=== PATIENT | female | born 1955 | race American Indian/Alaskan Native ===

== ENCOUNTER 2016-06-29 09:29 | Inpatient (IN) | payer OTHER ==
[2016-06-29] MEDS ORDERED: LASIX IV ONE ×2 (09:46→11:15)
--- NOTE | 2016-06-29 10:01 | Admit Criteria Form ---
Admission Criteria Documentation: HEART FAILURE: COMMON COMPLICATIONS Clinical Indications for Inpatient Care (Place 'X' for any and all applicable criteria): Ongoing inpatient care may be indicated for heart failure with ANY ONE of the following (1)(2)(3)(4)(5): [ ]I. Ongoing need for care for primary condition requiring frequent therapy adjustments because of changes in cardiac function (eg, drug dosage changes for drugs that are renally metabolized) [ ]II. New-onset heart failure [ ]III. Heart failure with decreased urine output not responsive to attempts to optimize volume status [ ]IV. Acute cardiac ischemia causing or associated with failure [X]V. Complications of heart failure, including ANY ONE of the following: [ ]a) Pericardial effusion [ ]b) Symptomatic pleural effusion [ ]c) O2 saturation <90% or PO2 < 60 mm Hg (8.0 kPa) on room air or require baseline supplemental O2 [ ]d) Tachypnea [X ]e) Dyspnea [ ]f) Syncope [ ]g) Change in mental status [ ]h) Acute renal insufficiency that is severe (reduction of more than 50% in estimated glomerular filtration rate from baseline) or progressive reduction of more than 25% in estimated glomerular filtration rate from baseline, with creatinine continuing to rise) [ ]i) Hemodynamic instability [ ]j) Anasarca [X ]k) Clinically significant metabolic abnormalities due to heart failure (eg, new-onset metabolic acidosis) Extended stay beyond goal length of stay for primary condition may be needed until ALL of the following are present(1)(3): [ ]a) Stable and effective diuretic regimen established (or patient on stable dialysis regimen if in chronic renal failure) [ ]b) Breathing comfortably at rest [ ]c) Saturation of arterial oxygen greater than 90% or at acceptable baseline [ ]d) Pulmonary edema absent or improved [ ]e) Hemodynamic stability [ ]f) Volume status acceptable on oral medication [ ]g) Peripheral or sacral edema absent or improved [ ]h) Renal function stable and manageable at a lower level of care [ ]i) Complications (eg, pleural effusion) resolved or manageable at a lower level of care [ ]j) Patient or caregiver has received written discharge instructions or educational material addressing activity level, diet, discharge medications, follow-up appointment, weight monitoring, and what to do if symptoms worsen The original [employer] content created by [employer] has been revised. The portions of the content which have been revised are identified through the use of italic text or in bold, and [facility] has neither reviewed nor approved the modified material.All other unmodified content is copyright [facility]. Please see references footnoted in the original [facility] edition 2016 Admission Criteria Met: Yes
[2016-06-29 10:34] LABS: Basophils % (Auto) 0.2 % (0.0-1.8); Eosinophils % (Auto) 1.7 % (0.0-4.3); Hematocrit 31.3 % (30.3-42.9); Hemoglobin 10.1 gm/dl (10.1-14.3); Mean Corpuscular HGB Conc 32 % (30-34); Mean Corpuscular Hemoglobin 28 pg (28-32); Mean Corpuscular Volume 88 fl (79-97); Platelet Count 218 K/mm3 (140-440); Red Blood Count 3.55 M/mm3 (3.65-5.03); Red Cell Distribution Width 15.8 % (13.2-15.2); White Blood Count 13.6 K/mm3 (4.5-11.0)
--- NOTE | 2016-06-29 10:36 | XRay Report ---
AP CHEST :06/29/16 10:03 CLINICAL: Shortness of breath. COMPARISON:None. FINDINGS: Large body habitus and suboptimal positioning. The heart is large. Central vascular congestion. Right basal opacification is suspicious for pneumonia. The pulmonary vessels are indistinct. No tubes or lines. IMPRESSION: Very limited examination. Suspect CHF and right basal pneumonia or atypical pulmonary edema.
[2016-06-29 10:41] LABS: Anion Gap 19 mmol/L; Blood Urea Nitrogen 38 mg/dL (7-17); Calcium 8.3 mg/dL (8.4-10.2); Carbon Dioxide 17 mmol/L (22-30); Chloride 107.2 mmol/L (98-107); Glucose 123 mg/dL (65-100); Potassium 5.1 mmol/L (3.6-5.0); Sodium 138 mmol/L (137-145)
[2016-06-29 11:27] LABS: ISTAT Base Excess -9; ISTAT HCO3 17.3; ISTAT PCO2 33.9 (35-45); ISTAT PH 7.315 (7.35-7.45); ISTAT PO2 146 (80-105); ISTAT SO2 99; ISTAT TCO2 18
--- NOTE | 2016-06-29 11:33 | Emergency Department Report ---
HPI - General Chief Complaint: Dyspnea/Respdistress Time Seen by Provider: 06/29/16 09:50 - HPI HPI: Chief complaint: Shortness of breath HPI: Patient is a 61-year-old female with a history of congestive heart failure , hypertension, diabetes and renal insufficiency states she's been having increased swelling to her extremities over the last week. Patient states the swelling will go down when she lays down at night. Patient denies fever, chest pain. Patient states she has a cough with white sputum. Patient had an episode of emesis this morning. Patient does not have any pain to her lower extremities Mode of arrival: [EMS] EMS placed the patient on BiPAP no meds were given as they were unable to place an IV Source: [Patient] Began: 5:00 this morning patient states the shortness of breath worsened Duration: Continuous Context: Patient states several months ago she was diagnosed with pneumonia Quality: Pain-free Severity: 0 out of 10 Improved with: O2 and BiPAP Worsened with: Nothing Associated signs and symptoms: See above ED Past Medical Hx - Past Medical History Previous Medical History?: Yes Hx Congestive Heart Failure: Yes Hx Diabetes: Yes Hx Kidney Stones: Yes (Early Kidney Failure) - Surgical History Past Surgical History?: Yes Hx Cholecystectomy: Yes - Social History Smoking Status: Unknown if ever smoked - Medications Home Medications: Home Medications Medication Instructions Recorded Confirmed Last Taken Type AtorvaSTATin [Lipitor] 20 mg PO DAILY 06/29/16 06/29/16 1 Day Ago History Carvedilol [Coreg] 25 mg PO BID 06/29/16 06/29/16 1 Day Ago History Hydrochlorothiazide [HCTZ] 25 mg PO QDAY 06/29/16 06/29/16 1 Day Ago History Insulin NPH/Regular [Novolin 70/30] 12 unit SQ QPM 06/29/16 06/29/16 1 Day Ago History Insulin NPH/Regular [Novolin 70/30] 13 unit SUB-Q QAM 06/29/16 06/29/16 1 Day Ago History Latanoprost 0.005% [Xalatan 0.005%] 1 drop OP QPM 06/29/16 06/29/16 1 Day Ago History amLODIPine [Norvasc] 10 mg PO DAILY 06/29/16 06/29/16 1 Day Ago History cloNIDine [Catapres] 0.1 mg PO BID 06/29/16 06/29/16 1 Day Ago History ED Review of Systems ROS: Stated complaint: KARLIE Other details as noted in HPI ROS Constitutional: No fever ENT: No uri symptoms Cardiovascular: No chest pain Respiratory: The HPI GI: No nausea vomiting or diarrhea : No dysuria frequency or urgency, Skin: No rash Neuro: No focal weakness or numbness Psych: No depression Taco/lymph: edema Physical Exam - Physical Exam Vital Signs: Vital Signs 06/29/16 06/29/16 06/29/16 09:31 10:23 10:24 Temperature 98 F Pulse Rate 83 82 80 Respiratory 36 H 25 H 25 H Rate Blood Pressure 152/77 138/66 Blood Pressure 152/77 [Left] O2 Sat by Pulse 96 100 Oximetry 06/29/16 06/29/16 10:28 10:35 Temperature Pulse Rate 81 Respiratory 25 H 24 Rate Blood Pressure Blood Pressure 138/66 [Left] O2 Sat by Pulse 100 100 Oximetry Physical Exam: GENERAL: The patient is well-developed well-nourished . Patient is currently on BiPAP with mild respiratory distress. HEENT: Normocephalic. Atraumatic. Extraocular motions are intact. Patient has moist mucous membranes. NECK: Supple. No meningitic signs are noted. There is no adenopathy noted. CHEST/LUNGS: Bibasilar rails There is mild respiratory distress noted. HEART/CARDIOVASCULAR: Regular. There is no tachycardia. There is no gallop rub or murmur. ABDOMEN: Abdomen is soft, nontender. Patient has normal bowel sounds. There is no abdominal distention. SKIN: There is no rash. There is 1-2+ bilateral pedal edema. There is no diaphoresis. NEURO: The patient is awake, alert, and oriented. The patient is cooperative. The patient has no focal neurologic deficits. The patient has normal speech. MUSCULOSKELETAL: There is no tenderness or deformity. There is no limitation range of motion. There is no evidence of acute injury. ED Course Vital Signs 06/29/16 06/29/16 06/29/16 09:31 10:23 10:24 Temperature 98 F Pulse Rate 83 82 80 Respiratory 36 H 25 H 25 H Rate Blood Pressure 152/77 138/66 Blood Pressure 152/77 [Left] O2 Sat by Pulse 96 100 Oximetry 06/29/16 06/29/16 10:28 10:35 Temperature Pulse Rate 81 Respiratory 25 H 24 Rate Blood Pressure Blood Pressure 138/66 [Left] O2 Sat by Pulse 100 100 Oximetry - Reevaluation(s) Reevaluation #1: 06/29/16 11:53 Patient given 20 mg of Lasix with 200 mL out mild improvement. Second dose of 40 mg of Lasix was given and patient was admitted to the hospitalist. ED Medical Decision Making - Lab Data Result diagrams: 06/29/16 10:06 06/29/16 10:06 Laboratory Tests 06/29/16 06/29/16 06/29/16 09:54 10:06 11:16 POC ABG pH 7.315 L POC ABG pCO2 33.9 L POC ABG pO2 146 H POC ABG HCO3 17.3 POC ABG Total CO2 18 POC ABG O2 Sat 99 POC ABG Base Excess -9 FiO2 50 Calcium 8.3 L NT-Pro-B Natriuret Pep 2135 H - EKG Data -: EKG Interpreted by Md EKG shows normal: sinus rhythm Rate: normal (80) - EKG Data When compared to previous EKG there are: previous EKG unavailable Interpretation: other (prolonged QT otherwise normal) - Radiology Data Radiology results: report reviewed (congestive heart failure) Critical care attestation.: If time is entered above; I have spent that time in minutes in the direct care of this critically ill patient, excluding procedure time. ED Disposition Clinical Impression: Renal insufficiency Congestive heart failure Qualifiers: Congestive heart failure type: unspecified congestive heart failure type Congestive heart failure chronicity: acute on chronic Qualified Code(s): I50.9 - Heart failure, unspecified Disposition: OP ADMITTED IP TO THIS HOSP Is pt being admited?: Yes Does the pt Need Aspirin: Yes Condition: Fair Time of Disposition: 11:16 (admit to the hospitalist)
[2016-06-29] MEDS ORDERED: ASPIRIN PO ONE (11:54)
--- NOTE | 2016-06-29 12:20 | History and Physical Report ---
History of Present Illness Date of examination: 06/29/16 Date of admission: 06/29/2016 Chief complaint: Increasing SOB History of present illness: Patient is a 61-year-old female with a history of congestive heart failure, hypertension, diabetes and renal insufficiency states she's been having increased swelling to her extremities over the last week. Patient states the swelling will go down when she lays down at night. Patient denies fever, chest pain. Patient states she has a cough with white sputum. Patient had an episode of emesis this morning. Patient does not have any pain to her lower extremities Mode of arrival: [EMS] EMS placed the patient on BiPAP no meds were given as they were unable to place an IV Source: [Patient] Began: 5:00 this morning patient states the shortness of breath worsened Duration: Continuous Context: Patient states several months ago she was diagnosed with pneumonia Quality: Pain-free Severity: 0 out of 10 Improved with: O2 and BiPAP Worsened with: Nothing Associated signs and symptoms: See above Past History Past Medical History: diabetes, heart failure, hypertension, hyperlipidemia, renal failure Past Surgical History: cholecystectomy Social history: lives with family Family history: hypertension Medications and Allergies Allergies Allergy/AdvReac Type Severity Reaction Status Date / Time No Known Allergies Allergy Unverified 06/29/16 09:31 Home Medications Medication Instructions Recorded Confirmed Last Taken Type AtorvaSTATin [Lipitor] 20 mg PO DAILY 06/29/16 06/29/16 1 Day Ago History Carvedilol [Coreg] 25 mg PO BID 06/29/16 06/29/16 1 Day Ago History Hydrochlorothiazide [HCTZ] 25 mg PO QDAY 06/29/16 06/29/16 1 Day Ago History Insulin NPH/Regular [Novolin 70/30] 12 unit SQ QPM 06/29/16 06/29/16 1 Day Ago History Insulin NPH/Regular [Novolin 70/30] 13 unit SUB-Q QAM 06/29/16 06/29/16 1 Day Ago History Latanoprost 0.005% [Xalatan 0.005%] 1 drop OP QPM 06/29/16 06/29/16 1 Day Ago History amLODIPine [Norvasc] 10 mg PO DAILY 06/29/16 06/29/16 1 Day Ago History cloNIDine [Catapres] 0.1 mg PO BID 06/29/16 06/29/16 1 Day Ago History Review of Systems All systems: negative Cardiovascular: orthopnea, edema, shortness of breath, dyspnea on exertion, leg edema Respiratory: shortness of breath, dyspnea on exertion Exam - Constitutional Vitals: Temp Pulse Resp BP Pulse Ox 98.0 F 81 24 138/66 100 06/29/16 09:31 06/29/16 10:28 06/29/16 10:35 06/29/16 10:06/29/16 10:35 General appearance: Present: no acute distress, well-nourished - EENT Eyes: Present: PERRL ENT: hearing intact, clear oral mucosa - Neck Neck: Present: supple, normal ROM - Respiratory Respiratory effort: normal Respiratory: bilateral: rales - Cardiovascular Heart Sounds: Present: S1 & S2. Absent: rub, click - Extremities Extremities: pulses symmetrical Extremity abnormal: edema (Pedal edema present) Peripheral Pulses: within normal limits - Abdominal General gastrointestinal: Present: soft, non-tender, non-distended, normal bowel sounds Female genitourinary: Present: normal - Integumentary Integumentary: Present: clear, warm, dry - Musculoskeletal Musculoskeletal: gait normal, strength equal bilaterally - Psychiatric Psychiatric: appropriate mood/affect, intact judgment & insight - Neurologic Neurologic: CNII-XII intact, moves all extremities Results - Labs CBC & Chem 7: 06/30/16 05:38 06/30/16 05:38 Labs: Abnormal lab results 06/29/16 06/29/16 06/29/16 Range/Units 09:54 10:06 10:06 WBC 13.6 H (4.5-11.0) K/mm3 RBC 3.55 L (3.65-5.03) M/mm3 RDW 15.8 H (13.2-15.2) % Lymph % (Auto) 6.2 L (13.4-35.0) % Lymph # 0.8 L (1.2-5.4) K/mm3 Gibson # 0.9 H (0.0-0.8) K/mm3 Seg Neutrophils % 85.0 H (40.0-70.0) % Seg Neutrophils # 11.5 H (1.8-7.7) K/mm3 POC ABG pH (7.35-7.45) POC ABG pCO2 (35-45) POC ABG pO2 (80-105) Potassium 5.1 H (3.6-5.0) mmol/L Chloride 107.2 H (98-107) mmol/L Carbon Dioxide 17 L (22-30) mmol/L BUN 38 H (7-17) mg/dL Creatinine 2.9 H (0.7-1.2) mg/dL Glucose 123 H (65-100) mg/dL Calcium 8.3 L (8.4-10.2) mg/dL NT-Pro-B Natriuret Pep 2135 H (0-900) pg/mL 06/29/16 Range/Units 11:16 WBC (4.5-11.0) K/mm3 RBC (3.65-5.03) M/mm3 RDW (13.2-15.2) % Lymph % (Auto) (13.4-35.0) % Lymph # (1.2-5.4) K/mm3 Gibson # (0.0-0.8) K/mm3 Seg Neutrophils % (40.0-70.0) % Seg Neutrophils # (1.8-7.7) K/mm3 POC ABG pH 7.315 L (7.35-7.45) POC ABG pCO2 33.9 L (35-45) POC ABG pO2 146 H (80-105) Potassium (3.6-5.0) mmol/L Chloride (98-107) mmol/L Carbon Dioxide (22-30) mmol/L BUN (7-17) mg/dL Creatinine (0.7-1.2) mg/dL Glucose (65-100) mg/dL Calcium (8.4-10.2) mg/dL NT-Pro-B Natriuret Pep (0-900) pg/mL - Imaging and Cardiology EKG: report reviewed (Sinus tach) Chest x-ray: report reviewed (c/w CHF) Assessment and Plan - Patient Problems (1) Acute exacerbation of CHF (congestive heart failure) Current Visit: Yes Status: Acute Plan to address problem: Lasix 40 mg q12 and Echo ordered (2) Renal insufficiency Current Visit: Yes Status: Chronic Plan to address problem: Donna Perez consulted (3) IDDM (insulin dependent diabetes mellitus) Current Visit: Yes Status: Chronic Plan to address problem: Cont Insulin and coverage (4) HTN (hypertension) Current Visit: Yes Status: Chronic Qualifiers: Hypertension type: essential hypertension Qualified Code(s): I10 - Essential (primary) hypertension Plan to address problem: Cont Anti hypertensives (5) Glaucoma Current Visit: Yes Status: Chronic Qualifiers: Laterality: bilateral (6) HLD (hyperlipidemia) Current Visit: Yes Status: Chronic Qualifiers: Hyperlipidemia type: mixed hyperlipidemia Qualified Code(s): E78.2 - Mixed hyperlipidemia Plan to address problem: Cont statins (7) DVT prophylaxis Current Visit: Yes Status: Acute Plan to address problem: On lovenox
[2016-06-29] MEDS ORDERED: TYLENOL PO PRN (12:25)
[2016-06-29] MEDS ORDERED: ZOFRAN IV PRN (12:25)
[2016-06-29] MEDS ORDERED: MILK OF MAGNESIA PO PRN (12:25)
[2016-06-29] MEDS ORDERED: DILAUDID IV PRN (12:25)
[2016-06-29] MEDS ORDERED: NOVOLOG SUB-Q NR (12:34)
[2016-06-29] MEDS ORDERED: DULCOLAX PR PRN (13:00)
[2016-06-29] MEDS: HCTZ PO SCH (16:03)
[2016-06-29] MEDS: CATAPRES PO SCH ×2 (16:03→21:56)
[2016-06-29] MEDS: NORVASC PO SCH (16:04)
[2016-06-29] MEDS: PEPCID PO SCH ×2 (16:04→21:56)
[2016-06-29] MEDS ORDERED: ASPIRIN ONE (16:05)
[2016-06-29] MEDS: COREG PO SCH ×2 (16:06→21:57)
[2016-06-29] MEDS ORDERED: XALATAN 0.005% OU SCH (18:00)
[2016-06-29] MEDS: LASIX IV SCH (19:07)
[2016-06-29] MEDS ORDERED: PEPCID PO SCH (22:00)
[2016-06-30] MEDS: LASIX IV SCH ×2 (06:28→17:08)
[2016-06-30 06:36] LABS: Basophils % (Auto) 0.3 % (0.0-1.8); Eosinophils % (Auto) 2.4 % (0.0-4.3); Hematocrit 29.4 % (30.3-42.9); Hemoglobin 9.4 gm/dl (10.1-14.3); Mean Corpuscular HGB Conc 32 % (30-34); Mean Corpuscular Hemoglobin 28 pg (28-32); Mean Corpuscular Volume 87 fl (79-97); Platelet Count 208 K/mm3 (140-440); Red Blood Count 3.39 M/mm3 (3.65-5.03); Red Cell Distribution Width 16.4 % (13.2-15.2); White Blood Count 7.2 K/mm3 (4.5-11.0)
[2016-06-30 06:56] LABS: Albumin 3.4 g/dL (3.9-5); Albumin/Globulin Ratio 0.9 %; BUN/Creatinine Ratio 12.9; Bilirubin,Total 0.2 mg/dL (0.1-1.2); Calcium 8.4 mg/dL (8.4-10.2); Chloride 103.8 mmol/L (98-107); Potassium 4.4 mmol/L (3.6-5.0)
[2016-06-30] MEDS: COREG PO SCH ×2 (10:04→21:59)
[2016-06-30] MEDS: PEPCID PO SCH ×2 (10:04→22:01)
[2016-06-30] MEDS: CATAPRES PO SCH ×2 (10:04→21:59)
[2016-06-30] MEDS: LOVENOX SUB-Q SCH (10:04)
[2016-06-30] MEDS: NORVASC PO SCH (10:05)
[2016-06-30] MEDS: HCTZ PO SCH (10:23)
--- NOTE | 2016-06-30 17:11 | Progress Note ---
Assessment and Plan Assessment and plan: Acute on chronic congestive heart failure unidentified was a systolic or diastolic - history of congestive heart failure and was treated in [facility] in January - Echo is done here pending the reading - Patient started with her home medications - IV Lasix 40 mg BID - CHF could be exacerbated by pneumonia - Fluid restriction, monitor ins and outs - CXR suggestive of pulmonary congestion and atypical pneumonia Atypical pneumonia - Patient is started on by mouth azithromycin Acute on chronic kidney disease - Patient she has kidney problem and has been following with Dr. Roy - Nephrology consult was placed - Renal ultrasound done Diabetes mellitus - Patient is on insulin - Sliding-scale insulin added - We will monitor accu checks, ADA diet Hypertension - Controlled - Continue home medications DVT Prophylaxis - On renally Lovenox Disposition Plan: continue inpatient care History Interval history: I have seen and evaluated the patient. Patient is getting better, she has edema on her legs. Patient has dry cough. Hospitalist Physical - Physical exam Narrative exam: Not in cardiopulmonary distress. The patient Is Obese. Vital signs as documented. Head exam is unremarkable. No scleral icterus . Neck is without jugular venous distension, thyromegaly, or carotid bruits. Lungs are bibasilar posterior rales. Cardiac exam reveals regular rate and Rhythm. First and second heart sounds normal. No murmurs, rubs or gallops. Abdominal exam reveals normal bowel sounds, no masses, no organomegaly and no aortic enlargement. Extremities significant for bilateral pedal and pretibial +2 edema. [employer]: Alert and oriented 3. No focal weakness. - Constitutional Vitals: Temp Pulse Resp BP Pulse Ox 98.8 F 71 18 137/65 97 06/30/16 16:07 06/30/16 16:07 06/30/16 16:07 06/30/16 16:07 06/30/16 16:07 General appearance: Present: no acute distress, well-nourished Results - Labs CBC & Chem 7: 06/30/16 05:38 06/30/16 05:38 Labs: Laboratory Last Values WBC 7.2 K/mm3 (4.5-11.0) 06/30/16 05:38 RBC 3.39 M/mm3 (3.65-5.03) L 06/30/16 05:38 Hgb 9.4 gm/dl (10.1-14.3) L 06/30/16 05:38 Hct 29.4 % (30.3-42.9) L 06/30/16 05:38 MCV 87 fl (79-97) 06/30/16 05:38 MCH 28 pg (28-32) 06/30/16 05:38 MCHC 32 % (30-34) 06/30/16 05:38 RDW 16.4 % (13.2-15.2) H 06/30/16 05:38 Plt Count 208 K/mm3 (140-440) 06/30/16 05:38 Lymph % (Auto) 14.8 % (13.4-35.0) 06/30/16 05:38 [place] % (Auto) 8.3 % (0.0-7.3) H 06/30/16 05:38 Eos % (Auto) 2.4 % (0.0-4.3) 06/30/16 05:38 Baso % (Auto) 0.3 % (0.0-1.8) 06/30/16 05:38 Lymph # 1.1 K/mm3 (1.2-5.4) L 06/30/16 05:38 [place] # 0.6 K/mm3 (0.0-0.8) 06/30/16 05:38 Eos # 0.2 K/mm3 (0.0-0.4) 06/30/16 05:38 Baso # 0.0 K/mm3 (0.0-0.1) 06/30/16 05:38 Seg Neutrophils % 74.2 % (40.0-70.0) H 06/30/16 05:38 Seg Neutrophils # 5.4 K/mm3 (1.8-7.7) 06/30/16 05:38 POC ABG pH 7.315 (7.35-7.45) L 06/29/16 11:16 POC ABG pCO2 33.9 (35-45) L 06/29/16 11:16 POC ABG pO2 146 (80-105) H 06/29/16 11:16 POC ABG HCO3 17.3 06/29/16 11:16 POC ABG Total CO2 18 06/29/16 11:16 POC ABG O2 Sat 99 06/29/16 11:16 POC ABG Base Excess -9 06/29/16 11:16 FiO2 50 % 06/29/16 11:16 Sodium 140 mmol/L (137-145) 06/30/16 05:38 Potassium 4.4 mmol/L (3.6-5.0) 06/30/16 05:38 Chloride 103.8 mmol/L (98-107) 06/30/16 05:38 Carbon Dioxide 20 mmol/L (22-30) L 06/30/16 05:38 Anion Gap 21 mmol/L 06/30/16 05:38 BUN 40 mg/dL (7-17) H 06/30/16 05:38 Creatinine 3.1 mg/dL (0.7-1.2) H 06/30/16 05:38 Estimated GFR 19 ml/min 06/30/16 05:38 BUN/Creatinine Ratio 12.90 % 06/30/16 05:38 Glucose 74 mg/dL (65-100) 06/30/16 05:38 POC Glucose 77 (70-105) 06/30/16 07:41 Hemoglobin A1c 8.8 % (4-6) H 06/29/16 10:06 Calcium 8.4 mg/dL (8.4-10.2) 06/30/16 05:38 Total Bilirubin 0.2 mg/dL (0.1-1.2) 06/30/16 05:38 AST 11 units/L (5-40) 06/30/16 05:38 ALT 10 units/L (7-56) 06/30/16 05:38 Alkaline Phosphatase 72 units/L (35-129) 06/30/16 05:38 Troponin T < 0.010 ng/mL (0.00-0.029) 06/29/16 10:06 NT-Pro-B Natriuret Pep 2135 pg/mL (0-900) H 06/29/16 09:54 Total Protein 7.0 g/dL (6.3-8.2) 06/30/16 05:38 Albumin 3.4 g/dL (3.9-5) L 06/30/16 05:38 Albumin/Globulin Ratio 0.9 % 06/30/16 05:38 Significant for worsening renal function
[2016-06-30] MEDS: ZITHROMAX PO SCH (17:25)
[2016-06-30] MEDS: XALATAN 0.005% OU SCH (22:01)
[2016-07-01] MEDS: LASIX IV SCH ×2 (05:24→21:22)
[2016-07-01 05:52] LABS: Basophils % (Auto) 0.3 % (0.0-1.8); Eosinophils % (Auto) 4.4 % (0.0-4.3); Hematocrit 28.9 % (30.3-42.9); Hemoglobin 9.1 gm/dl (10.1-14.3); Mean Corpuscular HGB Conc 32 % (30-34); Mean Corpuscular Hemoglobin 27 pg (28-32); Mean Corpuscular Volume 87 fl (79-97); Platelet Count 189 K/mm3 (140-440); Red Blood Count 3.34 M/mm3 (3.65-5.03); Red Cell Distribution Width 16.1 % (13.2-15.2); White Blood Count 5.6 K/mm3 (4.5-11.0)
[2016-07-01 06:02] LABS: BUN/Creatinine Ratio 12.57; Potassium 4.2 mmol/L (3.6-5.0)
--- NOTE | 2016-07-01 10:09 | Consultation ---
History of Present Illness - Reason for Consult Consult date: 07/01/16 chronic renal failure Past History Past Medical History: diabetes, heart failure, hypertension, hyperlipidemia, renal failure Past Surgical History: cholecystectomy Social history: lives with family Family history: hypertension Medications and Allergies Allergies Allergy/AdvReac Type Severity Reaction Status Date / Time No Known Allergies Allergy Unverified 06/29/16 09:31 Home Medications Medication Instructions Recorded Confirmed Last Taken Type AtorvaSTATin [Lipitor] 20 mg PO DAILY 06/29/16 06/29/16 1 Day Ago History Carvedilol [Coreg] 25 mg PO BID 06/29/16 06/29/16 1 Day Ago History Hydrochlorothiazide [HCTZ] 25 mg PO QDAY 06/29/16 06/29/16 1 Day Ago History Insulin NPH/Regular [Novolin 70/30] 12 unit SQ QPM 06/29/16 06/29/16 1 Day Ago History Insulin NPH/Regular [Novolin 70/30] 13 unit SUB-Q QAM 06/29/16 06/29/16 1 Day Ago History Latanoprost 0.005% [Xalatan 0.005%] 1 drop OP QPM 06/29/16 06/29/16 1 Day Ago History amLODIPine [Norvasc] 10 mg PO DAILY 06/29/16 06/29/16 1 Day Ago History cloNIDine [Catapres] 0.1 mg PO BID 06/29/16 06/29/16 1 Day Ago History Active Meds: Active Medications Acetaminophen (Tylenol) 650 mg PO Q4H PRN PRN Reason: Pain MILD(1-3)/Fever >100.5/HENRY Amlodipine Besylate (Norvasc) 10 mg PO DAILY [facility] Last Admin: 06/30/16 10:05 Dose: 10 mg Atorvastatin Calcium (Lipitor) 20 mg PO DAILY [facility] Last Admin: 06/30/16 10:04 Dose: 20 mg Azithromycin (Zithromax) 500 mg PO QDAY [facility] Last Admin: 06/30/16 17:25 Dose: 500 mg Bisacodyl (Dulcolax) 10 mg HI QDAY PRN PRN Reason: Constipation unrelieved by MOM Carvedilol (Coreg) 25 mg PO BID [facility] Last Admin: 06/30/16 21:59 Dose: 25 mg Clonidine HCl (Catapres) 0.1 mg PO BID [facility] Last Admin: 06/30/16 21:59 Dose: 0.1 mg Enoxaparin Sodium (Lovenox) 30 mg SUB-Q QDAY [facility] Last Admin: 06/30/16 10:04 Dose: 30 mg Famotidine (Pepcid) 10 mg PO BID [facility] Last Admin: 06/30/16 22:01 Dose: 10 mg Furosemide (Lasix) 40 mg IV 0600,1800 [facility] Last Admin: 07/01/16 05:24 Dose: 40 mg Hydrochlorothiazide (Hctz) 25 mg PO QDAY [facility] Last Admin: 06/30/16 10:23 Dose: 25 mg Hydromorphone HCl (Dilaudid) 0.5 mg IV Q3H PRN PRN Reason: Pain , Severe (7-10) Insulin Human Isoph/Insulin Regular (Novolin 70/30) 15 unit SUB-Q QAMDIAB [facility] Insulin Human Isoph/Insulin Regular (Novolin 70/30) 15 unit SUB-Q QPM [facility] Latanoprost (Xalatan 0.005%) 1 drops OU QPM [facility] Last Admin: 06/30/16 22:01 Dose: 1 drops Magnesium Hydroxide (Milk Of Magnesia) 30 ml PO Q4H PRN PRN Reason: Constipation Ondansetron HCl (Zofran) 4 mg IV Q8H PRN PRN Reason: N/V unrelieved by Reglan Review of Systems Constitutional: fatigue, weakness, malaise Cardiovascular: orthopnea, shortness of breath, dyspnea on exertion, paroxysmal nocturnal dyspnea Respiratory: shortness of breath, dyspnea on exertion Exam - Vital Signs Vital signs: Vital Signs Temp Pulse Resp BP Pulse Ox 98.0 F 83 36 H 152/77 96 06/29/16 09:31 06/29/16 09:31 06/29/16 09:31 06/29/16 09:31 06/29/16 09:31 - Physical Exam Narrative exam: GENERAL: The patient is well-developed well-nourished . Patient is currently on BiPAP with mild respiratory distress. HEENT: Normocephalic. Atraumatic. Extraocular motions are intact. Patient has moist mucous membranes. NECK: Supple. No meningitic signs are noted. There is no adenopathy noted. CHEST/LUNGS: Bibasilar rails There is mild respiratory distress noted. HEART/CARDIOVASCULAR: Regular. There is no tachycardia. There is no gallop rub or murmur. ABDOMEN: Abdomen is soft, nontender. Patient has normal bowel sounds. There is no abdominal distention. SKIN: There is no rash. There is 1-2+ bilateral pedal edema. There is no diaphoresis. NEURO: The patient is awake, alert, and oriented. The patient is cooperative. The patient has no focal neurologic deficits. The patient has normal speech. MUSCULOSKELETAL: There is no tenderness or deformity. There is no limitation range of motion. There is no evidence of acute injury. Results - Lab Results 07/01/16 04:38 07/01/16 04:38 Most recent lab results Calcium 8.0 mg/dL (8.4-10.2) L 07/01/16 04:38 Assessment and Plan Impression: * ADEBAYO on ckd 4-cr 3.5 in office 06/2016 * acute on chr CHF * htn * dm Plan: * cr 3.5 at this time * 24hr crcl * strict i/os * renal diet * follow up daily lytes * continue diuresis
--- NOTE | 2016-07-01 11:02 | Ultrasound Report ---
ULTRASOUND RENAL BILATERAL HISTORY: Renal failure. TECHNIQUE: Transabdominal ultrasound. FINDINGS: The right kidney measures 10.8 cm. The left kidney measures 9.9 cm. The renal parenchyma is slightly hyperechoic bilaterally consistent with medical renal disease. A 2.4 cm simple cyst is noted in the superior right kidney. No evidence for mass, calculus, hydronephrosis or perinephric fluid. The bladder is decompressed with a Henderson catheter. IMPRESSION: Findings consistent with medical renal disease. 2 cm right renal cyst.
--- NOTE | 2016-07-01 11:29 | Echocardiography Report ---
Transthoracic Echocardiogram Indication: CHF BP: 119/63 Conclusions *1. LV function normal, EF 55%. *2. Mild LA dilatation. *3. Mild MVP with mild MR. *4. Small pericardial effusion, no tamponade. Findings Procedure Info: The study quality is fair. Left Ventricle: The left ventricular chamber size is normal. Mild concentric left ventricular hypertrophy is observed. Global left ventricular wall motion and contractility are within normal limits. Global left ventricular systolic function is normal. The estimated ejection fraction is 50-55%. Abnormal left ventricular diastolic function is observed. Left Atrium: The left atrium is mildly dilated. Right Ventricle: The right ventricular cavity size is normal. The right ventricular global systolic function is normal. Right Atrium: The right atrial cavity size is normal. The interatrial septum appears normal. Aortic Valve: The aortic valve is trileaflet. The aortic valve leaflets are mildly thickened. Systolic excursion of the aortic valve is normal. There is trace of aortic regurgitation. There is no evidence of aortic stenosis. Mitral Valve: The mitral valve leaflets appear myxomatous. The mitral valve leaflets are mildly thickened. There is mild mitral valve prolapse. There is mild mitral regurgitation. There is no evidence of mitral stenosis. Tricuspid Valve: The tricuspid valve leaflets are normal. There is mild tricuspid regurgitation. The right ventricular systolic pressure is calculated at 30 mmHg. There is evidence of borderline pulmonary hypertension. There is no tricuspid stenosis. Pulmonic Valve: The pulmonic valve appears normal. There is no evidence of pulmonic regurgitation. There is no pulmonic stenosis. Pericardium: There is a small pericardial effusion. There is a circumferential pericardial effusion. The pericardial effusion is seen adjacent to the right atrium. Aorta: There is no dilatation of the ascending aorta. There is no dilatation of the aortic root. Venous: The inferior vena cava appears normal in size. Measurements Chambers MM Name Value Normal Range Ao root diameter (MM) 2.8 cm (2 - 3.7) LA dimension (AP) MM 4.5 cm (1.9 - 4) LA:Ao ratio (MM) 1.61 ratio - AV cusp separation (MM) 2.1 cm (1.5 - 2.6) Chambers 2D Name Value Normal Range RVIDd (AP) 2D 3.49 cm (0.9 - 2.6) IVSd (2D) 1.44 cm (0.6 - 1.1) LVPWd (2D) 1.24 cm (0.6 - 1.1) IVS:LVPW ratio (2D) 1.16 ratio - LVIDd (2D) 4.96 cm (3.7 - 5.6) LVIDs (2D) 2.81 cm (2 - 3.8) LV FS (Teichholz) (2D) 43.3 % - LV FS (cube) (2D) 43.3 % - EF Teichholz (2D) 74.3 % - Ao root diameter (2D) 2.8 cm (2 - 3.7) LA dimension (AP) 2D 4.3 cm (1.9 - 4) LA:Ao ratio (2D) 1.54 ratio - Volumes/Mass Name Value Normal Range LA ESV SP 4CH (MOD) 70 ml - LA ESV SP 2CH (MOD) 48 ml - LA ESV BP (MOD) 60 ml - LA ESV BP (MOD) index 31.1 ml/m2 - Diastolic/Systolic Function Name Value Normal Range MV E-wave Vmax 1.51 m/sec - MV A-wave Vmax 0.78 m/sec - MV E:A ratio 1.9 ratio - LV septal e' Vmax 0.06 m/sec - LV lateral e' Vmax 0.08 m/sec - LV E:e' septal ratio 23.5 ratio - LV E:e' lateral ratio 20.1 ratio - Aortic Valve Name Value Normal Range AV VTI 37.5 cm - AV mean gradient 7 mmHg - LVOT diameter 2 cm - LVOT VTI 23.5 cm - LVOT mean gradient 3 mmHg - SV LVOT 74 ml - YVETTE (continuity VTI) 1.97 cm2 - Mitral Valve Name Value Normal Range MV Vmax 1.86 m/sec - MV VTI 35.2 cm - MV peak gradient 14 mmHg - MV mean gradient 3 mmHg - MV PHT 88 msec - MVA (PHT) 2.5 cm2 - MVA (continuity VTI) 2.1 cm2 - Tricuspid Valve Name Value Normal Range TR Vmax 2.58 m/sec - TR peak gradient 27 mmHg - RAP 3 mmHg - RVSP 30 mmHg - Pulmonic Valve/Qp:Qs Name Value Normal Range PV Vmax 0.7 m/sec - PV peak gradient 2 mmHg -
[2016-07-01] MEDS: NORVASC PO SCH (12:11)
[2016-07-01] MEDS: CATAPRES PO SCH ×2 (12:12→21:23)
[2016-07-01] MEDS: LOVENOX SUB-Q SCH (12:12)
[2016-07-01] MEDS: HCTZ PO SCH (12:13)
[2016-07-01] MEDS: ZITHROMAX PO SCH (12:13)
[2016-07-01] MEDS: COREG PO SCH ×2 (12:13→21:23)
[2016-07-01] MEDS: PEPCID PO SCH ×2 (12:16→21:23)
--- NOTE | 2016-07-01 16:01 | Progress Note ---
Assessment and Plan Assessment and plan: Acute on chronic congestive heart failure unidentified was a systolic or diastolic - history of congestive heart failure and was treated in [facility] in January - Echo is done here pending the reading - Patient started with her home medications - IV Lasix 40 mg BID - CHF could be exacerbated by pneumonia - Fluid restriction, monitor ins and outs - CXR suggestive of pulmonary congestion and atypical pneumonia Atypical pneumonia - Patient is started on by mouth azithromycin Acute on chronic kidney disease - Patient she has kidney problem and has been following with Dr. Roy - Nephrology consult appreciated - Renal ultrasound done - Nephrology wants Diabetes mellitus - Patient is on insulin - Sliding-scale insulin added - We will monitor accu checks, ADA diet Hypertension - Controlled - Continue home medications DVT Prophylaxis - On renally Lovenox Disposition Plan: Per nephrology History Interval history: I have seen and evaluated the patient. Patient said improved significantly, she has minimal edema on her legs. Patient has dry cough. Hospitalist Physical - Physical exam Narrative exam: Not in cardiopulmonary distress. The patient Is Obese. Vital signs as documented. Head exam is unremarkable. No scleral icterus . Neck is without jugular venous distension, thyromegaly, or carotid bruits. Lungs are bibasilar posterior rales. Cardiac exam reveals regular rate and Rhythm. First and second heart sounds normal. No murmurs, rubs or gallops. Abdominal exam reveals normal bowel sounds, no masses, no organomegaly and no aortic enlargement. Extremities significant for bilateral pedal and pretibial +1 edema. ENGINEERING PSYCHOLOGIST: Alert and oriented 3. No focal weakness. - Constitutional Vitals: Temp Pulse Resp BP Pulse Ox 97.6 F 75 20 116/56 98 07/01/16 11:20 07/01/16 12:13 07/01/16 11:20 07/01/16 11:20 07/01/16 11:20 General appearance: Present: no acute distress, well-nourished Results - Labs CBC & Chem 7: 07/01/16 04:38 07/01/16 04:38 Labs: Laboratory Last Values WBC 5.6 K/mm3 (4.5-11.0) 07/01/16 04:38 RBC 3.34 M/mm3 (3.65-5.03) L 07/01/16 04:38 Hgb 9.1 gm/dl (10.1-14.3) L 07/01/16 04:38 Hct 28.9 % (30.3-42.9) L 07/01/16 04:38 MCV 87 fl (79-97) 07/01/16 04:38 MCH 27 pg (28-32) L 07/01/16 04:38 MCHC 32 % (30-34) 07/01/16 04:38 RDW 16.1 % (13.2-15.2) H 07/01/16 04:38 Plt Count 189 K/mm3 (140-440) 07/01/16 04:38 Lymph % (Auto) 26.2 % (13.4-35.0) 07/01/16 04:38 Weston % (Auto) 11.4 % (0.0-7.3) H 07/01/16 04:38 Eos % (Auto) 4.4 % (0.0-4.3) H 07/01/16 04:38 Baso % (Auto) 0.3 % (0.0-1.8) 07/01/16 04:38 Lymph # 1.5 K/mm3 (1.2-5.4) 07/01/16 04:38 Weston # 0.6 K/mm3 (0.0-0.8) 07/01/16 04:38 Eos # 0.2 K/mm3 (0.0-0.4) 07/01/16 04:38 Baso # 0.0 K/mm3 (0.0-0.1) 07/01/16 04:38 Seg Neutrophils % 57.7 % (40.0-70.0) 07/01/16 04:38 Seg Neutrophils # 3.2 K/mm3 (1.8-7.7) 07/01/16 04:38 POC ABG pH 7.315 (7.35-7.45) L 06/29/16 11:16 POC ABG pCO2 33.9 (35-45) L 06/29/16 11:16 POC ABG pO2 146 (80-105) H 06/29/16 11:16 POC ABG HCO3 17.3 06/29/16 11:16 POC ABG Total CO2 18 06/29/16 11:16 POC ABG O2 Sat 99 06/29/16 11:16 POC ABG Base Excess -9 06/29/16 11:16 FiO2 50 % 06/29/16 11:16 Sodium 140 mmol/L (137-145) 07/01/16 04:38 Potassium 4.2 mmol/L (3.6-5.0) 07/01/16 04:38 Chloride 106.0 mmol/L (98-107) 07/01/16 04:38 Carbon Dioxide 21 mmol/L (22-30) L 07/01/16 04:38 Anion Gap 17 mmol/L 07/01/16 04:38 BUN 44 mg/dL (7-17) H 07/01/16 04:38 Creatinine 3.5 mg/dL (0.7-1.2) H 07/01/16 04:38 Estimated GFR 16 ml/min 07/01/16 04:38 BUN/Creatinine Ratio 12.57 % 07/01/16 04:38 Glucose 91 mg/dL (65-100) 07/01/16 04:38 POC Glucose 160 (70-105) H 07/01/16 12:15 Hemoglobin A1c 8.8 % (4-6) H 06/29/16 10:06 Calcium 8.0 mg/dL (8.4-10.2) L 07/01/16 04:38 Total Bilirubin 0.2 mg/dL (0.1-1.2) 06/30/16 05:38 AST 11 units/L (5-40) 06/30/16 05:38 ALT 10 units/L (7-56) 06/30/16 05:38 Alkaline Phosphatase 72 units/L (35-129) 06/30/16 05:38 Troponin T < 0.010 ng/mL (0.00-0.029) 06/29/16 10:06 NT-Pro-B Natriuret Pep 2135 pg/mL (0-900) H 06/29/16 09:54 Total Protein 7.0 g/dL (6.3-8.2) 06/30/16 05:38 Albumin 3.4 g/dL (3.9-5) L 06/30/16 05:38 Albumin/Globulin Ratio 0.9 % 06/30/16 05:38
[2016-07-01] MEDS: XALATAN 0.005% OU SCH (21:23)
[2016-07-02] MEDS: LASIX IV SCH (05:51)
[2016-07-02 06:16] LABS: BUN/Creatinine Ratio 14.41; Calcium 8.3 mg/dL (8.4-10.2); Chloride 104.6 mmol/L (98-107)
--- NOTE | 2016-07-02 08:31 | Progress Note ---
Assessment and Plan Impression: * ADEBAYO on ckd 4-cr 3.5 in office 06/2016 * acute on chr CHF * htn * dm Plan: * cr 3.4 at this time and stable * follow up cxr today, monitor for improvement * 24hr crcl * strict i/os * renal diet * follow up daily lytes * continue diuresis * if primary team desires to dc patient, follow up cxr to ensure resolution of edema Subjective Date of service: 07/02/16 Principal diagnosis: chf vs pna Interval history: resting well in bed today, no acute events Objective - Exam Narrative Exam: GENERAL: The patient is well-developed well-nourished . Patient is currently on BiPAP with mild respiratory distress. HEENT: Normocephalic. Atraumatic. Extraocular motions are intact. Patient has moist mucous membranes. NECK: Supple. No meningitic signs are noted. There is no adenopathy noted. CHEST/LUNGS: Bibasilar rails There is mild respiratory distress noted. HEART/CARDIOVASCULAR: Regular. There is no tachycardia. There is no gallop rub or murmur. ABDOMEN: Abdomen is soft, nontender. Patient has normal bowel sounds. There is no abdominal distention. SKIN: There is no rash. There is 1-2+ bilateral pedal edema. There is no diaphoresis. NEURO: The patient is awake, alert, and oriented. The patient is cooperative. The patient has no focal neurologic deficits. The patient has normal speech. MUSCULOSKELETAL: There is no tenderness or deformity. There is no limitation range of motion. There is no evidence of acute injury. - Vital Signs Vital signs: Vital Signs - 12hr 07/01/16 07/01/16 07/02/16 20:42 22:00 00:13 Temperature 98.1 F Pulse Rate Pulse Rate [ 66 67 Left Radial] Respiratory 18 18 Rate Blood Pressure 138/56 135/72 [Left Radial Artery] O2 Sat by Pulse 98 99 97 Oximetry 07/02/16 07/02/16 07/02/16 04:00 06:00 07:27 Temperature 97.7 F 97.9 F Pulse Rate 66 Pulse Rate [ 65 Left Radial] Respiratory 18 16 Rate Blood Pressure 115/66 123/61 [Left Radial Artery] O2 Sat by Pulse 98 99 Oximetry - Lab 07/01/16 04:38 07/02/16 04:32 Most recent lab results Calcium 8.3 mg/dL (8.4-10.2) L 07/02/16 04:32
--- NOTE | 2016-07-02 09:11 | XRay Report ---
CHEST XRAY, 2 VIEWS: History: Shortness of breath. Findings: Two views of the chest demonstrate the mediastinal contour to be of normal size and shape. The heart is enlarged. The lungs are clear and fully expanded, and the soft tissues and bony structures are normal. IMPRESSION: Cardiomegaly. Otherwise, unremarkable exam.
--- NOTE | 2016-07-02 09:15 | Query- Pneumonia ---
Mae Fox___Janette Date:____07/02/16 Grid Trimmer/CDS: Nic Erinnikko Phone#: [phone] Exercise your independent professional judgment when responding to query. Questions asked do not imply a particular answer is desired or expected. We greatly appreciate your clarification on this issue. 61 year old female was admitted on 06/29/16. The patient presented with shortness of breath. The progress note states " Atypical pneumonia, patient is started on by mouth azithromycin" Please further specify known or suspected Etiology: [ ] Aspiration Pneumonia [ ] Gram Negative Pneumonia [ ] Gram Positive Pneumonia [ ] Pseudomonas Pneumonia [ ] MRSA - related Pneumonia [ ] Viral Pneumonia [ ] Candidal Pneumonia [ ] Postoperative Pneumonia [x ] Lobar/Basilar Pneumonia [x ] Community Acquired Pneumonia [ ] Bacterial, other (Please specify organism if possible) [ ] Other: [ ] Unable to determine Present on Admission: [ x] Yes (Y) [ ] Clinically undeterminable (W) [ ] No (N) Please also document response in your Progress Notes and/or Discharge Summary and indicate if the condition was present on admission. MTDD
--- NOTE | 2016-07-02 09:35 | Discharge Summary ---
Providers - Providers Date of Admission: 06/29/16 12:25 Attending physician: ARLENE DEE 06/30/16 10:02 Consult to Physician [CONS] Routine Consulting Provider: KALIE BARRIGA Reason For Exam: ckd Place consult to:: dr barriga Notified:: dr barriga Primary care physician: [facility] Hospitalization Condition: Fair Disposition: STILL A PATIENT Exam - Constitutional Vitals: Temp Pulse Resp BP Pulse Ox 97.9 F 66 16 123/61 98 07/02/16 07:27 07/02/16 06:00 07/02/16 07:27 07/02/16 07:27 07/02/16 08:36 Plan Follow up with: PRIMARY CAREMD [Primary Care Provider] - 3-5 Days
[2016-07-02] MEDS: LOVENOX SUB-Q SCH (12:20)
[2016-07-02] MEDS: ZITHROMAX PO SCH (12:20)
[2016-07-02] MEDS: PEPCID PO SCH (12:21)
[2016-07-02] MEDS: COREG PO SCH (12:21)
[2016-07-02] MEDS: CATAPRES PO SCH (12:33)
[2016-07-02] MEDS: HCTZ PO SCH (12:33)
[2016-07-02] MEDS: NORVASC PO SCH (12:37)
[2016-07-02 12:42] VITALS: BP 126/70
== END 2016-07-02 14:51 | disposition home or self-care (01) | DRG 291 ==
LOC: ED 09:29 → 4A 12:25
PROVIDERS: ADMIT Internal Medicine; ATTEND Internal Medicine
PROC: 4A033R1 Measurement of Arterial Saturation, Peripheral, Percutaneous Approach (ICD-10-PCS; principal; 2016-06-28)
PROC: 5A09457 Assistance with Respiratory Ventilation, 24-96 Consecutive Hours, Continuous Positive Airway Pressure (ICD-10-PCS; 2016-06-29)
DX: I13.0 Hypertensive heart and chronic kidney disease with heart failure and stage 1 through stage 4 chronic kidney disease, or unspecified chronic kidney disease (principal); I50.43 Acute on chronic combined systolic (congestive) and diastolic (congestive) heart failure; J18.9 Pneumonia, unspecified organism; N17.9 Acute kidney failure, unspecified; N18.4 Chronic kidney disease, stage 4 (severe); E11.22 Type 2 diabetes mellitus with diabetic chronic kidney disease; H40.9 Unspecified glaucoma; E78.2 Mixed hyperlipidemia; Z90.49 Acquired absence of other specified parts of digestive tract; Z82.49 Family history of ischemic heart disease and other diseases of the circulatory system
CPT/HCPCS: 36415; 51702; 71010; 71020; 76770; 80048; 80053; 82803; 82962; 83036; 83880; 84484; 85025; 93005; 93010; 93306; 94760; 96374; 96375; A9270-GY; J1650; J1815; J1940

== ENCOUNTER 2016-08-14 04:26 | Inpatient (IN) | payer OTHER ==
[2016-08-14 05:24] LABS: Basophils % (Auto) 0.5 % (0.0-1.8); Eosinophils % (Auto) 2.6 % (0.0-4.3); Hematocrit 32.8 % (30.3-42.9); Hemoglobin 10.4 gm/dl (10.1-14.3); Mean Corpuscular HGB Conc 32 % (30-34); Mean Corpuscular Hemoglobin 27 pg (28-32); Mean Corpuscular Volume 87 fl (79-97); Platelet Count 227 K/mm3 (140-440); Red Blood Count 3.78 M/mm3 (3.65-5.03); Red Cell Distribution Width 16.9 % (13.2-15.2); White Blood Count 7.2 K/mm3 (4.5-11.0)
[2016-08-14 05:48] LABS: Anion Gap 20 mmol/L; Blood Urea Nitrogen 48 mg/dL (7-17); Calcium 8.9 mg/dL (8.4-10.2); Carbon Dioxide 19 mmol/L (22-30); Chloride 107.3 mmol/L (98-107); Glucose 127 mg/dL (65-100); Potassium 4.4 mmol/L (3.6-5.0); Sodium 142 mmol/L (137-145)
--- NOTE | 2016-08-14 07:23 | XRay Report ---
CHEST XRAY, 2 VIEWS: History: Shortness of breath. Findings: There is mild cardiomegaly. Pulmonary vessels are borderline. The lungs are clear and fully expanded. No infiltrate, pleural effusion or pneumothorax. Normal thoracic cage. IMPRESSION: Cardiomegaly.
--- NOTE | 2016-08-14 07:51 | Emergency Department Report ---
HPI - General Chief Complaint: Dyspnea/Respdistress Time Seen by Provider: 08/14/16 07:44 - HPI HPI: Chief complaint: Shortness of breath and chest heaviness on exertion HPI: Patient is a 61-year-old female with a history of insulin-dependent diabetes, chronic renal insufficiency, hypertension who states yesterday around 1:00 he had some exertional shortness of breath and chest heaviness that lasted until she stopped to rest. Patient states she's had edema to her lower extremities for the last 2 months that would resolve when she elevated her feet but now is persistent for the last week to her feet. Patient was admitted to the hospital in June [place] echocardiogram showing ejection fraction of 50-55% . Patient states she's never had a cardiac workup. Mode of arrival: private car Source: Patient old chart Began: See above Duration: See above Context: See above Quality: Heaviness Severity: 3 out of 10 Improved with: Rest Worsened with: Exertion Associated signs and symptoms: Pedal edema ED Past Medical Hx - Past Medical History Previous Medical History?: Yes Hx Hypertension: Yes Hx Congestive Heart Failure: Yes Hx Diabetes: Yes Hx Renal Disease: Yes (Renal Insufficiency) Hx Kidney Stones: Yes (Early Kidney Failure) Additional medical history: Glaucoma - Surgical History Past Surgical History?: Yes Hx Cholecystectomy: Yes - Social History Smoking Status: Never Smoker Substance Use Type: Alcohol - Medications Home Medications: Home Medications Medication Instructions Recorded Confirmed Last Taken Type AtorvaSTATin [Lipitor] 20 mg PO DAILY 06/29/16 08/14/16 1 Day Ago History Carvedilol [Coreg] 25 mg PO BID 06/29/16 08/14/16 1 Day Ago History Hydrochlorothiazide [HCTZ] 25 mg PO QDAY 06/29/16 08/14/16 1 Day Ago History Insulin NPH/Regular [Novolin 70/30] 15 unit SQ QPM 06/29/16 08/14/16 1 Day Ago History Insulin NPH/Regular [Novolin 70/30] 15 unit SUB-Q QAM 06/29/16 08/14/16 1 Day Ago History Latanoprost 0.005% [Xalatan 0.005%] 1 drop OP QPM 06/29/16 08/14/16 1 Day Ago History amLODIPine [Norvasc] 10 mg PO DAILY 06/29/16 08/14/16 1 Day Ago History cloNIDine [Catapres] 0.1 mg PO BID 06/29/16 08/14/16 1 Day Ago History Aspirin [Aspirin BABY CHEW TAB] 81 mg PO QDAY 08/14/16 08/14/16 Unknown History Furosemide [Lasix] 20 mg PO QDAY PRN 08/14/16 08/14/16 Unknown History Triamcinolone 0.1% [Kenalog 0.1% 1 applic TP TID 08/14/16 08/14/16 Unknown History CREAM] ED Review of Systems ROS: Stated complaint: SOB/RT ARM PAIN Other details as noted in HPI ROS Constitutional: No fever ENT: No uri symptoms Cardiovascular: chest pain Respiratory: No cough GI: No nausea vomiting or diarrhea : No dysuria frequency or urgency, Skin: No rash Neuro: No focal weakness or numbness Psych: No depression Taco/lymph: edema Physical Exam - Physical Exam Vital Signs: Vital Signs 08/14/16 08/14/16 04:36 05:13 Temperature 98.5 F 97.9 F Pulse Rate 73 73 Respiratory 16 14 Rate Blood Pressure 152/77 158/75 [Right] O2 Sat by Pulse 96 97 Oximetry Physical Exam: GENERAL: The patient is an obese -[place] female in no acute distress. Pulse ox 97% while resting. HEENT: Normocephalic. Atraumatic. Extraocular motions are intact. Patient has moist mucous membranes. NECK: Supple. No meningitic signs are noted. There is no adenopathy noted. CHEST/LUNGS: Clear to auscultation. There is no respiratory distress noted. HEART/CARDIOVASCULAR: Regular. There is no tachycardia. ABDOMEN: Abdomen is soft, nontender. Patient has normal bowel sounds. There is no abdominal distention. SKIN: There is no rash. There is 1-2+ bilateral pedal edema right greater than left. There is no diaphoresis. NEURO: The patient is awake, alert, and oriented. The patient is cooperative. The patient has no focal neurologic deficits. The patient has normal speech. MUSCULOSKELETAL: There is no tenderness or deformity. There is no limitation range of motion. There is no evidence of acute injury. ED Course Vital Signs 08/14/16 08/14/16 04:36 05:13 Temperature 98.5 F 97.9 F Pulse Rate 73 73 Respiratory 16 14 Rate Blood Pressure 152/77 158/75 [Right] O2 Sat by Pulse 96 97 Oximetry - Reevaluation(s) Reevaluation #1: 08/14/16 08:07 As the patient has numerous cardiac risk factors and states she's never had a cardiac workup will admit her to the hospitalist for further evaluation. 08/14/16 08:08 Also will have a Doppler performed to rule out DVT. ED Medical Decision Making - Lab Data Result diagrams: 08/14/16 04:55 08/14/16 04:55 Laboratory Tests 08/14/16 04:55 Calcium 8.9 Troponin T < 0.010 Laboratory Tests 08/14/16 08/14/16 04:55 04:55 Glucose 127 H NT-Pro-B Natriuret Pep 2204 H - EKG Data -: EKG Interpreted by Me EKG shows normal: sinus rhythm Rate: normal (78) - EKG Data When compared to previous EKG there are: no significant change Interpretation: other (prolonged QT) - Radiology Data Radiology results: report reviewed (cardiomegaly) Critical care attestation.: If time is entered above; I have spent that time in minutes in the direct care of this critically ill patient, excluding procedure time. ED Disposition Clinical Impression: Chest pain Qualifiers: Chest pain type: unspecified Qualified Code(s): R07.9 - Chest pain, unspecified Disposition: DISCHARGED TO HOME OR SELFCARE Is pt being admited?: No Does the pt Need Aspirin: No Condition: Stable Instructions: Chest Pain (ED) Referrals: PRIMARY CARE, [Primary Care Provider] - 3-5 Days Time of Disposition: 08:07 (admit to the hospitalist)
[2016-08-14] MEDS ORDERED: ZOFRAN IV PRN (08:12)
[2016-08-14] MEDS ORDERED: SODIUM CHLORIDE FLUSH SYRINGE 10 ML IV PRN (08:12)
--- NOTE | 2016-08-14 08:23 | Admit Criteria Form ---
Admission Criteria Documentation: CARDIOLOGY GRG Clinical Indications for Admission to Inpatient Care ( Place 'X' for any and all applicable criteria): Hospital admission is needed for appropriate care of the patient because of ANY ONE of the following (1): [ ] I. Hemodynamic instability as indicated by ALL of the following (1)(2)(3) (4)(5) [ ]a) Vital signs or other findings not as expected for chronic patient condition or baseline [ ]b) Instability indicated by ANY ONE of the following: [ ]i) Hypotension [ ]ii) Symptomatic Tachycardia unresponsive to treatment ( e.g., analgesia, fluids, sedation as indicated) [ ]iii) Inadequate perfusion indicated by ANY ONE of the following: [ ] 1) Lactic acidosis (> 2 mmol/L) [ ] 2) New abnormal capillary refill (> 3 seconds) [ ] 3) Reduced urine output [ ] 4) New altered mental status [ ]iv) Orthostatic vital sign changes unresponsive to treatment (e.g., fluids) [ ]v) IV inotropic or vasopressor medication required to maintain adequate blood pressure or perfusion [ ] II. Severe heart failure as indicated by ANY ONE of the following(17)(18) [ ]a) Respiratory distress [ ]b) Hypotension [ ]c) Anasarca (refractory to outpatient therapy) [ ]d) Cardiac arrhythmias of immediate concern [ ]e) Myocardial ischemia [ ] III. Cardiac arrhythmias or findings of immediate concern indicated by ANY ONE of the following (19)(20): [ ] a) Heart rhythms that are inherently dangerous or unstable indicated by ANY ONE of the following (21)(22)(23): [ ] i) Resuscitated ventricular fibrillation or cardiac arrest [ ] ii) Ventricular escape rhythm [ ] iii) Sustained ventricular tachycardia (30 seconds or more of ventricular rhythm at greater than 100 beats per minute) [ ] iv) Nonsustained ventricular tachycardia and ANY ONE of the following: [ ] 1) Suspected cardiac ischemia as cause or consequence of ventricular tachycardia [ ] 2) In setting of acute myocarditis [ ] b) Unstable cardiac conduction defects indicated by ANY ONE of the following(23)(24)(25) [ ] i) Type II second-degree atrioventricular block [ ]ii) Third-degree atrioventricular block [ ]iii) New-onset left bundle branch block with suspected myocardial ischemia [ ]c) Any heart rhythm and ANY ONE of the following (21)(22)(26)(27) (28) [ ] i) Continuous long-term ECG monitoring needed (e.g., initiation of drug requiring monitoring for more than 24 hours) [ ] ii) Patient has automatic implanted cardioverter defibrillator that is repeatedly firing, malfunctioning, or in need of immediate adjustment of settings beyond the scope of ambulatory or observation care [ ]d) Heart rhythms of concern due to ANY ONE of the following: [ ] i) Hypotension [ ] ii) Respiratory distress [ ] iii) Association with other significant symptoms (e.g., bradycardia with syncope or ongoing dizziness, supraventricular tachycardia with chest pain (14)(15)(17) [ ] IV. Monitoring for cardiac contusion beyond the scope of observation care needed [A](30)(31)(32) [ ] V. Surgical or device complication (e.g., valve replacement complication , pacemaker dysfunction) (35)(41)(44)(45)(46) [ ] . Inpatient palliative care needed. [B](49) Also use Inpatient Palliative Care Criteria [ ] VII. Nonbacterial thrombotic (marantic) endocarditis (36)(43)(47)(48) [X ] VIII. Cardiology condition, symptom, or finding for which emergency and observation care has failed or are not considered appropriate. [ ] IX. Acute valvular disease requiring inpatient as indicated by ANY ONE of the following (41) [ ]a) Acute valvular regurgitation (42) [ ]b) Noninfectious valvulitis (43) [ ]c) Obstructive valve thrombosis [ ]d) Paravalvular leak [ ]e) Other significant valvular disorder remaining after emergency or observation level of care (as appropriate) [ ]X. Pericardial disease requiring inpatient treatment as indicated by ANY ONE of the following (33)(34)(35)(36)(37) [ ]a) Suspected tamponade (38)(39)(40) [ ]b) Hemopericardium [ ]c) Other significant pericardial disorder remaining after emergency or observation level of care (as appropriate) [ ] XI. Cardiac ischemia beyond scope of emergency and observation care. [ ] XII. Hypertension requiring inpatient treatment as indicated by ANY ONE of the following (6)(7)(8) [ ]a) SBP greater than 220 mm Hg or DBP greater than 120 mmHg despite treatment [ ]b) SBP greater than 140 mm Hg or DBP greater than 100 mm Hg with evidence of acute end organ damage as indicated by ANY ONE of the following [ ] i) Altered mental status [ ] ii) Acute renal failure as indicated by new onset of ANY ONE of the following (9)(10)(11)(12)(13) [ ]1) 3-fold rise in serum creatinine from baseline [ ]2) Serum creatinine greater than 4 mg/dL ( 354 micromoles/L) with acute rise greater than 0.5 mg/dL (44.2 micromoles/L) [ ]3) Reduction of more than 75% in estimated glomerular filtration rate from baseline [ ]4) Estimated glomerular filtration rate less than 35 mL/min/1.73m2 (0.59 mL/sec/1.73m2) in child up to 18 years of age [ ]5) Cessation of urine output indicated by ALL of the following [ ]A. Adequate volume status [ ]B. Inadequate urine output as indicated by ANY ONE of the following [ ]a. Urine output less than 0.3 mL/kg/hr for 24 hours [ ]b. Anuria (urine output less than 0.1 mL/kg/hr) for 12 hours [ ] iii) Aortic dissection [ ] iv) Myocardial Ischemia [ ] v) Left ventricular heart failure [ ]vi) Retinal Hemorrhage [ ]vii) Other significant finding [ ]c) Hypertension in child requiring inpatient treatment as indicated by ALL of the following(14)(15)(16) [ ] i) Outpatient treatment not effective, not available, or not appropriate [ ]ii) SBP or DBP greater than 95th percentile for age [ ]iii) Evidence of acute end organ damage as indicated by ANY ONE of the following [ ]1) Altered mental status [ ]2) Acute renal failure as indicated by new onset of ANY ONE of the following(9)(10)(11)(12)(13) [ ]A. 3-fold rise in serum creatinine from baseline [ ]B. Serum creatinine greater than 4 mg/dL (354 micromoles/L) with acute rise greater than 0.5 mg/dL (44.2 micromoles/L) [ ]C. Reduction of more than 75% in estimated glomerular filtration rate from baseline [ ]D. Estimated glomerular filtration rate less than 35 mL/min/1.73m2 (0.59 mL/sec/1.73m2) in child up to 18 years of age [ ]E. Cessation of urine output indicated by ALL of the following [ ]a. Adequate volume status [ ]b. Inadequate urine output as indicated by ANY ONE of the following [ ]i) Urine output less than 0.3 mL/kg/hr for 24 hours [ ]ii) Anuria ( urine output less than 0.1 mL/kg/hr) for 12 hours [ ]3) Severe headache [ ]4) Visual disturbance [ ]5) Retinal hemorrhage [ ]6) Other significant finding [ ]XIII. Complications of transplanted heart indicated by ANY ONE of the following(61): [ ]a) Acute graft rejection requiring inpatient management (eg, intravenous immunosuppression)(62)(63) [ ]b) Acute graft heart failure indicated by ANY ONE of the following(64): [ ]i) Hemodynamic instability [ ]ii) Cardiac arrhythmias of immediate concern [ ]iii) Pulmonary edema that is very severe (eg, mechanical ventilation needed, imminent or likely, need for 100% oxygen to keep oxygen saturation above 90%) [ ]iv) Pulmonary edema that is persistent as indicated by ALL of the following: [ ]1) New need for oxygen therapy to keep oxygen saturation above 90% (or increased FiO2 need from baseline) [ ]2) Has not improved sufficiently with emergency department or observation care IV diuretics or other heart failure treatments[E] [ ]v) Altered mental status that is severe or persistent [ ]vi) Increased creatinine (new on laboratory test) with reduction of more than 50% in estimated glomerular filtration rate from baseline [ ]vii) Progressively (ongoing) rising creatinine (known from past laboratory test) with reduction of more than 25% in estimated glomerular filtration rate from baseline [ ]viii) Acute renal failure [ ]ix) Acute peripheral ischemia (eg, examination shows pulseless, cool, mottled, or cyanotic extremity) [ ]x) Pulmonary artery catheter monitoring needed [ ]xi) Other sign or symptom of heart failure requiring inpatient treatment (ie, too severe or not responsive to outpatient and observation care treatment) [ ]c) Infection requiring inpatient management (eg, Hemodynamic instability, need for intravenous antimicrobial treatment)(66)(67)(68)(69)(70) [ ]d) Cardiac allograft vasculopathy requiring inpatient management ( eg evidence of cardiac ischemia)(71) [ ]e) Other complication of transplanted heart (eg, stroke, severe pulmonary hypertension, severe valvular dysfunction) requiring inpatient management(72) The original [facility] [employer] content created by [facility] has been revised. The portions of the content which have been revised are identified through the use of italic text or in bold, and [facility] has neither reviewed nor approved the modified material. All other unmodified content is copyright [facility] [employer]. Please see references footnoted in the original [facility] [employer] edition 2016 Admission Criteria Met: Yes
[2016-08-14 08:46] LABS: Creatine Kinase 131 units/L (30-135)
[2016-08-14] MEDS ORDERED: D50W (25GM) IV PRN (10:00)
[2016-08-14] MEDS ORDERED: TYLENOL PO PRN (10:00)
[2016-08-14] MEDS ORDERED: LASIX PO PRN (10:00)
[2016-08-14] MEDS ORDERED: REGLAN IV PRN (10:00)
[2016-08-14] MEDS ORDERED: DULCOLAX PR PRN (10:00)
[2016-08-14] MEDS ORDERED: MORPHINE IV PRN (10:00)
[2016-08-14] MEDS: CATAPRES PO SCH ×2 (10:30→21:51)
[2016-08-14] MEDS: NORVASC PO SCH (10:30)
[2016-08-14] MEDS: HCTZ PO SCH (11:02)
[2016-08-14] MEDS: COREG PO SCH ×2 (11:02→21:55)
[2016-08-14] MEDS: NOVOLOG SUB-Q SCH ×3 (11:03→22:24)
[2016-08-14] MEDS ORDERED: LEXISCAN IV ONE ×2 (11:47→11:51)
[2016-08-14 13:57] LABS: Creatine Kinase MB 2.3 ng/mL (0.0-4.0)
[2016-08-14 13:59] LABS: Creatine Kinase 135 units/L (30-135)
--- NOTE | 2016-08-14 14:01 | Treadmill Report ---
INDICATION FOR PROCEDURE: Shortness of breath. ORDERING PHYSICIAN: Michael Salcedo MD FINDINGS: There is no scintigraphic evidence of myocardial ischemia. The left ventricle is normal in size. Normal wall motion and wall thickening is noted on gated imaging. Left ventricular ejection fraction is measured at 66%. CONCLUSION: 1. No scintigraphic evidence of myocardial ischemia. 2. Normal left ventricular size and systolic function. 3. This is a low risk myocardial perfusion scan associated with 1 year cardiovascular mortality of less than 1%. JOB# [id number] BERTA/BRYON
--- NOTE | 2016-08-14 15:51 | History and Physical Report ---
History of Present Illness Date of examination: 08/14/16 Date of admission: 08/14/16 08:09 Chief complaint: Shortness of breath with chest tightness History of present illness: Patient is a 61-year-old female with a history of insulin-dependent diabetes, chronic renal insufficiency, hypertension, congestive heart failure with some sort of eye condition limited her vision ability she is unsure if his glaucoma cataract who presents to the hospital with complaining off worsening shortness of breath and chest heaviness which she describes as tightness" 8/10 in intensity with no alleviating or aggravating factors. She reports that she is monitoring her diet carefully reducing salt intake. But has been having some exertional shortness of breath and chest tightness. She also reports worsening bilateral lower extremity edema but it's greater than left. She denies any fever, nausea, vomiting, diarrhea she denies any recent sick contacts he denies any melena or bright red blood per rectum. She denies any chills. ROS Constitutional: No fever, fatigue or weight loss. Skin: No rash. Eyes: No recent vision problems or eye pain. ENT: No congestion, ear pain, or sore throat. Endocrine: No thyroid problems. Cardiovascular: reports chest tightness Respiratory: Shortness of breath with nonspecific cough or wheezing Gastrointestinal: No abdominal pain, nausea, vomiting, or diarrhea. Genitourinary: No dysuria. Musculoskeletal: No joint swelling. Neurologic: No seizures. Hematologic: No unusual bruising or bleeding. Psychiatric: No psychiatric problems, hallucinations or depression. All other systems reviewed and otherwise negative. Past History Past Medical History: CAD, diabetes, heart failure, hypertension Past Surgical History: cholecystectomy Social history: lives with family, full code. denies: smoking, alcohol abuse, prescription drug abuse, IV drug use Family history: no significant family history Medications and Allergies Allergies Allergy/AdvReac Type Severity Reaction Status Date / Time No Known Allergies Allergy Unverified 06/29/16 09:31 Home Medications Medication Instructions Recorded Confirmed Last Taken Type AtorvaSTATin [Lipitor] 20 mg PO DAILY 06/29/16 08/14/16 1 Day Ago History Carvedilol [Coreg] 25 mg PO BID 06/29/16 08/14/16 1 Day Ago History Hydrochlorothiazide [HCTZ] 25 mg PO QDAY 06/29/16 08/14/16 1 Day Ago History Insulin NPH/Regular [Novolin 70/30] 15 unit SQ QPM 06/29/16 08/14/16 1 Day Ago History Insulin NPH/Regular [Novolin 70/30] 15 unit SUB-Q QAM 06/29/16 08/14/16 1 Day Ago History Latanoprost 0.005% [Xalatan 0.005%] 1 drop OP QPM 06/29/16 08/14/16 1 Day Ago History amLODIPine [Norvasc] 10 mg PO DAILY 06/29/16 08/14/16 1 Day Ago History cloNIDine [Catapres] 0.1 mg PO BID 06/29/16 08/14/16 1 Day Ago History Aspirin [Aspirin BABY CHEW TAB] 81 mg PO QDAY 08/14/16 08/14/16 Unknown History Furosemide [Lasix] 20 mg PO QDAY PRN 08/14/16 08/14/16 Unknown History Triamcinolone 0.1% [Kenalog 0.1% 1 applic TP TID 08/14/16 08/14/16 Unknown History CREAM] Active Meds: Active Medications Acetaminophen (Tylenol) 650 mg PO Q4H PRN PRN Reason: Pain MILD(1-3)/Fever >100.5/HENRY Amlodipine Besylate (Norvasc) 10 mg PO DAILY [facility] Last Admin: 08/14/16 10:30 Dose: Not Given Aspirin (Baby Aspirin) 81 mg PO QDAY [facility] Atorvastatin Calcium (Lipitor) 20 mg PO DAILY [facility] Last Admin: 08/14/16 11:02 Dose: Not Given Bisacodyl (Dulcolax) 10 mg [place] QDAY PRN PRN Reason: Constipation unrelieved by MOM Carvedilol (Coreg) 25 mg PO BID [facility] Last Admin: 08/14/16 11:02 Dose: Not Given Clonidine HCl (Catapres) 0.1 mg PO BID [facility] Last Admin: 08/14/16 10:30 Dose: 0.1 mg Dextrose (D50w (25gm)) 50 ml IV PRN PRN PRN Reason: Hypoglycemia Furosemide (Lasix) 20 mg PO QDAY PRN PRN Reason: Swelling Hydrochlorothiazide (Hctz) 25 mg PO QDAY [facility] Last Admin: 08/14/16 11:02 Dose: Not Given Insulin Aspart (Novolog) 0 units SUB-Q [facility] PRN Reason: Protocol Last Admin: 08/14/16 11:03 Dose: Not Given Insulin Human Isoph/Insulin Regular (Novolin 70/30) 15 unit SUB-Q QAMDIAB TARSHA Last Admin: 08/14/16 10:30 Dose: Not Given Insulin Human Isoph/Insulin Regular (Novolin 70/30) 15 unit SUB-Q QPMDIAB TARSHA Latanoprost (Xalatan 0.005%) 1 drops OD QPM TARSHA Metoclopramide HCl (Reglan) 10 mg IV Q6H PRN PRN Reason: Nausea And Vomiting Last Admin: 08/14/16 10:30 Dose: 10 mg Morphine Sulfate (Morphine) 2 mg IV Q5MIN PRN PRN Reason: Chest Pain Ondansetron HCl (Zofran) 4 mg IV Q8H PRN PRN Reason: N/V unrelieved by Reglan Sodium Chloride (Sodium Chloride Flush Syringe 10 Ml) 10 ml IV PRN PRN PRN Reason: LINE FLUSH Triamcinolone Acetonide (Kenalog) 1 applic TP TID [facility] Exam - Physical Exam Narrative exam: VITAL SIGNS: Reviewed. GENERAL: The patient appeared well nourished and normally developed. Vital signs as documented. HEAD: No signs of head trauma. EYES: Pupils are equal. Extraocular motions intact. EARS: Hearing grossly intact. MOUTH: Oropharynx is normal. NECK: No adenopathy, no JVD. CHEST: Chest with crackles at the bases bilaterally. No wheezes, rales, or rhonchi. CARDIAC: Regular rate and rhythm. S1 and S2, without murmurs, gallops, or rubs. VASCULAR: 1+ pitting Edema. Peripheral pulses normal and equal in all extremities. ABDOMEN: Soft, without detectable tenderness. No sign of distention. No rebound or guarding, and no masses palpated. Bowel Sounds normal. MUSCULOSKELETAL: Good range of motion of all major joints. Extremities without clubbing, cyanosis. 1+pitting edema. NEUROLOGIC EXAM: Alert and oriented x 3. No focal sensory or strength deficits. Speech normal. Follows commands. PSYCHIATRIC: Mood normal. SKIN: No rash or lesions. - Constitutional Vitals: Temp Pulse Resp BP Pulse Ox 97.9 F 102 H 16 150/62 93 08/14/16 05:13 08/14/16 12:18 08/14/16 09:32 08/14/16 12:18 08/14/16 09:32 Results - Labs CBC & Chem 7: 08/14/16 04:55 08/14/16 04:55 Labs: Laboratory Last Values WBC 7.2 K/mm3 (4.5-11.0) 08/14/16 04:55 RBC 3.78 M/mm3 (3.65-5.03) 08/14/16 04:55 Hgb 10.4 gm/dl (10.1-14.3) 08/14/16 04:55 Hct 32.8 % (30.3-42.9) 08/14/16 04:55 MCV 87 fl (79-97) 08/14/16 04:55 MCH 27 pg (28-32) L 08/14/16 04:55 MCHC 32 % (30-34) 08/14/16 04:55 RDW 16.9 % (13.2-15.2) H 08/14/16 04:55 Plt Count 227 K/mm3 (140-440) 08/14/16 04:55 Lymph % (Auto) 14.8 % (13.4-35.0) 08/14/16 04:55 Kay % (Auto) 7.3 % (0.0-7.3) 08/14/16 04:55 Eos % (Auto) 2.6 % (0.0-4.3) 08/14/16 04:55 Baso % (Auto) 0.5 % (0.0-1.8) 08/14/16 04:55 Lymph # 1.1 K/mm3 (1.2-5.4) L 08/14/16 04:55 Kay # 0.5 K/mm3 (0.0-0.8) 08/14/16 04:55 Eos # 0.2 K/mm3 (0.0-0.4) 08/14/16 04:55 Baso # 0.0 K/mm3 (0.0-0.1) 08/14/16 04:55 Seg Neutrophils % 74.8 % (40.0-70.0) H 08/14/16 04:55 Seg Neutrophils # 5.4 K/mm3 (1.8-7.7) 08/14/16 04:55 Sodium 142 mmol/L (137-145) 08/14/16 04:55 Potassium 4.4 mmol/L (3.6-5.0) 08/14/16 04:55 Chloride 107.3 mmol/L (98-107) H 08/14/16 04:55 Carbon Dioxide 19 mmol/L (22-30) L 08/14/16 04:55 Anion Gap 20 mmol/L 08/14/16 04:55 BUN 48 mg/dL (7-17) H 08/14/16 04:55 Creatinine 3.2 mg/dL (0.7-1.2) H 08/14/16 04:55 Estimated GFR 18 ml/min 08/14/16 04:55 BUN/Creatinine Ratio 15.00 % 08/14/16 04:55 Glucose 127 mg/dL (65-100) H 08/14/16 04:55 POC Glucose 139 (70-105) H 08/14/16 13:53 Calcium 8.9 mg/dL (8.4-10.2) 08/14/16 04:55 Total Creatine Kinase 135 units/L (30-135) 08/14/16 13:16 CK-MB (CK-2) 2.3 ng/mL (0.0-4.0) 08/14/16 13:16 CK-MB (CK-2) Rel Index 1.7 (0-4) 08/14/16 13:16 Troponin T < 0.010 ng/mL (0.00-0.029) 08/14/16 13:16 NT-Pro-B Natriuret Pep 2204 pg/mL (0-900) H 08/14/16 04:55 - Imaging and Cardiology EKG: image reviewed (normal sinus rhythm) Chest x-ray: image reviewed (mild congestion) Assessment and Plan Assessment and plan: Patient is a 61-year-old female with a history of insulin-dependent diabetes, chronic renal insufficiency, hypertension, congestive heart failure with some sort of eye condition limited her vision ability she is unsure if his glaucoma cataract who presents to the hospital with complaining off worsening shortness of breath and chest heaviness which she describes as tightness" 8/10 in intensity with no alleviating or aggravating factors. She reports that she is monitoring her diet carefully reducing salt intake. But has been having some exertional shortness of breath and chest tightness. She also reports worsening bilateral lower extremity edema but it's greater than left. She denies any fever, nausea, vomiting, diarrhea she denies any recent sick contacts he denies any melena or bright red blood per rectum. She denies any chills. ' * Acute on chronic diastolic congestive heart failure * Angina * Acute on chronic kidney disease-present on admission * Metabolic acidosis likely secondary to renal dysfunction * Diabetes mellitus * Hypertension Plan * Admitted to telemetry * Neurologic consult, stress test planned for today * Trend cardiac Enzymes * Strict ins and outs and daily weights, diabetic diet * Restart home medications including Lasix * DVT and GI prophylaxis * Plan of care discussed with the patient in detail * Obtain nephrology consultation Advance Directives: Yes Plan of care discussed with patient/family: Yes
[2016-08-14 16:05] LABS: Creatine Kinase 122 units/L (30-135)
--- NOTE | 2016-08-14 16:10 | Vascular Lab Report ---
LOWER EXTREMITY VENOUS DUPLEX: REASON FOR EXAM: Bilateral edema. COMMENTS ON THE RIGHT: All veins visualized are freely compressible without evidence of internal echogenicity. Flow is spontaneous and phasic throughout. COMMENTS ON THE LEFT: All veins visualized are freely compressible without evidence of internal echogenicity. Flow is spontaneous and phasic throughout. IMPRESSION: No evidence of acute or chronic deep venous thrombosis in either lower extremity.
[2016-08-14] MEDS: KENALOG TP SCH (19:01)
[2016-08-14] MEDS: XALATAN 0.005% OD SCH (19:02)
[2016-08-15] MEDS: KENALOG TP SCH ×4 (00:30→23:07)
[2016-08-15 07:00] LABS: Basophils % (Auto) 0.2 % (0.0-1.8); Eosinophils % (Auto) 2.1 % (0.0-4.3); Hematocrit 27.9 % (30.3-42.9); Hemoglobin 8.7 gm/dl (10.1-14.3); Mean Corpuscular HGB Conc 31 % (30-34); Mean Corpuscular Hemoglobin 28 pg (28-32); Mean Corpuscular Volume 88 fl (79-97); Platelet Count 192 K/mm3 (140-440); Red Blood Count 3.16 M/mm3 (3.65-5.03); Red Cell Distribution Width 16.5 % (13.2-15.2)
[2016-08-15 07:20] LABS: BUN/Creatinine Ratio 15.48; Calcium 8.3 mg/dL (8.4-10.2); Chloride 112.6 mmol/L (98-107); Potassium 4.3 mmol/L (3.6-5.0)
--- NOTE | 2016-08-15 09:22 | Consultation ---
History of Present Illness - Reason for Consult Consult date: 08/15/16 chronic renal failure - History of Present Illness Mrs. Fletcher is a 61yo with stage IV chronic kidney disease who presented to the ED with SOB. She reports that she was in usual state of health until 2 weeks ago when she developed lower extremity edema. She was started on Lasix by her PCP. However, she reports that one week later, swelling had not improved. Recently, she began experiencing SOB with exertion. She denies chest pain, palpitations. Of note, she was prescribed oxygen in the past but does not use it. She believes that she was followed by a drapery counselor when she was insured by [employer]. Past History Past Medical History: CAD, diabetes, heart failure, hypertension Past Surgical History: cholecystectomy Social history: lives with family, full code. denies: smoking, alcohol abuse, prescription drug abuse, IV drug use Family history: no significant family history Medications and Allergies Allergies Allergy/AdvReac Type Severity Reaction Status Date / Time No Known Allergies Allergy Unverified 06/29/16 09:31 Home Medications Medication Instructions Recorded Confirmed Last Taken Type AtorvaSTATin [Lipitor] 20 mg PO DAILY 06/29/16 08/14/16 1 Day Ago History Carvedilol [Coreg] 25 mg PO BID 06/29/16 08/14/16 1 Day Ago History Hydrochlorothiazide [HCTZ] 25 mg PO QDAY 06/29/16 08/14/16 1 Day Ago History Insulin NPH/Regular [Novolin 70/30] 15 unit SQ QPM 06/29/16 08/14/16 1 Day Ago History Insulin NPH/Regular [Novolin 70/30] 15 unit SUB-Q QAM 06/29/16 08/14/16 1 Day Ago History Latanoprost 0.005% [Xalatan 0.005%] 1 drop OP QPM 06/29/16 08/14/16 1 Day Ago History amLODIPine [Norvasc] 10 mg PO DAILY 06/29/16 08/14/16 1 Day Ago History cloNIDine [Catapres] 0.1 mg PO BID 06/29/16 08/14/16 1 Day Ago History Aspirin [Aspirin BABY CHEW TAB] 81 mg PO QDAY 08/14/16 08/14/16 Unknown History Furosemide [Lasix] 20 mg PO QDAY PRN 08/14/16 08/14/16 Unknown History Triamcinolone 0.1% [Kenalog 0.1% 1 applic TP TID 08/14/16 08/14/16 Unknown History CREAM] Active Meds: Active Medications Acetaminophen (Tylenol) 650 mg PO Q4H PRN PRN Reason: Pain MILD(1-3)/Fever >100.5/HENRY Amlodipine Besylate (Norvasc) 10 mg PO DAILY [facility] Last Admin: 08/14/16 10:30 Dose: Not Given Aspirin (Baby Aspirin) 81 mg PO QDAY [facility] Atorvastatin Calcium (Lipitor) 20 mg PO DAILY [facility] Last Admin: 08/14/16 11:02 Dose: Not Given Bisacodyl (Dulcolax) 10 mg [place] QDAY PRN PRN Reason: Constipation unrelieved by MOM Carvedilol (Coreg) 25 mg PO BID [facility] Last Admin: 08/14/16 21:55 Dose: 25 mg Clonidine HCl (Catapres) 0.1 mg PO BID [facility] Last Admin: 08/14/16 21:51 Dose: 0.1 mg Dextrose (D50w (25gm)) 50 ml IV PRN PRN PRN Reason: Hypoglycemia Furosemide (Lasix) 20 mg PO QDAY PRN PRN Reason: Swelling Hydrochlorothiazide (Hctz) 25 mg PO QDAY [facility] Last Admin: 08/14/16 11:02 Dose: Not Given Influenza Virus Vaccine Quadrival (Fluarix Quad [id number](36 Mos+)) 60 mcg IM .ONCE ONE Stop: 08/15/16 12:01 Insulin Aspart (Novolog) 0 units SUB-Q ACHS [facility] PRN Reason: Protocol Last Admin: 08/14/16 22:24 Dose: 1 units Insulin Human Isoph/Insulin Regular (Novolin 70/30) 15 unit SUB-Q QAMDIAB [facility] Last Admin: 08/14/16 10:30 Dose: Not Given Insulin Human Isoph/Insulin Regular (Novolin 70/30) 15 unit SUB-Q QPMDIAB [facility] Last Admin: 08/14/16 19:02 Dose: Not Given Latanoprost (Xalatan 0.005%) 1 drops OD QPM [facility] Last Admin: 08/14/16 19:02 Dose: Not Given Metoclopramide HCl (Reglan) 10 mg IV Q6H PRN PRN Reason: Nausea And Vomiting Last Admin: 08/14/16 10:30 Dose: 10 mg Morphine Sulfate (Morphine) 2 mg IV Q5MIN PRN PRN Reason: Chest Pain Ondansetron HCl (Zofran) 4 mg IV Q8H PRN PRN Reason: N/V unrelieved by Reglan Pneumococcal Polyvalent Vaccine (Pneumovax 23) 0.5 ml IM .ONCE ONE Stop: 08/15/16 12:01 Sodium Chloride (Sodium Chloride Flush Syringe 10 Ml) 10 ml IV PRN PRN PRN Reason: LINE FLUSH Triamcinolone Acetonide (Kenalog) 1 applic TP TID [facility] Last Admin: 08/15/16 00:30 Dose: Not Given Review of Systems Constitutional: no fever, no chills, no sweats Cardiovascular: edema, shortness of breath, dyspnea on exertion, no chest pain Respiratory: cough, dyspnea on exertion Gastrointestinal: no abdominal pain, no nausea, no vomiting, no diarrhea, no constipation, no BRBPR, no melena Genitourinary Female: no dysuria Integumentary: no rash, no pruritis Neurological: no weakness Exam - Vital Signs Vital signs: Vital Signs Temp Pulse Resp BP Pulse Ox 98.5 F 73 16 152/77 96 08/14/16 04:36 08/14/16 04:36 08/14/16 04:36 08/14/16 04:36 08/14/16 04:36 - General Appearance General appearance: well-developed, well-nourished EENT: ATNC Respiratory: Other (dry inspiratory crackles) Heart: regular Gastrointestinal: Present: normal. Absent: tenderness, distended Integumentary: no rash, warm and dry Neurologic: no focal deficit, alert and oriented x3 Musculoskeletal: Present: other (trace edema) Psychiatric: mood/affect appropriate, cooperative Results - Lab Results 08/15/16 06:18 08/15/16 06:18 Most recent lab results Calcium 8.3 mg/dL (8.4-10.2) L 08/15/16 06:18 Assessment and Plan Impression: * Stage IV chronic kidney disease --SCr 3.4mg/dL in Jun 2016 * Chest pain --Stress test: no ischemia; nml LVEF * Dypsnea --CXR: no pulmonary edema --LE doppler: no LE DVT * Hypertension * Type II DM Plan: * Renal function is at baseline * Diuresis prn * Cardiology recommendations reviewed * Note CXR at admission without edema - consider V/Q scan * Continue anitHTN medications * Will ask pulmonary to see * Strict I/O * Avoid potential nephrotoxins * Dose medications for renal function
[2016-08-15] MEDS ORDERED: PNEUMOVAX 23 IM ONE (12:00)
[2016-08-15] MEDS ORDERED: FLUARIX QUAD 2016-2017(36 MOS+) IM ONE (12:00)
--- NOTE | 2016-08-15 12:05 | Consultation ---
History of Present Illness Consult date: 08/15/16 Consult reason: chest pain History of present illness: This is a 61yr old woman with a history of hypertension, diabetes, chronic renal failure who presented to this hospital with complaints of shortness of breath and left shoulder pain. Patient also complained of intermittent lower extremity edema. Chest x-ray reports mild cardiomegaly. No acute cardiopulmonary process. Cardiac consultation requested for evaluation of chest pain. Patient denies any chest pain. Her presenting ECG shows normal sinus rhythm. An echocardiogram done 2 months ago reports a normal LV systolic function, ejection fraction 55%. She had a normal persantine thallium stress yesterday. Past History Past Medical History: CAD, diabetes, heart failure, hypertension Past Surgical History: cholecystectomy Social history: lives with family, full code. denies: smoking, alcohol abuse, prescription drug abuse, IV drug use Family history: no significant family history Medications and Allergies Allergies Allergy/AdvReac Type Severity Reaction Status Date / Time No Known Allergies Allergy Unverified 06/29/16 09:31 Home Medications Medication Instructions Recorded Confirmed Last Taken Type AtorvaSTATin [Lipitor] 20 mg PO DAILY 06/29/16 08/14/16 1 Day Ago History Carvedilol [Coreg] 25 mg PO BID 06/29/16 08/14/16 1 Day Ago History Hydrochlorothiazide [HCTZ] 25 mg PO QDAY 06/29/16 08/14/16 1 Day Ago History Insulin NPH/Regular [Novolin 70/30] 15 unit SQ QPM 06/29/16 08/14/16 1 Day Ago History Insulin NPH/Regular [Novolin 70/30] 15 unit SUB-Q QAM 06/29/16 08/14/16 1 Day Ago History Latanoprost 0.005% [Xalatan 0.005%] 1 drop OP QPM 06/29/16 08/14/16 1 Day Ago History amLODIPine [Norvasc] 10 mg PO DAILY 06/29/16 08/14/16 1 Day Ago History cloNIDine [Catapres] 0.1 mg PO BID 06/29/16 08/14/16 1 Day Ago History Aspirin [Aspirin BABY CHEW TAB] 81 mg PO QDAY 08/14/16 08/14/16 Unknown History Furosemide [Lasix] 20 mg PO QDAY PRN 08/14/16 08/14/16 Unknown History Triamcinolone 0.1% [Kenalog 0.1% 1 applic TP TID 08/14/16 08/14/16 Unknown History CREAM] Active Meds: Active Medications Acetaminophen (Tylenol) 650 mg PO Q4H PRN PRN Reason: Pain MILD(1-3)/Fever >100.5/[facility]ENRY Amlodipine Besylate (Norvasc) 10 mg PO DAILY [facility] Last Admin: 08/14/16 10:30 Dose: Not Given Aspirin (Baby Aspirin) 81 mg PO QDAY [facility] Atorvastatin Calcium (Lipitor) 20 mg PO DAILY [facility] Last Admin: 08/14/16 11:02 Dose: Not Given Bisacodyl (Dulcolax) 10 mg [place] QDAY PRN PRN Reason: Constipation unrelieved by MOM Carvedilol (Coreg) 25 mg PO BID [facility] Last Admin: 08/14/16 21:55 Dose: 25 mg Clonidine HCl (Catapres) 0.1 mg PO BID [facility] Last Admin: 08/14/16 21:51 Dose: 0.1 mg Dextrose (D50w (25gm)) 50 ml IV PRN PRN PRN Reason: Hypoglycemia Furosemide (Lasix) 20 mg PO QDAY PRN PRN Reason: Swelling Hydrochlorothiazide (Hctz) 25 mg PO QDAY [facility] Last Admin: 08/14/16 11:02 Dose: Not Given Insulin Aspart (Novolog) 0 units SUB-Q ACHS [facility] PRN Reason: Protocol Last Admin: 08/14/16 22:24 Dose: 1 units Insulin Human Isoph/Insulin Regular (Novolin 70/30) 15 unit SUB-Q QAMDIAB [facility] Last Admin: 08/14/16 10:30 Dose: Not Given Insulin Human Isoph/Insulin Regular (Novolin 70/30) 15 unit SUB-Q QPMDIAB [facility] Last Admin: 08/14/16 19:02 Dose: Not Given Latanoprost (Xalatan 0.005%) 1 drops OD QPM [facility] Last Admin: 08/14/16 19:02 Dose: Not Given Metoclopramide HCl (Reglan) 10 mg IV Q6H PRN PRN Reason: Nausea And Vomiting Last Admin: 08/14/16 10:30 Dose: 10 mg Morphine Sulfate (Morphine) 2 mg IV Q5MIN PRN PRN Reason: Chest Pain Ondansetron HCl (Zofran) 4 mg IV Q8H PRN PRN Reason: N/V unrelieved by Reglan Sodium Chloride (Sodium Chloride Flush Syringe 10 Ml) 10 ml IV PRN PRN PRN Reason: LINE FLUSH Triamcinolone Acetonide (Kenalog) 1 applic TP TID [facility] Last Admin: 08/15/16 00:30 Dose: Not Given Physical Examination Vital Signs Temp Pulse Resp BP Pulse Ox 98.5 F 73 16 152/77 96 08/14/16 04:36 08/14/16 04:36 08/14/16 04:36 08/14/16 04:36 08/14/16 04:36 General appearance: no acute distress HEENT: Positive: PERRL Neck: Positive: trachea midline Cardiac: Positive: Reg Rate and Rhythm Lungs: Positive: Decreased Breath Sounds Neuro: Positive: Grossly Intact Extremities: Absent: edema Results 08/15/16 06:18 08/15/16 06:18 Cardiac Enzymes 08/14/16 08/14/16 Range/Units 13:16 15:20 CK-MB (CK-2) 2.3 2.0 (0.0-4.0) ng/mL CBC 08/15/16 Range/Units 06:18 WBC 7.0 (4.5-11.0) K/mm3 RBC 3.16 L (3.65-5.03) M/mm3 Hgb 8.7 L (10.1-14.3) gm/dl Hct 27.9 L (30.3-42.9) % Plt Count 192 (140-440) K/mm3 Lymph # 1.3 (1.2-5.4) K/mm3 Desha # 0.7 (0.0-0.8) K/mm3 Eos # 0.1 (0.0-0.4) K/mm3 Baso # 0.0 (0.0-0.1) K/mm3 Comprehensive Metabolic Panel 08/15/16 Range/Units 06:18 Sodium 146 H (137-145) mmol/L Potassium 4.3 (3.6-5.0) mmol/L Chloride 112.6 H (98-107) mmol/L Carbon Dioxide 18 L (22-30) mmol/L BUN 48 H (7-17) mg/dL Creatinine 3.1 H (0.7-1.2) mg/dL Glucose 132 H (65-100) mg/dL Calcium 8.3 L (8.4-10.2) mg/dL Assessment and Plan Left shoulder pain Shortness of breath -resolved Chronic renal failure Hypertension Diabetes No ischemia on persantine stress thallium done this admission. EF 55% on echo 06/2016. No further cardiac workup indicated.
[2016-08-15] MEDS: CATAPRES PO SCH ×2 (12:15→23:08)
[2016-08-15] MEDS: HCTZ PO SCH (12:15)
[2016-08-15] MEDS: COREG PO SCH ×2 (12:15→23:08)
[2016-08-15] MEDS: BABY ASPIRIN PO SCH (12:15)
[2016-08-15] MEDS: NORVASC PO SCH (12:15)
[2016-08-15] MEDS: NOVOLOG SUB-Q SCH ×2 (12:16→17:51)
[2016-08-15] MEDS: XALATAN 0.005% OD SCH (17:56)
--- NOTE | 2016-08-15 22:26 | Progress Note ---
Assessment and Plan 1. Acute on chronic diastolic congestive heart failure: Continue with blood pressure control and gradual diuresis 2. Angina: Has negative Lexiscan studies today. 3. Acute on chronic kidney disease-present on admission: Avoid nephrotoxic medication. Address enough current meds. Nephrology following. Input appreciated. 4. Metabolic acidosis likely secondary to renal dysfunction 5. Diabetes mellitus: Sliding scale insulin. Consistent collided diet 6. Hypertension: Optimize with oral anti-hypertensives 7. DVT and GI prophylaxis Subjective Date of service: 08/15/16 Principal diagnosis: shortness of breath Interval history: Chest pain improved Objective - Constitutional Vitals: Vital Signs - 12hr 08/15/16 08/15/16 08/15/16 13:24 18:12 20:00 Temperature 97.8 F 97.4 F L 98.9 F Pulse Rate [ 81 From Monitor] Pulse Rate [ 84 84 Left Radial] Respiratory 18 18 21 Rate Blood Pressure 134/66 145/69 [Left Radial Artery] Blood Pressure 143/67 [Right Arm] O2 Sat by Pulse 95 91 94 Oximetry General appearance: Present: no acute distress, well-nourished - EENT Eyes: PERRL, EOM intact ENT: hearing intact, clear oral mucosa - Neck Neck: supple, normal ROM - Respiratory Respiratory effort: normal Respiratory: bilateral: CTA - Breasts Breasts: normal - Cardiovascular Rhythm: regular Heart Sounds: Present: S1 & S2. Absent: gallop, rub Extremities: pulses intact, No edema, normal color, Full ROM - Gastrointestinal General gastrointestinal: Present: soft, non-tender, non-distended, normal bowel sounds - Integumentary Integumentary: clear, warm, dry - Musculoskeletal Musculoskeletal: 1, strength equal bilaterally - Neurologic Neurologic: moves all extremities - Psychiatric Psychiatric: memory intact, appropriate mood/affect, intact judgment & insight - Labs CBC & Chem 7: 08/15/16 06:18 08/15/16 06:18 Labs: Abnormal lab results 08/14/16 08/15/16 08/15/16 Range/Units 22:22 06:18 06:18 RBC 3.16 L (3.65-5.03) M/mm3 Hgb 8.7 L (10.1-14.3) gm/dl Hct 27.9 L (30.3-42.9) % RDW 16.5 H (13.2-15.2) % [place] % (Auto) 10.5 H (0.0-7.3) % Sodium 146 H (137-145) mmol/L Chloride 112.6 H (98-107) mmol/L Carbon Dioxide 18 L (22-30) mmol/L BUN 48 H (7-17) mg/dL Creatinine 3.1 H (0.7-1.2) mg/dL Glucose 132 H (65-100) mg/dL POC Glucose 195 H (70-105) Calcium 8.3 L (8.4-10.2) mg/dL
[2016-08-16] MEDS: NOVOLOG SUB-Q SCH ×3 (00:04→11:58)
[2016-08-16 07:36] LABS: Basophils % (Auto) 0.3 % (0.0-1.8); Eosinophils % (Auto) 4.6 % (0.0-4.3); Hematocrit 26.8 % (30.3-42.9); Hemoglobin 8.5 gm/dl (10.1-14.3); Mean Corpuscular HGB Conc 32 % (30-34); Mean Corpuscular Hemoglobin 27 pg (28-32); Mean Corpuscular Volume 87 fl (79-97); Platelet Count 187 K/mm3 (140-440); Red Cell Distribution Width 16.4 % (13.2-15.2)
[2016-08-16 08:05] LABS: Albumin 3.2 g/dL (3.9-5); Albumin/Globulin Ratio 0.9 %; BUN/Creatinine Ratio 15.75; Bilirubin,Total 0.3 mg/dL (0.1-1.2); Calcium 8.3 mg/dL (8.4-10.2); Chloride 108.5 mmol/L (98-107); Potassium 4.1 mmol/L (3.6-5.0); Total Protein 6.9 g/dL (6.3-8.2)
[2016-08-16] MEDS: KENALOG TP SCH (09:09)
[2016-08-16] MEDS: CATAPRES PO SCH (10:05)
[2016-08-16] MEDS: BABY ASPIRIN PO SCH (10:06)
[2016-08-16] MEDS: COREG PO SCH (10:07)
[2016-08-16] MEDS: NORVASC PO SCH (10:07)
[2016-08-16] MEDS: HCTZ PO SCH (10:08)
--- NOTE | 2016-08-16 10:32 | Progress Note ---
Assessment and Plan Left shoulder pain Shortness of breath -resolved Chronic renal failure Hypertension Diabetes No ischemia on persantine stress thallium done this admission. EF 55% on echo 06/2016. Conservative cardiac management. Subjective Date of service: 08/16/16 Principal diagnosis: shortness of breath Interval history: Patient has no complaints. Wants to go home. Objective Vital Signs Temp Pulse Pulse Resp BP BP Pulse Ox 08/16/16 08:00 97.5 F L 71 18 134/63 99 08/16/16 05:49 98.7 F 75 20 134/64 96 08/16/16 00:00 97.4 F L 84 20 112/61 96 08/15/16 20:00 98.9 F 84 21 145/69 94 08/15/16 18:12 97.4 F L 81 18 134/66 91 08/15/16 13:24 97.8 F 84 18 143/67 95 - Physical Examination General: No Apparent Distress HEENT: Positive: PERRL Neck: Positive: trachea midline Cardiac: Positive: Reg Rate and Rhythm Lungs: Positive: Decreased Breath Sounds Neuro: Positive: Grossly Intact Extremities: Absent: edema - Labs and Meds Cardiac Enzymes 08/16/16 Range/Units 06:20 AST 10 (5-40) units/L CBC 08/16/16 Range/Units 06:20 WBC 6.0 (4.5-11.0) K/mm3 RBC 3.10 L (3.65-5.03) M/mm3 Hgb 8.5 L (10.1-14.3) gm/dl Hct 26.8 L (30.3-42.9) % Plt Count 187 (140-440) K/mm3 Lymph # 1.3 (1.2-5.4) K/mm3 Walker # 0.7 (0.0-0.8) K/mm3 Eos # 0.3 (0.0-0.4) K/mm3 Baso # 0.0 (0.0-0.1) K/mm3 Comprehensive Metabolic Panel 08/16/16 Range/Units 06:20 Sodium 142 (137-145) mmol/L Potassium 4.1 (3.6-5.0) mmol/L Chloride 108.5 H (98-107) mmol/L Carbon Dioxide 18 L (22-30) mmol/L BUN 52 H (7-17) mg/dL Creatinine 3.3 H (0.7-1.2) mg/dL Glucose 52 L (65-100) mg/dL Calcium 8.3 L (8.4-10.2) mg/dL AST 10 (5-40) units/L ALT 9 (7-56) units/L Alkaline Phosphatase 65 (35-129) units/L Total Protein 6.9 (6.3-8.2) g/dL Albumin 3.2 L (3.9-5) g/dL - Imaging and Cardiology EKG: image reviewed (normal sinus rhythm)
--- NOTE | 2016-08-16 11:50 | Discharge Summary ---
Providers - Providers Date of Admission: 08/14/16 08:09 Date of discharge: 08/16/16 Attending physician: GERALD JOE 08/14/16 Consult to Cardiac Rehabilitation [CONS] Routine Reason For Exam: Phase I 08/14/16 08:12 Consult to Physician [CONS] Routine Consulting Provider: RACHEL CLEMENT Reason For Exam: chest pain, chf Place consult to:: Dr. Clement Notified:: Adriane RN Phone number called:: Was contact made?: Yes If yes, spoke with:: [facility]ie[facility]answering service Time called:: 17:37 Consult to Physician [CONS] Routine Consulting Provider: EMILEE CUBA Reason For Exam: ckd Place consult to:: Dr. Cuba Notified:: Adriane RN Phone number called:: Was contact made?: Yes If yes, spoke with:: Nidhi-answering service Time called:: 17:54 08/15/16 17:24 Consult to Physician [CONS] Routine Consulting Provider: MARVA BRAN Reason For Exam: Dypsnea Place consult to:: notified of consult Notified:: DR PALMER BY Phone number called:: [phone] Was contact made?: Yes If yes, spoke with:: DR BRAN Time called:: 17:24 Comment:: MD to MD notification Primary care physician: SENIOR VICE PRESIDENT Hospitalization Condition: Stable Disposition: DISCHARGED TO HOME OR SELFCARE Core Measure Documentation - Palliative Care Palliative Care/ Comfort Measures: Not Applicable - Core Measures Any of the following diagnoses?: heart failure ( ) - Heart Failure Discharge Requirements Beta neal at discharge: Yes Exam - Constitutional Vitals: Temp Pulse Resp BP Pulse Ox 97.5 F L 71 18 134/63 99 08/16/16 08:00 08/16/16 10:07 08/16/16 08:00 08/16/16 10:07 08/16/16 08:00 General appearance: Present: no acute distress, well-nourished - EENT Eyes: Present: PERRL ENT: hearing intact, clear oral mucosa - Neck Neck: Present: supple, normal ROM - Respiratory Respiratory effort: normal Respiratory: bilateral: CTA - Cardiovascular Heart Sounds: Present: S1 & S2. Absent: rub, click - Extremities Extremities: pulses symmetrical, No edema Peripheral Pulses: within normal limits - Abdominal General gastrointestinal: Present: soft, non-tender, non-distended, normal bowel sounds Female genitourinary: Present: normal - Integumentary Integumentary: Present: clear, warm, dry - Musculoskeletal Musculoskeletal: gait normal, strength equal bilaterally - Psychiatric Psychiatric: appropriate mood/affect, intact judgment & insight - Neurologic Neurologic: CNII-XII intact, moves all extremities Plan Activity: advance as tolerated Diet: low fat, low cholesterol, low salt Special Instructions: record daily BP diary, record blood sugar diary Follow up with: PRIMARY CARE, [Primary Care Provider] - 3-5 Days Prescriptions: amLODIPine [Norvasc] 10 mg PO DAILY #30 tablet AtorvaSTATin [Lipitor] 20 mg PO DAILY #30 tablet Carvedilol [Coreg] 25 mg PO BID #60 tablet cloNIDine [Catapres] 0.1 mg PO BID #60 tablet Furosemide [Lasix TAB] 20 mg PO QDAY PRN #30 tablet PRN Reason: Swelling Hydrochlorothiazide [HCTZ] 25 mg PO QDAY #30 tablet Insulin NPH/Regular [NovoLIN 70/30] 15 unit SUB-Q QAM #100 units Insulin NPH/Regular [NovoLIN 70/30] 15 unit SQ QPM #100 units
[2016-08-16 13:00] VITALS: BP 135/65
--- NOTE | 2016-08-16 13:02 | Consultation ---
History of Present Illness Consult date: 08/16/16 Requesting physician: GERALD JOE Reason for consult: dyspnea History of present illness: 61 y/o obese female admitted with dyspnea and left arm pain. Had normal exercise stress test but no echo. Patient does snore and has daytime fatigue. She admits that she has been short of breath for the last 3 years but it has progressively gotten worse. Her CXR is clear but does show cardiomegaly. She is anxious to go home today and was told that I was the deciding factor. Past History Past Medical History: CAD, diabetes, heart failure, hypertension Past Surgical History: cholecystectomy Social history: lives with family, full code. denies: smoking, alcohol abuse, prescription drug abuse, IV drug use Family history: no significant family history Medications and Allergies Allergies Allergy/AdvReac Type Severity Reaction Status Date / Time No Known Allergies Allergy Unverified 06/29/16 09:31 Home Medications Medication Instructions Recorded Confirmed Last Taken Type Latanoprost 0.005% [Xalatan 0.005%] 1 drop OP QPM 06/29/16 08/14/16 1 Day Ago History Aspirin [Aspirin BABY CHEW TAB] 81 mg PO QDAY 08/14/16 08/14/16 Unknown History Triamcinolone 0.1% [Kenalog 0.1% 1 applic TP TID 08/14/16 08/14/16 Unknown History CREAM] AtorvaSTATin [Lipitor] 20 mg PO DAILY #30 tablet 08/16/16 Unknown Rx Carvedilol [Coreg] 25 mg PO BID #60 tablet 08/16/16 Unknown Rx Furosemide [Lasix TAB] 20 mg PO QDAY PRN #30 tablet 08/16/16 Unknown Rx Hydrochlorothiazide [HCTZ] 25 mg PO QDAY #30 tablet 08/16/16 Unknown Rx Insulin NPH/Regular [NovoLIN 70/30] 15 unit SQ QPM #100 units 08/16/16 Unknown Rx Insulin NPH/Regular [NovoLIN 70/30] 15 unit SUB-Q QAM #100 units 08/16/16 Unknown Rx amLODIPine [Norvasc] 10 mg PO DAILY #30 tablet 08/16/16 Unknown Rx cloNIDine [Catapres] 0.1 mg PO BID #60 tablet 08/16/16 Unknown Rx Active Meds: Active Medications Acetaminophen (Tylenol) 650 mg PO Q4H PRN PRN Reason: Pain MILD(1-3)/Fever >100.5/HENRY Amlodipine Besylate (Norvasc) 10 mg PO DAILY [facility] Last Admin: 08/16/16 10:07 Dose: 10 mg Aspirin (Baby Aspirin) 81 mg PO QDAY [facility] Last Admin: 08/16/16 10:06 Dose: 81 mg Atorvastatin Calcium (Lipitor) 20 mg PO DAILY [facility] Last Admin: 08/16/16 10:06 Dose: 20 mg Bisacodyl (Dulcolax) 10 mg DE QDAY PRN PRN Reason: Constipation unrelieved by MOM Carvedilol (Coreg) 25 mg PO BID [facility] Last Admin: 08/16/16 10:07 Dose: 25 mg Clonidine HCl (Catapres) 0.1 mg PO BID [facility] Last Admin: 08/16/16 10:05 Dose: 0.1 mg Dextrose (D50w (25gm)) 50 ml IV PRN PRN PRN Reason: Hypoglycemia Furosemide (Lasix) 20 mg PO QDAY PRN PRN Reason: Swelling Hydrochlorothiazide (Hctz) 25 mg PO QDAY [facility] Last Admin: 08/16/16 10:08 Dose: 25 mg Insulin Aspart (Novolog) 0 units SUB-Q ACHS [facility] PRN Reason: Protocol Last Admin: 08/16/16 07:08 Dose: Not Given Insulin Human Isoph/Insulin Regular (Novolin 70/30) 15 unit SUB-Q QAMDIAB [facility] Last Admin: 08/16/16 09:09 Dose: Not Given Insulin Human Isoph/Insulin Regular (Novolin 70/30) 15 unit SUB-Q QPMDIAB [facility] Last Admin: 08/14/16 19:02 Dose: Not Given Latanoprost (Xalatan 0.005%) 1 drops OD QPM [facility] Last Admin: 08/15/16 17:56 Dose: Not Given Metoclopramide HCl (Reglan) 10 mg IV Q6H PRN PRN Reason: Nausea And Vomiting Last Admin: 08/14/16 10:30 Dose: 10 mg Morphine Sulfate (Morphine) 2 mg IV Q5MIN PRN PRN Reason: Chest Pain Ondansetron HCl (Zofran) 4 mg IV Q8H PRN PRN Reason: N/V unrelieved by Reglan Sodium Chloride (Sodium Chloride Flush Syringe 10 Ml) 10 ml IV PRN PRN PRN Reason: LINE FLUSH Triamcinolone Acetonide (Kenalog) 1 applic TP TID [facility] Last Admin: 08/16/16 09:09 Dose: Not Given Physical Examination Vital signs: Vital Signs Temp Pulse Resp BP Pulse Ox 98.5 F 73 16 152/77 96 08/14/16 04:36 08/14/16 04:36 08/14/16 04:36 08/14/16 04:36 08/14/16 04:36 General appearance: no acute distress, alert, other (obese) Eyes: non-icteric ENT: oropharynx moist Effort: normal Ascultation: Bilateral: clear Percussion: Bilateral: not dull Tactile fremitus: Bilateral: normal Cardiovascular: regular rate and rhythm Gastrointestinal: normoactive bowel sounds, other (obese) Integumentary: normal Extremities: no cyanosis, no edema, pink and warm, pulses normal Musculoskeletal: no deformities Gait: normal gait normal mental status, non-focal exam mood appropriate, affect normal Results - Laboratory Findings CBC and BMP: 08/16/16 06:20 08/16/16 06:20 Abnormal lab findings: Abnormal Labs 08/14/16 08/14/16 08/15/16 13:53 22:22 06:18 RBC 3.16 L Hgb 8.7 L Hct 27.9 L MCH RDW 16.5 H [place] % (Auto) 10.5 H Eos % (Auto) Sodium Chloride Carbon Dioxide BUN Creatinine Glucose POC Glucose 139 H 195 H Calcium Albumin 08/15/16 08/16/16 08/16/16 06:18 06:20 06:20 RBC 3.10 L Hgb 8.5 L Hct 26.8 L MCH 27 L RDW 16.4 H [place] % (Auto) 12.0 H Eos % (Auto) 4.6 H Sodium 146 H Chloride 112.6 H 108.5 H Carbon Dioxide 18 L 18 L BUN 48 H 52 H Creatinine 3.1 H 3.3 H Glucose 132 H 52 L POC Glucose Calcium 8.3 L 8.3 L Albumin 3.2 L - Diagnostic Findings Chest x-ray: image reviewed (as stated in HPI) Assessment and Plan 61 y/o, obese female with CAD, DM, HTN, HLPD and stage IV chronic kidney disease admitted with dyspnea. 1. Needs echo to evaluate for pulmonary hypertension 2. Will also need full PFT and six minute walk in office along with room air ABG 3. Should also be screened for sleep apnea as she has several risk factors for this. 4. This work up can be completed as an outpatient and I have no objection to discharge.
--- NOTE | 2016-08-16 16:26 | Progress Note ---
Assessment and Plan Impression: * Stage IV chronic kidney disease --SCr 3.4mg/dL in Jun 2016 * Chest pain --Stress test: no ischemia; nml LVEF * Dypsnea --CXR: no pulmonary edema --LE doppler: no LE DVT * Hypertension * Type II DM Plan: * Renal function is at baseline * Diuresis prn * Note pulmonary recommendations * Strict I/O * Avoid potential nephrotoxins * Dose medications for renal function Subjective Date of service: 08/16/16 Principal diagnosis: shortness of breath Objective - Vital Signs Vital signs: Vital Signs - 12hr 08/16/16 08/16/16 08/16/16 05:49 08:00 10:05 Temperature 98.7 F 97.5 F L Pulse Rate 71 Pulse Rate [ 75 71 Left Radial] Respiratory 20 18 Rate Blood Pressure 134/63 Blood Pressure 134/64 134/63 [Left Radial Artery] O2 Sat by Pulse 96 99 Oximetry 08/16/16 08/16/16 10:07 12:00 Temperature 97.8 F Pulse Rate 71 Pulse Rate [ 72 Left Radial] Respiratory 18 Rate Blood Pressure 134/63 Blood Pressure 135/65 [Left Radial Artery] O2 Sat by Pulse Oximetry - Lab 08/16/16 06:20 08/16/16 06:20 Most recent lab results Calcium 8.3 mg/dL (8.4-10.2) L 08/16/16 06:20
== END 2016-08-16 13:00 | disposition home or self-care (01) | DRG 682 ==
LOC: ED 04:26 → 4A 08:09
PROVIDERS: ADMIT Internal Medicine; ATTEND Family Medicine
DX: N17.9 Acute kidney failure, unspecified (principal); I50.33 Acute on chronic diastolic (congestive) heart failure; E87.2 Acidosis; I13.0 Hypertensive heart and chronic kidney disease with heart failure and stage 1 through stage 4 chronic kidney disease, or unspecified chronic kidney disease; Z68.41 Body mass index [BMI] 40.0-44.9, adult; E11.22 Type 2 diabetes mellitus with diabetic chronic kidney disease; H40.9 Unspecified glaucoma; E66.9 Obesity, unspecified; N18.4 Chronic kidney disease, stage 4 (severe); I25.119 Atherosclerotic heart disease of native coronary artery with unspecified angina pectoris; E78.5 Hyperlipidemia, unspecified; Z79.4 Long term (current) use of insulin; Z87.442 Personal history of urinary calculi; Z90.49 Acquired absence of other specified parts of digestive tract; Z79.899 Other long term (current) drug therapy
CPT/HCPCS: 36415; 71020; 78452; 80048; 80053; 82550; 82553; 82962; 83880; 84484; 85025; 90686; 90732; 93005; 93010; 93017; 93970; A9270-GY; A9502; J1815; J2765; J2785

== ENCOUNTER 2017-08-30 04:45 | Inpatient (IN) | payer OTHER ==
[2017-08-30] MEDS ORDERED: D50W (25GM) Syringe IV ONE ×3 (04:50→09:11)
--- NOTE | 2017-08-30 05:10 | Emergency Department Report ---
Blank Doc - Documentation Documentation: She is a 62-year-old female that presents emergency with hypoglycemia and altered mental status and decreased level of consciousness. Initial complaint EMS was unresponsiveness. Per EMS patient was given a double dose of insulin by accident by her family members. Patient has a history of congestive heart failure hypertension and diabetes. EMS unable to obtain IV or give any type of D50. Last blood sugar by EMS is 42. Patient is responsive but lethargic. Patient is arousable. Right EJ was started by ER nurses and 2 A of D50 given. Sugar at this time is 209. Patient is now A&OX4. We'll initiate orders. Patient appears to be improving or nurses continue to monitor sugar and admit patient to diabetes specialist. We'll do a cardiac workup with an EKG.
--- NOTE | 2017-08-30 06:30 | Emergency Department Report ---
ED General Adult HPI - General Chief complaint: Altered Mental Status Stated complaint: UNRESPONSIVE/HYPOGLYCEMIA Time Seen by Provider: 08/30/17 05:06 Source: EMS Mode of arrival: Ambulatory Limitations: Physical Limitation - History of Present Illness Initial comments: This is a 62-year-old female with insulin-dependent diabetes and chronic renal insufficiency. She presented to the emergency department when she was found to be lethargic and hypoglycemic. EMS administered an amp of D50 and the patient' s mental status improved. She arrived at this facility and had a workup which revealed worsening renal failure and hyperkalemia. She also told me that she has been short of breath and has had some increasing leg swelling. The patient has been prior seen by Dr. Rico. -: Gradual, This morning Consistency: other (no complaints of pain) Associated Symptoms: shortness of breath Treatments Prior to Arrival: other (D50) - Related Data Home Medications Medication Instructions Recorded Confirmed Last Taken Aspirin [Aspirin BABY CHEW TAB] 81 mg PO PRN 08/14/16 08/30/17 Unknown Previous Rx's Medication Instructions Recorded Last Taken Type AtorvaSTATin [Lipitor] 20 mg PO DAILY #30 tablet 08/16/16 Unknown Rx Carvedilol [Coreg] 25 mg PO BID #60 tablet 08/16/16 Unknown Rx Furosemide [Lasix TAB] 20 mg PO QDAY PRN #30 tablet 08/16/16 Unknown Rx Insulin NPH/Regular [NovoLIN 70/30] 15 unit SQ QPM #100 units 08/16/16 Unknown Rx Insulin NPH/Regular [NovoLIN 70/30] 15 unit SUB-Q QAM #100 units 08/16/16 Unknown Rx amLODIPine [Norvasc] 10 mg PO DAILY #30 tablet 08/16/16 Unknown Rx cloNIDine [Catapres] 0.1 mg PO BID #60 tablet 08/16/16 Unknown Rx Allergies Allergy/AdvReac Type Severity Reaction Status Date / Time No Known Allergies Allergy Unverified 06/29/16 09:31 ED Review of Systems ROS: Stated complaint: UNRESPONSIVE/HYPOGLYCEMIA Other details as noted in HPI Constitutional: weakness. denies: chills, fever Eyes: denies: eye pain, vision change ENT: denies: ear pain, throat pain Respiratory: shortness of breath, SOB with exertion Cardiovascular: denies: chest pain, palpitations Endocrine: no symptoms reported Gastrointestinal: denies: abdominal pain, vomiting Genitourinary: denies: urgency, dysuria Musculoskeletal: denies: back pain, joint swelling Skin: denies: rash, lesions Neurological: denies: weakness, numbness Psychiatric: denies: anxiety, depression Hematological/Lymphatic: denies: easy bleeding, easy bruising ED Past Medical Hx - Past Medical History Hx Hypertension: Yes Hx Congestive Heart Failure: Yes Hx Diabetes: Yes Hx Renal Disease: Yes (Renal Insufficiency) Hx Kidney Stones: Yes (Early Kidney Failure) Hx Asthma: No Hx COPD: No Additional medical history: Glaucoma - Surgical History Hx Cholecystectomy: Yes - Social History Smoking Status: Unknown if ever smoked - Medications Home Medications: Home Medications Medication Instructions Recorded Confirmed Last Taken Type Aspirin [Aspirin BABY CHEW TAB] 81 mg PO PRN 08/14/16 08/30/17 Unknown History AtorvaSTATin [Lipitor] 20 mg PO DAILY #30 tablet 08/16/16 08/30/17 Unknown Rx Carvedilol [Coreg] 25 mg PO BID #60 tablet 08/16/16 08/30/17 Unknown Rx Furosemide [Lasix TAB] 20 mg PO QDAY PRN #30 tablet 08/16/16 08/30/17 Unknown Rx Insulin NPH/Regular [NovoLIN 70/30] 15 unit SQ QPM #100 units 08/16/16 08/30/17 Unknown Rx Insulin NPH/Regular [NovoLIN 70/30] 15 unit SUB-Q QAM #100 units 08/16/16 Unknown Rx amLODIPine [Norvasc] 10 mg PO DAILY #30 tablet 08/16/16 08/30/17 Unknown Rx cloNIDine [Catapres] 0.1 mg PO BID #60 tablet 08/16/16 08/30/17 Unknown Rx ED Physical Exam - General Limitations: Physical Limitation General appearance: alert, in no apparent distress - Head Head exam: Present: atraumatic, normocephalic - Eye Eye exam: Present: normal appearance. Absent: scleral icterus - ENT ENT exam: Present: mucous membranes moist - Neck Neck exam: Present: normal inspection. Absent: tenderness, meningismus - Respiratory Respiratory exam: Present: normal lung sounds bilaterally. Absent: respiratory distress - Cardiovascular Cardiovascular Exam: Present: regular rate, normal rhythm. Absent: systolic murmur, diastolic murmur, rubs, gallop - GI/Abdominal GI/Abdominal exam: Present: soft, normal bowel sounds. Absent: distended, tenderness, guarding, rebound, rigid - Extremities Exam Extremities exam: Present: normal inspection. Absent: normal capillary refill, pedal edema, joint swelling, calf tenderness - Back Exam Back exam: Present: normal inspection. Absent: CVA tenderness (R), CVA tenderness (L) - Neurological Exam Neurological exam: Present: CN II-XII intact. Absent: motor sensory deficit - Psychiatric Psychiatric exam: Present: normal affect, normal mood - Skin Skin exam: Present: warm, dry, intact, normal color. Absent: rash ED Course Vital Signs 08/30/17 08/30/17 08/30/17 04:55 05:00 05:14 Pulse Rate 52 L 54 L Respiratory 17 18 16 Rate Blood Pressure 131/71 O2 Sat by Pulse 97 97 98 Oximetry 08/30/17 08/30/17 08/30/17 05:16 05:30 05:46 Pulse Rate 57 L 60 58 L Respiratory 18 12 21 Rate Blood Pressure 134/66 154/76 157/83 O2 Sat by Pulse 92 71 L 93 Oximetry 08/30/17 08/30/17 08/30/17 06:00 07:00 07:30 Pulse Rate 58 L 62 62 Respiratory 17 20 14 Rate Blood Pressure 157/83 166/81 140/91 O2 Sat by Pulse 98 95 95 Oximetry 08/30/17 08/30/17 08/30/17 08:00 08:30 09:00 Pulse Rate 66 65 68 Respiratory 22 17 19 Rate Blood Pressure 172/82 158/84 162/96 O2 Sat by Pulse 96 95 98 Oximetry 08/30/17 08/30/17 08/30/17 09:30 10:00 10:30 Pulse Rate 73 78 80 Respiratory 22 24 24 Rate Blood Pressure 157/100 181/82 182/93 O2 Sat by Pulse 96 93 90 Oximetry - Reevaluation(s) Reevaluation #1: Discussed with Dr. Rico. Aware of consult. 08/30/17 09:32 08/30/17 14:41 Patient was found to be significantly hyperkalemic with metabolic acidosis and CHF. Her initial hyperkalemia cocktail consisted of bicarbonate Lasix Kayexalate calcium gluconate insulin and D50. She remained clinically stable. She was admitted to the hospitalist service by Dr. Dutton. I ordered a repeat BMP for him after the patient was admitted. The patient's potassium was still 5.5. I directed the nurse call Dr. Dutton for further management of hyperkalemia in concert with the jumpbasting machine operator as above. ED Medical Decision Making - Lab Data Result diagrams: 08/30/17 06:40 08/30/17 12:56 Laboratory Results - last 24 hr 08/30/17 08/30/17 05:09 06:26 POC Glucose 209 H 90 - EKG Data -: EKG Interpreted by Me EKG shows normal: sinus rhythm Rate: normal - EKG Data Interpretation: other (low-voltage EKG somewhat sharp P waves) Critical Care Time: Yes Critical care time in (mins) excluding proc time.: 60 Critical care attestation.: If time is entered above; I have spent that time in minutes in the direct care of this critically ill patient, excluding procedure time. ED Disposition Clinical Impression: Hypoglycemia due to type 1 diabetes mellitus, Hyperkalemia, Chronic renal failure, stage 4 (severe) Congestive heart failure Qualifiers: Heart failure type: combined systolic and diastolic Heart failure chronicity: acute on chronic Qualified Code(s): I50.43 - Acute on chronic combined systolic (congestive) and diastolic (congestive) heart failure Disposition: 09 OP ADMIT IP TO THIS HOSP Is pt being admited?: Yes Does the pt Need Aspirin: Yes Condition: Stable Time of Disposition: 14:45
[2017-08-30 07:21] LABS: Basophils % (Auto) 0.6 % (0.0-1.8); Eosinophils # (Auto) 0.2 K/mm3 (0.0-0.4); Eosinophils % (Auto) 2.6 % (0.0-4.3); Lymphocytes # (Auto) 0.6 K/mm3 (1.2-5.4); Lymphocytes % (Auto) 9.3 % (13.4-35.0); Mean Corpuscular HGB Conc 30 % (30-34); Mean Corpuscular Hemoglobin 27 pg (28-32); Mean Corpuscular Volume 90 fl (79-97); Monocytes # (Auto) 0.3 K/mm3 (0.0-0.8); Monocytes % (Auto) 4.5 % (0.0-7.3); Platelet Count 224 K/mm3 (140-440); Red Blood Count 3.68 M/mm3 (3.65-5.03)
[2017-08-30 07:30] LABS: Red Cell Distribution Width 20.4 % (13.2-15.2)
[2017-08-30 07:31] LABS: Calcium 8.5 mg/dL (8.4-10.2)
[2017-08-30] MEDS ORDERED: CALCIUM GLUCONATE 1,000 MG in NACL 0.9% 100 ML IV ONE (09:11)
[2017-08-30] MEDS ORDERED: KIONEX PO ONE (09:11)
[2017-08-30] MEDS ORDERED: HumuLIN R IV ONE (09:11)
[2017-08-30] MEDS ORDERED: SODIUM BICARBONATE IV ONE ×3 (09:11→10:00)
[2017-08-30] MEDS ORDERED: LASIX IV ONE ×2 (09:13→16:00)
--- NOTE | 2017-08-30 09:21 | XRay Report ---
AP CHEST: HISTORY: Difficulty in breathing Mild cardiomegaly and pulmonary edema have developed since 08/14/16. Trace pleural effusions are likely present. No convincing pneumonia. No pneumothorax. IMPRESSION: Mild CHF.
--- NOTE | 2017-08-30 11:23 | History and Physical Report ---
History of Present Illness Date of examination: 08/30/17 Date of admission: 08/30/17 Chief complaint: Unresponsiveness History of present illness: Pt is a 62-year-old female whose blood suagr was dfound to be in the 300s at home. She called her daughter to adminiter 15 units of insulin. Thereafter she became dizzy and passed out after blood sugar suddenly dropped to 25. EMS was called. Per EMS patient was given a double dose of insulin by accident by her family members. EMS unable to obtain IV or give any type of D50. Patient has a history of congestive heart failure hypertension and diabetes. Last blood sugar by EMS is 42. On arrival to the ED, D50 was given. Patient became responsive but lethargic. Patient was arousable. Right EJ was started by ER and pt given ampules of D50. Sugar at this time is 209. Pt subsequently became alert and orientd x 4. pt was also noted for have abnormal kidney function. Admission was requested. Medications and Allergies Allergies Allergy/AdvReac Type Severity Reaction Status Date / Time No Known Allergies Allergy Unverified 06/29/16 09:31 Home Medications Medication Instructions Recorded Confirmed Last Taken Type Aspirin [Aspirin BABY CHEW TAB] 81 mg PO PRN 08/14/16 08/30/17 Unknown History AtorvaSTATin [Lipitor] 20 mg PO DAILY #30 tablet 08/16/16 08/30/17 Unknown Rx Carvedilol [Coreg] 25 mg PO BID #60 tablet 08/16/16 08/30/17 Unknown Rx Furosemide [Lasix TAB] 20 mg PO QDAY PRN #30 tablet 08/16/16 08/30/17 Unknown Rx Insulin NPH/Regular [NovoLIN 70/30] 15 unit SQ QPM #100 units 08/16/16 08/30/17 Unknown Rx Insulin NPH/Regular [NovoLIN 70/30] 15 unit SUB-Q QAM #100 units 08/16/16 Unknown Rx amLODIPine [Norvasc] 10 mg PO DAILY #30 tablet 08/16/16 08/30/17 Unknown Rx cloNIDine [Catapres] 0.1 mg PO BID #60 tablet 08/16/16 08/30/17 Unknown Rx Exam - Constitutional Vitals: Temp Pulse Resp BP Pulse Ox 80 24 182/93 90 08/30/17 10:30 08/30/17 10:30 08/30/17 10:30 08/30/17 10:30 Results - Labs CBC & Chem 7: 08/30/17 06:40 08/30/17 12:56 Labs: Abnormal lab results 08/30/17 08/30/17 08/30/17 Range/Units 05:09 06:40 06:40 Hgb 10.0 L (10.1-14.3) gm/dl MCH 27 L (28-32) pg RDW 20.4 H (13.2-15.2) % Lymph % (Auto) 9.3 L (13.4-35.0) % Lymph # 0.6 L (1.2-5.4) K/mm3 Seg Neutrophils % 83.0 H (40.0-70.0) % Potassium 6.1 H* (3.6-5.0) mmol/L Chloride 109.7 H (98-107) mmol/L Carbon Dioxide 18 L (22-30) mmol/L BUN 44 H (7-17) mg/dL Creatinine 3.5 H (0.7-1.2) mg/dL POC Glucose 209 H (70-105) 08/30/17 Range/Units 09:24 Hgb (10.1-14.3) gm/dl MCH (28-32) pg RDW (13.2-15.2) % Lymph % (Auto) (13.4-35.0) % Lymph # (1.2-5.4) K/mm3 Seg Neutrophils % (40.0-70.0) % Potassium (3.6-5.0) mmol/L Chloride (98-107) mmol/L Carbon Dioxide (22-30) mmol/L BUN (7-17) mg/dL Creatinine (0.7-1.2) mg/dL POC Glucose 69 L (70-105) Assessment and Plan AMS Secondary to hypoglycemia DM with hypoglycemia ADEBAYO Anemia Hyperkalemia HTN H/O Heart failure Full code Admit to Tele Sliding scale insulin, A1c, Consistent CHO diet Cautious IV hydration with NS renal US Urine lytes. Nephrology consulted [facility] BP control Heart failure protocol ECHO DVT/GI PPx
[2017-08-30] MEDS ORDERED: D50W (25GM) Syringe IV PRN (11:32)
[2017-08-30] MEDS ORDERED: COREG PO ONE (11:32)
[2017-08-30] MEDS ORDERED: LASIX PO SCH (12:00)
[2017-08-30] MEDS: NORVASC PO SCH (13:27)
[2017-08-30] MEDS: BABY ASPIRIN PO SCH (13:27)
[2017-08-30] MEDS: CATAPRES PO SCH ×2 (13:27→22:42)
[2017-08-30] MEDS: LOVENOX SUB-Q SCH (13:27)
[2017-08-30 13:30] LABS: INR 1.23 (0.87-1.13)
[2017-08-30 13:32] LABS: Calcium 8.5 mg/dL (8.4-10.2)
[2017-08-30] MEDS: TYLENOL PO PRN ×2 (14:15→22:43)
--- NOTE | 2017-08-30 14:22 | Consultation ---
History of Present Illness - Reason for Consult Consult date: 08/30/17 chronic renal failure, hyperkalemia - History of Present Illness Mrs. Fletcher is a 62yo with CKD, type II DM and hypertension who presented to the ED with AMS. Patient reports her sugar increased to 295. Her daughter became concerned and administered insulin. Patient reports she became diaphoretic w/ lethargy. Sugar was 20-30s. EMS was called to patient's home and she was transported to the ED. Labs in the ED were notable for K 6.1, SCr 3.5mg/dL Mrs. Fletcher also reports worsening SOB and swelling. She reports that she ran out of Lasix for appx 3 days. When it was resumed, she reports swelling failed to improve. She also reports nonadherence to fluid restriction and K restricted diet. Mrs. Fletcher denies chest pain, nausea, vomiting. She reports decline in UOP. She is followed by Dr. Roy. Nephrology consultation requested by the ED. Past History Past Medical History: diabetes, hypertension, hyperlipidemia, other (CKD) Social history: no significant social history Family history: no significant family history Medications and Allergies Allergies Allergy/AdvReac Type Severity Reaction Status Date / Time No Known Allergies Allergy Unverified 06/29/16 09:31 Home Medications Medication Instructions Recorded Confirmed Last Taken Type Aspirin [Aspirin BABY CHEW TAB] 81 mg PO PRN 08/14/16 08/30/17 Unknown History AtorvaSTATin [Lipitor] 20 mg PO DAILY #30 tablet 08/16/16 08/30/17 Unknown Rx Carvedilol [Coreg] 25 mg PO BID #60 tablet 08/16/16 08/30/17 Unknown Rx Furosemide [Lasix TAB] 20 mg PO QDAY PRN #30 tablet 08/16/16 08/30/17 Unknown Rx Insulin NPH/Regular [NovoLIN 70/30] 15 unit SQ QPM #100 units 08/16/16 08/30/17 Unknown Rx Insulin NPH/Regular [NovoLIN 70/30] 15 unit SUB-Q QAM #100 units 08/16/16 Unknown Rx amLODIPine [Norvasc] 10 mg PO DAILY #30 tablet 08/16/16 08/30/17 Unknown Rx cloNIDine [Catapres] 0.1 mg PO BID #60 tablet 08/16/16 08/30/17 Unknown Rx Active Meds: Active Medications Acetaminophen (Tylenol) 650 mg PO Q6H PRN PRN Reason: Pain, Mild (1-3) Amlodipine Besylate (Norvasc) 10 mg PO DAILY [facility] Last Admin: 08/30/17 13:27 Dose: 10 mg Aspirin (Baby Aspirin) 81 mg PO QDAY [facility] Last Admin: 08/30/17 13:27 Dose: 81 mg Atorvastatin Calcium (Lipitor) 20 mg PO QHS [facility] Clonidine HCl (Catapres) 0.1 mg PO BID [facility] Last Admin: 08/30/17 13:27 Dose: 0.1 mg Dextrose (D50w (25gm) Syringe) 50 ml IV PRN PRN PRN Reason: Hypoglycemia Enoxaparin Sodium (Lovenox) 30 mg SUB-Q QDAY [facility] Last Admin: 08/30/17 13:27 Dose: 30 mg Furosemide (Lasix) 20 mg PO QDAY [facility] Last Admin: 08/30/17 13:27 Dose: 20 mg Insulin Human Lispro (Humalog) 0 unit SUB-Q ACHS [facility]; Protocol Triamcinolone Acetonide (Kenalog) 1 applic TP TID [facility] Review of Systems All systems: negative Cardiovascular: leg edema Respiratory: shortness of breath, dyspnea on exertion Exam - Vital Signs Vital signs: Vital Signs Pulse Resp Pulse Ox 52 L 17 97 08/30/17 04:55 08/30/17 04:55 08/30/17 04:55 - General Appearance General appearance: well-developed, well-nourished EENT: ATNC Respiratory: Other (inspiratory crackles) Heart: regular, S1S2 Gastrointestinal: Present: obese Integumentary: no rash, warm and dry Neurologic: no focal deficit, alert and oriented x3 Musculoskeletal: Present: other (+edema) Psychiatric: cooperative Results - Lab Results 08/30/17 06:40 08/30/17 12:56 Most recent lab results Calcium 8.5 mg/dL (8.4-10.2) 08/30/17 12:56 Assessment and Plan Impression: * Acute kidney injury on stage IV chronic kidney disease * Hyperkalemia * Pulmonary edema * Hypoglycemia * Type II DM * Hypertension * Metabolic acidosis Plan: * K improved s/p medical management * Continue diuresis with IV lasix * Restrict dietary K intake * Glycemic control per team * Avoid potential nephrotoxins * Dose medications for renal function
[2017-08-30] MEDS: HumaLOG SUB-Q SCH ×2 (16:29→23:22)
[2017-08-30] MEDS: KENALOG TP SCH ×2 (22:40)
[2017-08-31] MEDS: HumaLOG SUB-Q SCH ×4 (07:30→23:26)
[2017-08-31] MEDS: KENALOG TP SCH ×3 (08:01→20:39)
--- NOTE | 2017-08-31 11:50 | Progress Note ---
Assessment and Plan Impression: * Acute kidney injury on stage IV chronic kidney disease * Hyperkalemia - improved s/p medical management * Pulmonary edema * Hypoglycemia * Type II DM * Hypertension * Metabolic acidosis Plan: * AM labs are pending * Lasix 40mg IV x 1 dose today * TTE pending * Restrict dietary K intake * Glycemic control per team * Avoid potential nephrotoxins * Dose medications for renal function Subjective Date of service: 08/31/17 Interval history: Patient has no complaints today. Objective - Vital Signs Vital signs: Vital Signs - 12hr 08/31/17 08/31/17 02:47 09:04 Temperature 99.1 F Pulse Rate 91 H Respiratory 16 Rate Blood Pressure 185/90 [Right] O2 Sat by Pulse 97 92 Oximetry - General Appearance General appearance: well-developed, well-nourished EENT: ATNC Respiratory: Present: Clear to Ascultation Cardiology: regular, S1S2 Gastrointestinal: normal, no tenderness, no distended, obese Integumentary: no rash, warm and dry Neurologic: alert and oriented x3 Musculoskeletal: other (trace edema - improved c/w yesterday) Psychiatric: cooperative - Lab 08/30/17 06:40 08/30/17 12:56 Most recent lab results Calcium 8.5 mg/dL (8.4-10.2) 08/30/17 12:56
[2017-08-31] MEDS ORDERED: Fluarix Quad 2017-2018(36 MOS+ IM ONE (12:00)
--- NOTE | 2017-08-31 12:38 | Progress Note ---
Assessment and Plan DM with hypoglycemia ADEBAYO and CKD stage 5 Anemia Hyperkalemia HTN H/O Heart failure Full code Sliding scale insulin, A1c, Consistent CHO diet Cautious IV hydration with NS renal US Urine lytes. Nephrology consulted Optimize BP control Heart failure protocol ECHO DVT/GI PPx Subjective Date of service: 08/31/17 Principal diagnosis: no more syncope. Interval history: Admitted for hypogluycemic induce syncope. had Acute on chronic kidney disease Objective - Constitutional Vitals: Vital Signs - 12hr 08/31/17 08/31/17 02:47 09:04 Temperature 99.1 F Pulse Rate 91 H Respiratory 16 Rate Blood Pressure 185/90 [Right] O2 Sat by Pulse 97 92 Oximetry General appearance: Present: no acute distress, well-nourished - EENT Eyes: PERRL, EOM intact - Neck Neck: supple, normal ROM - Respiratory Respiratory effort: normal Respiratory: bilateral: CTA - Cardiovascular Rhythm: regular Heart Sounds: Present: S1 & S2. Absent: gallop, rub Extremities: pulses intact, No edema, normal color, Full ROM - Gastrointestinal General gastrointestinal: Present: soft, non-tender, non-distended, normal bowel sounds - Integumentary Integumentary: clear, warm, dry - Musculoskeletal Musculoskeletal: 1, strength equal bilaterally - Neurologic Neurologic: moves all extremities - Psychiatric Psychiatric: memory intact, appropriate mood/affect, intact judgment & insight - Labs CBC & Chem 7: 08/30/17 06:40 08/30/17 12:56 Labs: Abnormal lab results 08/30/17 08/30/17 08/30/17 Range/Units 12:56 12:56 15:08 PT 16.2 H (12.2-14.9) Sec. INR 1.23 H (0.87-1.13) Potassium 5.5 H (3.6-5.0) mmol/L Chloride 108.4 H (98-107) mmol/L Carbon Dioxide 18 L (22-30) mmol/L BUN 45 H (7-17) mg/dL Creatinine 3.6 H (0.7-1.2) mg/dL Glucose 55 L (65-100) mg/dL POC Glucose 111 H (70-105)
[2017-08-31] MEDS: LOVENOX SUB-Q SCH (12:45)
[2017-08-31] MEDS: CATAPRES PO SCH ×2 (12:45→23:11)
[2017-08-31] MEDS: BABY ASPIRIN PO SCH (12:45)
[2017-08-31] MEDS: NORVASC PO SCH (12:45)
[2017-08-31 13:45] LABS: Calcium 8.3 mg/dL (8.4-10.2)
[2017-08-31] MEDS ORDERED: LASIX IV ONE (14:00)
[2017-08-31] MEDS: COREG PO SCH ×2 (15:11→23:12)
[2017-08-31 15:46] LABS: Calcium 8.1 mg/dL (8.4-10.2)
[2017-08-31] MEDS: TYLENOL PO PRN (16:07)
[2017-08-31] MEDS ORDERED: KIONEX PO ONE (20:00)
[2017-09-01 06:19] LABS: Hematocrit 26.1 % (30.3-42.9); Hemoglobin 8.4 gm/dl (10.1-14.3); Mean Corpuscular HGB Conc 32 % (30-34); Mean Corpuscular Hemoglobin 28 pg (28-32); Mean Corpuscular Volume 86 fl (79-97); Platelet Count 162 K/mm3 (140-440); Red Blood Count 3.04 M/mm3 (3.65-5.03)
[2017-09-01 06:31] LABS: Red Cell Distribution Width 20.2 % (13.2-15.2)
[2017-09-01 06:57] LABS: Albumin 3.1 g/dL (3.9-5); Calcium 7.8 mg/dL (8.4-10.2)
[2017-09-01] MEDS: HumaLOG SUB-Q SCH ×4 (07:15→21:43)
[2017-09-01] MEDS: BABY ASPIRIN PO SCH (10:30)
[2017-09-01] MEDS: LOVENOX SUB-Q SCH (10:31)
[2017-09-01] MEDS: NORVASC PO SCH (10:31)
[2017-09-01] MEDS: CATAPRES PO SCH ×2 (10:31→21:44)
[2017-09-01] MEDS: COREG PO SCH ×2 (10:31→21:44)
[2017-09-01] MEDS: KENALOG TP SCH ×3 (10:34→21:43)
[2017-09-01 10:50] LABS: Anisocytosis 1+; Hypochromasia 1+; Platelet Estimate Consistent w Auto; Schistocytes Few; Total Cells Counted 100
--- NOTE | 2017-09-01 13:03 | Progress Note ---
Assessment and Plan Assessment and plan: Acute on chronic kidney disease stage IV. -On when necessary furosemide. -No significant change in the creatinine level. -Nephrology is following. Hyperkalemia, resolved -Status post Kayexalate. -Continue to monitor K level. Metabolic acidosis secondary to the renal failure. -We'll continue to monitor her bicarbonate level. Pulmonary edema. -Improved with furosemide. Hypernatremia. -Nephrology following -We'll continue to monitor sodium level. Hypertension. -Controlled on meds. Insulin-dependent diabetes mellitus type 2 with hypoglycemia. -Blood glucose stable. Disposition: Discharge patient when medically stable. History Interval history: Patient is a 62 year old female admitted for acute on chronic renal failure. She denies any new complaints. Hospitalist Physical - Constitutional Vitals: Temp Pulse Resp BP Pulse Ox 97.9 F 84 22 148/78 95 09/01/17 05:00 09/01/17 10:00 09/01/17 10:00 09/01/17 10:31 09/01/17 12:15 General appearance: Present: no acute distress, well-nourished - EENT Eyes: Present: PERRL ENT: hearing intact - Neck Neck: Present: supple - Respiratory Respiratory effort: normal Respiratory: bilateral: CTA - Cardiovascular Rhythm: regular Heart Sounds: Present: S1 & S2 - Extremities Extremity abnormal: edema (in BLE) - Abdominal General gastrointestinal: soft, non-tender, normal bowel sounds - Neurologic Neurologic: CNII-XII intact Results - Labs CBC & Chem 7: 09/01/17 05:19 09/01/17 05:19 Labs: Laboratory Last Values WBC 5.8 K/mm3 (4.5-11.0) 09/01/17 05:19 RBC 3.04 M/mm3 (3.65-5.03) L 09/01/17 05:19 Hgb 8.4 gm/dl (10.1-14.3) L 09/01/17 05:19 Hct 26.1 % (30.3-42.9) L D 09/01/17 05:19 MCV 86 fl (79-97) 09/01/17 05:19 MCH 28 pg (28-32) 09/01/17 05:19 MCHC 32 % (30-34) 09/01/17 05:19 RDW 20.2 % (13.2-15.2) H 09/01/17 05:19 Plt Count 162 K/mm3 (140-440) 09/01/17 05:19 Lymph % (Auto) 9.3 % (13.4-35.0) L 08/30/17 06:40 [place] % (Auto) 4.5 % (0.0-7.3) 08/30/17 06:40 Eos % (Auto) 2.6 % (0.0-4.3) 08/30/17 06:40 Baso % (Auto) 0.6 % (0.0-1.8) 08/30/17 06:40 Lymph # 0.6 K/mm3 (1.2-5.4) L 08/30/17 06:40 [place] # 0.3 K/mm3 (0.0-0.8) 08/30/17 06:40 Eos # 0.2 K/mm3 (0.0-0.4) 08/30/17 06:40 Baso # 0.0 K/mm3 (0.0-0.1) 08/30/17 06:40 Add Manual Diff Complete 09/01/17 05:19 Total Counted 100 09/01/17 05:19 Seg Neutrophils % 83.0 % (40.0-70.0) H 08/30/17 06:40 Seg Neuts % (Manual) 77.0 % (40.0-70.0) H 09/01/17 05:19 Band Neutrophils % 0 % 09/01/17 05:19 Lymphocytes % (Manual) 11.0 % (13.4-35.0) L 09/01/17 05:19 Reactive Lymphs % (Man) 0 % 09/01/17 05:19 Monocytes % (Manual) 4.0 % (0.0-7.3) 09/01/17 05:19 Eosinophils % (Manual) 7.0 % (0.0-4.3) H 09/01/17 05:19 Basophils % (Manual) 1.0 % (0.0-1.8) 09/01/17 05:19 Metamyelocytes % 0 % 09/01/17 05:19 Myelocytes % 0 % 09/01/17 05:19 Promyelocytes % 0 % 09/01/17 05:19 Blast Cells % 0 % 09/01/17 05:19 Nucleated RBC % Not Reportable 09/01/17 05:19 Seg Neutrophils # 5.0 K/mm3 (1.8-7.7) 08/30/17 06:40 Seg Neutrophils # Man 4.5 K/mm3 (1.8-7.7) 09/01/17 05:19 Band Neutrophils # 0.0 K/mm3 09/01/17 05:19 Lymphocytes # (Manual) 0.6 K/mm3 (1.2-5.4) L 09/01/17 05:19 Abs React Lymphs (Man) 0.0 K/mm3 09/01/17 05:19 Monocytes # (Manual) 0.2 K/mm3 (0.0-0.8) 09/01/17 05:19 Eosinophils # (Manual) 0.4 K/mm3 (0.0-0.4) 09/01/17 05:19 Basophils # (Manual) 0.1 K/mm3 (0.0-0.1) 09/01/17 05:19 Metamyelocytes # 0.0 K/mm3 09/01/17 05:19 Myelocytes # 0.0 K/mm3 09/01/17 05:19 Promyelocytes # 0.0 K/mm3 09/01/17 05:19 Blast Cells # 0.0 K/mm3 09/01/17 05:19 WBC Morphology Not Reportable 09/01/17 05:19 Hypersegmented Neuts Not Reportable 09/01/17 05:19 Hyposegmented Neuts Not Reportable 09/01/17 05:19 Hypogranular Neuts Not Reportable 09/01/17 05:19 Smudge Cells Not Reportable 09/01/17 05:19 Toxic Granulation Not Reportable 09/01/17 05:19 Toxic Vacuolation Not Reportable 09/01/17 05:19 Dohle Bodies Not Reportable 09/01/17 05:19 Pelger-Huet Anomaly Not Reportable 09/01/17 05:19 Gwen Rods Not Reportable 09/01/17 05:19 Platelet Estimate Consistent w auto 09/01/17 05:19 Clumped Platelets Not Reportable 09/01/17 05:19 Plt Clumps, EDTA Not Reportable 09/01/17 05:19 Large Platelets Not Reportable 09/01/17 05:19 Giant Platelets Not Reportable 09/01/17 05:19 Platelet Satelliting Not Reportable 09/01/17 05:19 Plt Morphology Comment Not Reportable 09/01/17 05:19 RBC Morphology Not Reportable 09/01/17 05:19 Dimorphic RBCs Not Reportable 09/01/17 05:19 Polychromasia Not Reportable 09/01/17 05:19 Hypochromasia 1+ 09/01/17 05:19 Poikilocytosis Not Reportable 09/01/17 05:19 Anisocytosis 1+ 09/01/17 05:19 Microcytosis 1+ 09/01/17 05:19 Macrocytosis Not Reportable 09/01/17 05:19 Spherocytes Not Reportable 09/01/17 05:19 Pappenheimer Bodies Not Reportable 09/01/17 05:19 Sickle Cells Not Reportable 09/01/17 05:19 Target Cells Not Reportable 09/01/17 05:19 Tear Drop Cells Not Reportable 09/01/17 05:19 Ovalocytes Not Reportable 09/01/17 05:19 Helmet Cells Not Reportable 09/01/17 05:19 [place] Bodies Not Reportable 09/01/17 05:19 [place] Rings Not Reportable 09/01/17 05:19 Izabela Cells Not Reportable 09/01/17 05:19 Bite Cells Not Reportable 09/01/17 05:19 Crenated Cell Not Reportable 09/01/17 05:19 Elliptocytes Not Reportable 09/01/17 05:19 Acanthocytes (Spur) Not Reportable 09/01/17 05:19 Rouleaux Not Reportable 09/01/17 05:19 Hemoglobin C Crystals Not Reportable 09/01/17 05:19 Schistocytes Few 09/01/17 05:19 Malaria parasites Not Reportable 09/01/17 05:19 Zach Bodies Not Reportable 09/01/17 05:19 Hem Pathologist Commnt No 09/01/17 05:19 PT 16.2 Sec. (12.2-14.9) H 08/30/17 12:56 INR 1.23 (0.87-1.13) H 08/30/17 12:56 Sodium 147 mmol/L (137-145) H 09/01/17 05:19 Potassium 4.5 mmol/L (3.6-5.0) 09/01/17 05:19 Chloride 112.8 mmol/L (98-107) H 09/01/17 05:19 Carbon Dioxide 19 mmol/L (22-30) L 09/01/17 05:19 Anion Gap 20 mmol/L 09/01/17 05:19 BUN 44 mg/dL (7-17) H 09/01/17 05:19 Creatinine 3.6 mg/dL (0.7-1.2) H 09/01/17 05:19 Estimated GFR 16 ml/min 09/01/17 05:19 BUN/Creatinine Ratio 12 % 09/01/17 05:19 Glucose 126 mg/dL (65-100) H 09/01/17 05:19 POC Glucose 143 (70-105) H 09/01/17 05:57 Calcium 7.8 mg/dL (8.4-10.2) L 09/01/17 05:19 Total Bilirubin 0.20 mg/dL (0.1-1.2) 09/01/17 05:19 AST 12 units/L (5-40) 09/01/17 05:19 ALT 12 units/L (7-56) 09/01/17 05:19 Alkaline Phosphatase 74 units/L (35-129) 09/01/17 05:19 Troponin T 0.016 ng/mL (0.00-0.029) 08/30/17 06:40 Total Protein 6.6 g/dL (6.3-8.2) 09/01/17 05:19 Albumin 3.1 g/dL (3.9-5) L 09/01/17 05:19 Albumin/Globulin Ratio 0.9 % 09/01/17 05:19
--- NOTE | 2017-09-01 13:56 | Progress Note ---
Assessment and Plan Impression: * Acute kidney injury on stage IV chronic kidney disease * Hyperkalemia - improved s/p medical management * Pulmonary edema --TTE LVEF 50-55% * Hypoglycemia * Type II DM * Hypertension * Metabolic acidosis * Mild pulmonary hypertension Plan: * Patient remains on 3L supplemental oxygen (she does not wear oxygen at home; states she required oxygen temporarily 2 years ago following PNA) w/ crackles on exam - will give an additional dose of Lasix 40mg IV * Repeat CXR in AM * Wean oxygen - discussed with RN * Restrict dietary K intake * Glycemic control per team * Avoid potential nephrotoxins * Dose medications for renal function Subjective Date of service: 09/01/17 Principal diagnosis: no more syncope. Interval history: Patient reports breathing has improved. Objective - Vital Signs Vital signs: Vital Signs - 12hr 09/01/17 09/01/17 09/01/17 05:00 10:00 10:31 Temperature 97.9 F Pulse Rate 84 84 Respiratory 18 22 Rate Blood Pressure 148/78 Blood Pressure 148/78 [Right] O2 Sat by Pulse 94 97 Oximetry 09/01/17 12:15 Temperature Pulse Rate Respiratory Rate Blood Pressure Blood Pressure [Right] O2 Sat by Pulse 95 Oximetry - General Appearance General appearance: well-developed, well-nourished EENT: ATNC Respiratory: Present: Rales Cardiology: regular, S1S2 Gastrointestinal: normal, no tenderness, no distended Integumentary: no rash, warm and dry Neurologic: alert and oriented x3 Musculoskeletal: other (trace edema) Psychiatric: cooperative - Lab 09/01/17 05:19 09/01/17 05:19 Most recent lab results Calcium 7.8 mg/dL (8.4-10.2) L 09/01/17 05:19
[2017-09-01] MEDS ORDERED: LASIX IV ONE (17:00)
[2017-09-02 06:10] LABS: Basophils % (Auto) 0.4 % (0.0-1.8); Eosinophils # (Auto) 0.3 K/mm3 (0.0-0.4); Eosinophils % (Auto) 4.8 % (0.0-4.3); Hematocrit 26.2 % (30.3-42.9); Hemoglobin 8.3 gm/dl (10.1-14.3); Lymphocytes # (Auto) 0.8 K/mm3 (1.2-5.4); Mean Corpuscular HGB Conc 32 % (30-34); Mean Corpuscular Hemoglobin 28 pg (28-32); Mean Corpuscular Volume 87 fl (79-97); Monocytes # (Auto) 0.5 K/mm3 (0.0-0.8); Monocytes % (Auto) 9.2 % (0.0-7.3); Platelet Count 163 K/mm3 (140-440); Red Blood Count 3.02 M/mm3 (3.65-5.03)
[2017-09-02 06:11] LABS: Red Cell Distribution Width 20.3 % (13.2-15.2)
[2017-09-02 06:22] LABS: Albumin 3.3 g/dL (3.9-5); Calcium 7.8 mg/dL (8.4-10.2)
[2017-09-02] MEDS: HumaLOG SUB-Q SCH ×4 (07:14→22:11)
[2017-09-02] MEDS ORDERED: K-DUR PO NR (08:48)
--- NOTE | 2017-09-02 08:50 | Progress Note ---
Assessment and Plan DM with hypoglycemia ADEBAYO and CKD stage 5 Anemia Hypokalemia HTN H/O Heart failure Full code Sliding scale insulin, A1c, Consistent CHO diet Cautious IV hydration with NS renal US Urine lytes. Nephrology consulted supplement K Optimize BP control Heart failure protocol ECHO nl LV EF of 50-55% DVT/GI PPx Subjective Date of service: 09/02/17 Principal diagnosis: Hypoglycemia induced coma Interval history: Admitted for hypoglycemic induce syncope. had Acute on chronic kidney disease. N new complaint Objective - Constitutional Vitals: Vital Signs - 12hr 09/01/17 09/01/17 09/01/17 20:47 21:21 21:44 Temperature 98.5 F Pulse Rate 85 85 Pulse Rate [ Apical] Respiratory 18 Rate Blood Pressure 169/76 Blood Pressure 169/76 [Right] O2 Sat by Pulse 91 97 Oximetry 09/01/17 09/02/17 09/02/17 22:00 00:50 06:43 Temperature 99.3 F 98.1 F Pulse Rate 79 77 Pulse Rate [ 85 Apical] Respiratory 20 18 18 Rate Blood Pressure Blood Pressure 167/80 165/74 [Right] O2 Sat by Pulse 93 95 Oximetry General appearance: Present: no acute distress, well-nourished - EENT Eyes: PERRL, EOM intact - Neck Neck: supple, normal ROM - Respiratory Respiratory effort: normal Respiratory: bilateral: CTA - Breasts Breasts: normal - Cardiovascular Rhythm: regular Heart Sounds: Present: S1 & S2. Absent: gallop, rub Extremities: pulses intact, No edema, normal color, Full ROM - Gastrointestinal General gastrointestinal: Present: soft, non-tender, non-distended, normal bowel sounds - Genitourinary Female genitourinary: normal - Integumentary Integumentary: clear, warm, dry - Musculoskeletal Musculoskeletal: 1, strength equal bilaterally - Neurologic Neurologic: moves all extremities - Psychiatric Psychiatric: memory intact, appropriate mood/affect, intact judgment & insight - Labs CBC & Chem 7: 09/02/17 05:16 09/02/17 05:16 Labs: Abnormal lab results 09/01/17 09/01/17 09/01/17 Range/Units 05:19 11:39 17:04 RBC (3.65-5.03) M/mm3 Hgb (10.1-14.3) gm/dl Hct (30.3-42.9) % RDW (13.2-15.2) % [place] % (Auto) (0.0-7.3) % Eos % (Auto) (0.0-4.3) % Lymph # (1.2-5.4) K/mm3 Seg Neutrophils % (40.0-70.0) % Seg Neuts % (Manual) 77.0 H (40.0-70.0) % Lymphocytes % (Manual) 11.0 L (13.4-35.0) % Eosinophils % (Manual) 7.0 H (0.0-4.3) % Lymphocytes # (Manual) 0.6 L (1.2-5.4) K/mm3 Sodium (137-145) mmol/L Chloride (98-107) mmol/L Carbon Dioxide (22-30) mmol/L BUN (7-17) mg/dL Creatinine (0.7-1.2) mg/dL Glucose (65-100) mg/dL POC Glucose 206 H 285 H (70-105) Calcium (8.4-10.2) mg/dL Albumin (3.9-5) g/dL 09/01/17 09/02/17 09/02/17 Range/Units 21:39 05:16 05:16 RBC 3.02 L (3.65-5.03) M/mm3 Hgb 8.3 L (10.1-14.3) gm/dl Hct 26.2 L (30.3-42.9) % RDW 20.3 H (13.2-15.2) % [place] % (Auto) 9.2 H (0.0-7.3) % Eos % (Auto) 4.8 H (0.0-4.3) % Lymph # 0.8 L (1.2-5.4) K/mm3 Seg Neutrophils % 71.6 H (40.0-70.0) % Seg Neuts % (Manual) (40.0-70.0) % Lymphocytes % (Manual) (13.4-35.0) % Eosinophils % (Manual) (0.0-4.3) % Lymphocytes # (Manual) (1.2-5.4) K/mm3 Sodium 148 H (137-145) mmol/L Chloride 113.7 H (98-107) mmol/L Carbon Dioxide 20 L (22-30) mmol/L BUN 40 H (7-17) mg/dL Creatinine 3.4 H (0.7-1.2) mg/dL Glucose 103 H (65-100) mg/dL POC Glucose 230 H (70-105) Calcium 7.8 L (8.4-10.2) mg/dL Albumin 3.3 L (3.9-5) g/dL 09/02/17 Range/Units 05:57 RBC (3.65-5.03) M/mm3 Hgb (10.1-14.3) gm/dl Hct (30.3-42.9) % RDW (13.2-15.2) % [place] % (Auto) (0.0-7.3) % Eos % (Auto) (0.0-4.3) % Lymph # (1.2-5.4) K/mm3 Seg Neutrophils % (40.0-70.0) % Seg Neuts % (Manual) (40.0-70.0) % Lymphocytes % (Manual) (13.4-35.0) % Eosinophils % (Manual) (0.0-4.3) % Lymphocytes # (Manual) (1.2-5.4) K/mm3 Sodium (137-145) mmol/L Chloride (98-107) mmol/L Carbon Dioxide (22-30) mmol/L BUN (7-17) mg/dL Creatinine (0.7-1.2) mg/dL Glucose (65-100) mg/dL POC Glucose 122 H (70-105) Calcium (8.4-10.2) mg/dL Albumin (3.9-5) g/dL
[2017-09-02] MEDS ORDERED: LASIX IV NR (08:58)
--- NOTE | 2017-09-02 09:53 | Progress Note ---
Assessment and Plan Impression: * Acute kidney injury on stage IV chronic kidney disease * Hyperkalemia - improved s/p medical management * Pulmonary edema --TTE LVEF 50-55% * Hypoglycemia * Type II DM * Hypertension * Metabolic acidosis * Mild pulmonary hypertension Plan: * Patient remains on 3L supplemental oxygen (she does not wear oxygen at home; states she required oxygen temporarily 2 years ago following PNA) w/ crackles on exam - will give an additional dose of Lasix 40mg IV today * Awaiting results of CXR * Restrict dietary K intake * Glycemic control per team * Avoid potential nephrotoxins * Dose medications for renal function Subjective Date of service: 09/02/17 Principal diagnosis: Hypoglycemia induced coma Interval history: Patient is comfortable. Her shortness of breath is better. Denies any nausea or vomiting. Leg edema also improving Objective - Vital Signs Vital signs: Vital Signs - 12hr 09/01/17 09/02/17 09/02/17 22:00 00:50 06:43 Temperature 99.3 F 98.1 F Pulse Rate 79 77 Pulse Rate [ 85 Apical] Respiratory 20 18 18 Rate Blood Pressure 167/80 165/74 [Right] O2 Sat by Pulse 93 95 Oximetry 09/02/17 08:49 Temperature 98.7 F Pulse Rate 75 Pulse Rate [ Apical] Respiratory 16 Rate Blood Pressure 169/76 [Right] O2 Sat by Pulse 97 Oximetry - General Appearance General appearance: well-developed, well-nourished, appears stated age EENT: PERRL, mucous membranes moist Neck: no JVD, no thyromegaly, no carotid bruit, supple Respiratory: Present: Rales (fine basal crackles) Cardiology: regular, normal heart rate, S1S2, no murmurs Gastrointestinal: normal, normoactive bowel sounds Integumentary: no rash, other (1+ edema ) - Lab 09/02/17 05:16 09/02/17 05:16 Most recent lab results Calcium 7.8 mg/dL (8.4-10.2) L 09/02/17 05:16
[2017-09-02] MEDS: NORVASC PO SCH (11:48)
[2017-09-02] MEDS: CATAPRES PO SCH ×2 (11:48→22:10)
[2017-09-02] MEDS: BABY ASPIRIN PO SCH (11:48)
[2017-09-02] MEDS: COREG PO SCH ×2 (11:49→22:10)
[2017-09-02] MEDS: LOVENOX SUB-Q SCH (11:50)
[2017-09-02] MEDS: KENALOG TP SCH (22:08)
[2017-09-03 06:22] LABS: Basophils % (Auto) 0.4 % (0.0-1.8); Eosinophils # (Auto) 0.3 K/mm3 (0.0-0.4); Eosinophils % (Auto) 4.2 % (0.0-4.3); Hematocrit 26.7 % (30.3-42.9); Hemoglobin 8.3 gm/dl (10.1-14.3); Lymphocytes # (Auto) 0.7 K/mm3 (1.2-5.4); Lymphocytes % (Auto) 10.1 % (13.4-35.0); Mean Corpuscular HGB Conc 31 % (30-34); Mean Corpuscular Hemoglobin 27 pg (28-32); Mean Corpuscular Volume 88 fl (79-97); Monocytes # (Auto) 0.5 K/mm3 (0.0-0.8); Monocytes % (Auto) 7.7 % (0.0-7.3); Platelet Count 174 K/mm3 (140-440); Red Blood Count 3.05 M/mm3 (3.65-5.03)
[2017-09-03 06:37] LABS: Red Cell Distribution Width 20.4 % (13.2-15.2)
[2017-09-03 06:51] LABS: Albumin 3.1 g/dL (3.9-5); Calcium 7.7 mg/dL (8.4-10.2)
--- NOTE | 2017-09-03 09:59 | Progress Note ---
Assessment and Plan Impression: * Acute kidney injury on stage IV chronic kidney disease * Hyperkalemia - improved s/p medical management * Pulmonary edema --TTE LVEF 50-55% * Hypoglycemia * Type II DM * Hypertension * Metabolic acidosis * Mild pulmonary hypertension Plan: * Patient remains on 3L supplemental oxygen (she does not wear oxygen at home; states she required oxygen temporarily 2 years ago following PNA) w/ crackles on exam - she received an additional dose of Lasix 40mg IV yesterday . Maintain her on oral diuretics at this time * Restrict dietary K intake * Glycemic control per team * Avoid potential nephrotoxins * Dose medications for renal function * Add oral sodium bicarbonate * Okay to Discharge from renal standpoint with close outpatient follow-up Subjective Date of service: 09/03/17 Principal diagnosis: Hypoglycemia induced coma Interval history: Patient is comfortable today. Shortness of breath is better. No nausea or vomiting Objective - Vital Signs Vital signs: Vital Signs - 12hr 09/02/17 09/02/17 09/02/17 22:10 22:25 23:19 Temperature Pulse Rate 87 81 Pulse Rate [ 87 Apical] Respiratory 20 Rate Blood Pressure 165/75 Blood Pressure [Right] O2 Sat by Pulse Oximetry 09/02/17 09/03/17 09/03/17 23:54 00:57 07:09 Temperature 98.9 F 98.9 F Pulse Rate 83 75 Pulse Rate [ Apical] Respiratory 18 18 Rate Blood Pressure 179/81 Blood Pressure 166/81 [Right] O2 Sat by Pulse 92 92 93 Oximetry 09/03/17 09/03/17 07:24 08:23 Temperature 99.0 F 98.9 F Pulse Rate 78 73 Pulse Rate [ Apical] Respiratory 20 18 Rate Blood Pressure Blood Pressure 169/75 179/81 [Right] O2 Sat by Pulse 92 92 Oximetry - General Appearance General appearance: well-developed, well-nourished, appears stated age EENT: PERRL, mucous membranes moist Neck: no JVD, no thyromegaly Respiratory: Present: Rales (fine basal crackles ) Cardiology: regular, normal heart rate Gastrointestinal: normal, normoactive bowel sounds Integumentary: other (1+ edema ) - Lab 09/03/17 05:46 09/03/17 05:46 Most recent lab results Calcium 7.7 mg/dL (8.4-10.2) L 09/03/17 05:46
[2017-09-03] MEDS ORDERED: LASIX PO SCH (10:00)
[2017-09-03] MEDS: BABY ASPIRIN PO SCH (11:24)
[2017-09-03] MEDS: COREG PO SCH ×2 (11:25→22:59)
[2017-09-03] MEDS: CATAPRES PO SCH ×2 (11:25→22:59)
[2017-09-03] MEDS: NORVASC PO SCH (11:26)
[2017-09-03] MEDS: LOVENOX SUB-Q SCH (11:27)
[2017-09-03] MEDS: KENALOG TP SCH ×5 (11:27→22:59)
[2017-09-03] MEDS: HumaLOG SUB-Q SCH ×4 (11:29→22:59)
[2017-09-03] MEDS: SODIUM BICARBONATE PO SCH ×2 (11:33→22:59)
--- NOTE | 2017-09-03 22:19 | Progress Note ---
Assessment and Plan DM with hypoglycemia - resolved ADEBAYO and CKD stage 5 Anemia Hypokalemia HTN H/O Heart failure Full code Sliding scale insulin, A1c, Consistent CHO diet Cautious IV hydration with NS renal US - Urine lytes. Nephrology consulted supplement K Optimize BP control Heart failure protocol ECHO nl LV EF of 50-55% DVT/GI PPx Subjective Date of service: 09/03/17 Principal diagnosis: Hypoglycemia induced coma Interval history: Admitted for hypoglycemic induce syncope. had Acute on chronic kidney disease. N new complaint Objective - Constitutional Vitals: Vital Signs - 12hr 09/03/17 09/03/17 09/03/17 11:25 11:26 12:39 Temperature 98.7 F Pulse Rate 73 73 83 Respiratory 18 Rate Blood Pressure 179/81 179/81 Blood Pressure 182/86 [Right] O2 Sat by Pulse 90 Oximetry 09/03/17 09/03/17 09/03/17 15:20 16:30 16:55 Temperature 98.1 F Pulse Rate 70 Respiratory 18 Rate Blood Pressure 154/80 Blood Pressure [Right] O2 Sat by Pulse 92 94 99 Oximetry 09/03/17 09/03/17 09/03/17 17:29 20:40 21:22 Temperature 98.1 F 98.8 F Pulse Rate 70 Respiratory 18 18 Rate Blood Pressure 147/65 Blood Pressure 154/80 [Right] O2 Sat by Pulse 94 92 Oximetry General appearance: Present: no acute distress, well-nourished - EENT Eyes: PERRL, EOM intact Ears: bilateral: normal - Neck Neck: supple, normal ROM - Respiratory Respiratory effort: normal Respiratory: bilateral: CTA - Cardiovascular Rhythm: regular Heart Sounds: Present: S1 & S2. Absent: gallop, rub Extremities: pulses intact, No edema, normal color, Full ROM - Gastrointestinal General gastrointestinal: Present: soft, non-tender, non-distended, normal bowel sounds - Genitourinary Female genitourinary: normal - Integumentary Integumentary: clear, warm, dry - Musculoskeletal Musculoskeletal: 1, strength equal bilaterally - Neurologic Neurologic: moves all extremities - Psychiatric Psychiatric: memory intact, appropriate mood/affect, intact judgment & insight - Labs CBC & Chem 7: 09/03/17 05:46 09/03/17 05:46 Labs: Abnormal lab results 09/03/17 09/03/17 09/03/17 Range/Units 05:46 05:46 06:25 RBC 3.05 L (3.65-5.03) M/mm3 Hgb 8.3 L (10.1-14.3) gm/dl Hct 26.7 L (30.3-42.9) % MCH 27 L (28-32) pg RDW 20.4 H (13.2-15.2) % Lymph % (Auto) 10.1 L (13.4-35.0) % [place] % (Auto) 7.7 H (0.0-7.3) % Lymph # 0.7 L (1.2-5.4) K/mm3 Seg Neutrophils % 77.6 H (40.0-70.0) % Chloride 111.2 H (98-107) mmol/L Carbon Dioxide 18 L (22-30) mmol/L BUN 38 H (7-17) mg/dL Creatinine 3.4 H (0.7-1.2) mg/dL Glucose 130 H (65-100) mg/dL POC Glucose 145 H (70-105) Calcium 7.7 L (8.4-10.2) mg/dL Albumin 3.1 L (3.9-5) g/dL 09/03/17 09/03/17 Range/Units 11:43 16:36 RBC (3.65-5.03) M/mm3 Hgb (10.1-14.3) gm/dl Hct (30.3-42.9) % MCH (28-32) pg RDW (13.2-15.2) % Lymph % (Auto) (13.4-35.0) % [place] % (Auto) (0.0-7.3) % Lymph # (1.2-5.4) K/mm3 Seg Neutrophils % (40.0-70.0) % Chloride (98-107) mmol/L Carbon Dioxide (22-30) mmol/L BUN (7-17) mg/dL Creatinine (0.7-1.2) mg/dL Glucose (65-100) mg/dL POC Glucose 195 H 157 H (70-105) Calcium (8.4-10.2) mg/dL Albumin (3.9-5) g/dL
[2017-09-04 08:09] LABS: Basophils % (Auto) 0.4 % (0.0-1.8); Eosinophils # (Auto) 0.3 K/mm3 (0.0-0.4); Eosinophils % (Auto) 5.2 % (0.0-4.3); Hematocrit 28.6 % (30.3-42.9); Hemoglobin 9.1 gm/dl (10.1-14.3); Lymphocytes # (Auto) 0.8 K/mm3 (1.2-5.4); Lymphocytes % (Auto) 16.2 % (13.4-35.0); Mean Corpuscular HGB Conc 32 % (30-34); Mean Corpuscular Hemoglobin 28 pg (28-32); Mean Corpuscular Volume 87 fl (79-97); Monocytes # (Auto) 0.5 K/mm3 (0.0-0.8); Platelet Count 177 K/mm3 (140-440); Red Blood Count 3.28 M/mm3 (3.65-5.03); Red Cell Distribution Width 20.1 % (13.2-15.2)
[2017-09-04 08:34] LABS: Albumin 3.3 g/dL (3.9-5); Calcium 8.1 mg/dL (8.4-10.2)
[2017-09-04 08:41] VITALS: BP 197/95
[2017-09-04] MEDS: HumaLOG SUB-Q SCH ×2 (09:02→11:16)
--- NOTE | 2017-09-04 09:50 | Progress Note ---
Assessment and Plan Impression: * Acute kidney injury on stage IV chronic kidney disease * Hyperkalemia - improved s/p medical management * Pulmonary edema --TTE LVEF 50-55% * Hypoglycemia * Type II DM * Hypertension * Metabolic acidosis * Mild pulmonary hypertension Plan: * Patient remains on 3L supplemental oxygen (she does not wear oxygen at home; states she required oxygen temporarily 2 years ago following PNA) w/ crackles on exam - shall increase the dose of her Lasix to 40 mg twice a day * Restrict dietary K intake * Glycemic control per team * Avoid potential nephrotoxins * Dose medications for renal function * Continue oral sodium bicarbonate * Okay to Discharge from renal standpoint with close outpatient follow-up Subjective Date of service: 09/04/17 Principal diagnosis: Hypoglycemia induced coma Interval history: Patient is comfortable today. Still has some shortness of breath which is stable. Ankle edema seems to be improving. No nausea or vomiting Objective - Vital Signs Vital signs: Vital Signs - 12hr 09/03/17 09/03/17 09/04/17 22:00 22:59 00:15 Temperature 98.4 F Pulse Rate 80 70 71 Pulse Rate [ Apical] Respiratory 18 Rate Blood Pressure 147/65 148/71 Blood Pressure [Right] O2 Sat by Pulse 92 96 Oximetry 09/04/17 09/04/17 09/04/17 06:04 08:39 09:07 Temperature 98.0 F 97.7 F Pulse Rate 64 68 68 Pulse Rate [ Apical] Respiratory 18 16 Rate Blood Pressure 163/78 Blood Pressure 197/95 [Right] O2 Sat by Pulse 99 93 Oximetry 09/04/17 09:08 Temperature Pulse Rate Pulse Rate [ 68 Apical] Respiratory 18 Rate Blood Pressure Blood Pressure [Right] O2 Sat by Pulse Oximetry - General Appearance General appearance: well-developed, well-nourished, appears stated age EENT: PERRL, mucous membranes moist Neck: no JVD, no thyromegaly Respiratory: Present: Rales (fine basal crackles) Cardiology: regular, normal heart rate, S1S2, no murmurs Gastrointestinal: normal, normoactive bowel sounds Integumentary: other (trace edema) - Lab 09/04/17 07:10 09/04/17 07:10 Most recent lab results Calcium 8.1 mg/dL (8.4-10.2) L 09/04/17 07:10
--- NOTE | 2017-09-04 09:50 | Discharge Summary ---
Providers - Providers Date of Admission: 08/30/17 13:34 Date of discharge: 09/04/17 Attending physician: GERALD JOE 08/30/17 09:29 Consult to Physician [CONS] Urgent Comment: Consulting Provider: KALIE DENISE Physician Instructions: Reason For Exam: CHF CRF HyperK Primary care physician: DAR HARDIN Hospitalization Reason for admission: hypoglycemic come, acute on CKD stage 5 form ranl tubular necrosis Condition: Stable Pertinent studies: CXR and Nl ECHO with EF of 50-55% Procedures: none Hospital course: Pt is a 62-year-old female whose blood suagr was dfound to be in the 300s at home. She called her daughter to adminiter 15 units of insulin. Thereafter she became dizzy and passed out after blood sugar suddenly dropped to 25. EMS was called. Per EMS patient was given a double dose of insulin by accident by her family members. EMS unable to obtain IV or give any type of D50. Patient has a history of congestive heart failure hypertension and diabetes. Last blood sugar by EMS is 42. On arrival to the ED, D50 was given. Patient became responsive but lethargic. Patient was arousable. Right EJ was started by ER and pt given ampules of D50. Sugar at this time is 209. Pt subsequently became alert and orientd x 4. pt was also noted for have abnormal kidney function. . Disposition: DC-01 TO HOME OR SELFCARE Time spent for discharge: 35 mins - Discharge Diagnoses (1) Anemia Status: Acute (2) Hyperkalemia Status: Acute (3) Acute exacerbation of CHF (congestive heart failure) Status: Acute Qualifiers: Qualified Code(s): I50.33 - Acute on chronic diastolic (congestive) heart failure (4) Acute on chronic renal failure Status: Acute Core Measure Documentation - Palliative Care Palliative Care/ Comfort Measures: Not Applicable - Core Measures Any of the following diagnoses?: none Exam - Constitutional Vitals: Temp Pulse Resp BP Pulse Ox 97.7 F 68 18 197/95 93 09/04/17 08:39 09/04/17 09:08 09/04/17 09:08 09/04/17 08:39 09/04/17 08:39 General appearance: Present: no acute distress, well-nourished - EENT Eyes: Present: PERRL - Neck Neck: Present: supple, normal ROM - Respiratory Respiratory effort: normal Respiratory: bilateral: CTA - Cardiovascular Heart Sounds: Present: S1 & S2. Absent: rub, click - Extremities Extremities: pulses symmetrical, No edema Peripheral Pulses: within normal limits - Abdominal General gastrointestinal: Present: soft, non-tender, non-distended, normal bowel sounds - Integumentary Integumentary: Present: clear, warm, dry - Musculoskeletal Musculoskeletal: gait normal, strength equal bilaterally - Psychiatric Psychiatric: appropriate mood/affect, intact judgment & insight - Neurologic Neurologic: CNII-XII intact, moves all extremities Plan Activity: advance as tolerated, fall precautions Weight Bearing Status: Non-Weight Bearing Diet: diabetic Follow up with: DAR HARDIN MD [Primary Care Provider] - 3-5 Days Prescriptions: amLODIPine [Norvasc] 10 mg PO DAILY #30 tablet Aspirin [Aspirin BABY CHEW TAB] 81 mg PO QDAY #30 tab.chew AtorvaSTATin [Lipitor] 20 mg PO QHS #30 tablet Carvedilol [Coreg] 25 mg PO BID #60 tablet cloNIDine [Catapres] 0.1 mg PO BID #60 tablet Furosemide [Lasix TAB] 20 mg PO QDAY PRN #30 tablet PRN Reason: Swelling Insulin NPH/Regular [NovoLIN 70/30] 15 unit SUB-Q QAM #100 units Insulin NPH/Regular [NovoLIN 70/30] 15 unit SQ QPM #100 units Sodium Bicarbonate 650 mg PO BID #60 tablet
[2017-09-04] MEDS ORDERED: LASIX PO SCH (10:00)
[2017-09-04] MEDS: SODIUM BICARBONATE PO SCH (11:06)
[2017-09-04] MEDS: BABY ASPIRIN PO SCH (11:10)
[2017-09-04] MEDS: NORVASC PO SCH (11:10)
[2017-09-04] MEDS: COREG PO SCH (11:10)
[2017-09-04] MEDS: KENALOG TP SCH ×2 (11:11→11:12)
[2017-09-04] MEDS: LOVENOX SUB-Q SCH (11:15)
[2017-09-04] MEDS: CATAPRES PO SCH (11:19)
== END 2017-09-04 15:01 | disposition home or self-care (01) | DRG 683 ==
LOC: ED 04:45 → 4A 13:34
PROVIDERS: ADMIT Family Medicine; ATTEND Family Medicine
PROC: 3E0234Z Introduction of Serum, Toxoid and Vaccine into Muscle, Percutaneous Approach (ICD-10-PCS; principal; 2017-08-31)
DX: N17.9 Acute kidney failure, unspecified (principal); I13.2 Hypertensive heart and chronic kidney disease with heart failure and with stage 5 chronic kidney disease, or end stage renal disease; E87.2 Acidosis; E11.649 Type 2 diabetes mellitus with hypoglycemia without coma; I50.9 Heart failure, unspecified; D64.9 Anemia, unspecified; E87.5 Hyperkalemia; N18.5 Chronic kidney disease, stage 5; I27.20 Pulmonary hypertension, unspecified; E11.22 Type 2 diabetes mellitus with diabetic chronic kidney disease; Z88.6 Allergy status to analgesic agent; Z87.442 Personal history of urinary calculi; Z90.49 Acquired absence of other specified parts of digestive tract; Z23 Encounter for immunization; Z79.899 Other long term (current) drug therapy
CPT/HCPCS: 36415; 71045; 80048; 80053; 82962; 84484; 85007; 85025; 85610; 90686; 93005; 93010; 93306; 94760; 96372; 96374; 96375; 99291; A9270-GY; J0610; J1650; J1815; J1940

== ENCOUNTER 2018-03-16 15:05 | Inpatient (IN) | payer OTHER ==
[2018-03-16 15:59] LABS: Hematocrit 33.1 % (30.3-42.9); Hemoglobin 10.3 gm/dl (10.1-14.3); Mean Corpuscular HGB Conc 31 % (30-34); Mean Corpuscular Hemoglobin 28 pg (28-32); Mean Corpuscular Volume 91 fl (79-97); Platelet Count 151 K/mm3 (140-440); Red Blood Count 3.65 M/mm3 (3.65-5.03); Red Cell Distribution Width 18.7 % (13.2-15.2)
[2018-03-16 16:03] LABS: INR 1.22 (0.87-1.13)
[2018-03-16 16:04] LABS: Partial Thromboplastin Time 26.9 Sec. (24.2-36.6)
[2018-03-16 16:13] LABS: Albumin 4.3 g/dL (3.9-5); Calcium 7.9 mg/dL (8.4-10.2)
[2018-03-16] MEDS ORDERED: PROVENTIL IH ONE ×2 (16:34→18:46)
[2018-03-16] MEDS ORDERED: HumuLIN R IV ONE (16:34)
[2018-03-16] MEDS ORDERED: D50W (25GM) Syringe IV ONE (16:34)
--- NOTE | 2018-03-16 17:22 | Emergency Department Report ---
ED General Adult HPI - General Chief complaint: Medical Clearance Stated complaint: KIDNEY FAILURE Time Seen by Provider: 03/16/18 16:33 Source: patient Mode of arrival: Wheelchair Limitations: No Limitations - History of Present Illness Initial comments: Patient is a 63-year-old female past medical history of chronic kidney disease who presents with hyperkalemia. Patient was getting blood work and it was noted that her potassium was elevated. She was told to calm to the emergency department for further evaluation. She is a chronic kidney disease patient who can still make urine. She is not on dialysis. She is a patient of Dr. Peguero who wanted her to come to the emergency department for evaluation if she needs hemodialysis. Patient denies being in any pain except for lower back pain which is chronic the pain as a 4 out of 10 this a sore type pain doesn't radiate anywhere. Nothing makes it better and nothing makes it worse. - Related Data Home Medications Medication Instructions Recorded Confirmed Last Taken cloNIDine [Catapres] 0.1 mg PO TID 03/16/18 03/16/18 Unknown Previous Rx's Medication Instructions Recorded Last Taken Type Aspirin [Aspirin BABY CHEW TAB] 81 mg PO QDAY #30 tab.chew 09/04/17 Unknown Rx AtorvaSTATin [Lipitor] 20 mg PO QHS #30 tablet 09/04/17 Unknown Rx Carvedilol [Coreg] 25 mg PO BID tablet 09/04/17 Unknown Rx Carvedilol [Coreg] 25 mg PO BID #60 tablet 09/04/17 Unknown Rx Furosemide [Lasix TAB] 20 mg PO QDAY PRN #30 tablet 09/04/17 Unknown Rx Insulin NPH/Regular [NovoLIN 70/30] 15 unit SQ QPM #100 units 09/04/17 Unknown Rx Insulin NPH/Regular [NovoLIN 70/30] 15 unit SUB-Q QAM #100 units 09/04/17 Unknown Rx Sodium Bicarbonate 650 mg PO BID #60 tablet 09/04/17 Unknown Rx Triamcinolone 0.1% [Kenalog 0.1% 1 applic TP TID tube 09/04/17 Unknown Rx CREAM] amLODIPine [Norvasc] 10 mg PO DAILY #30 tablet 09/04/17 Unknown Rx Allergies Allergy/AdvReac Type Severity Reaction Status Date / Time strawberry AdvReac Rash Verified 09/01/17 15:06 ED Review of Systems ROS: Stated complaint: KIDNEY FAILURE Other details as noted in HPI Constitutional: denies: chills, fever Eyes: denies: eye pain, eye discharge, vision change ENT: denies: ear pain, throat pain Respiratory: denies: cough, shortness of breath, wheezing Cardiovascular: denies: chest pain, palpitations Endocrine: no symptoms reported Gastrointestinal: denies: abdominal pain, nausea, diarrhea Genitourinary: denies: urgency, dysuria, discharge Musculoskeletal: denies: back pain, joint swelling, arthralgia Skin: denies: rash, lesions Neurological: denies: headache, weakness, paresthesias Psychiatric: denies: anxiety, depression Hematological/Lymphatic: denies: easy bleeding, easy bruising ED Past Medical Hx - Past Medical History Hx Hypertension: Yes Hx Heart Attack/AMI: No Hx Congestive Heart Failure: Yes (home O2L) Hx Diabetes: Yes Hx Deep Vein Thrombosis: No Hx Liver Disease: No Hx Renal Disease: Yes Hx Kidney Stones: Yes Hx Asthma: No Hx COPD: No Additional medical history: Glaucoma - Surgical History Hx Coronary Stent: No Hx Pacemaker: No Hx Internal Defibrillator: No Hx Cholecystectomy: Yes - Social History Smoking Status: Unknown if ever smoked Substance Use Type: None - Medications Home Medications: Home Medications Medication Instructions Recorded Confirmed Last Taken Type Aspirin [Aspirin BABY CHEW TAB] 81 mg PO QDAY #30 tab.chew 09/04/17 03/16/18 Unknown Rx AtorvaSTATin [Lipitor] 20 mg PO QHS #30 tablet 09/04/17 03/16/18 Unknown Rx Carvedilol [Coreg] 25 mg PO BID tablet 09/04/17 03/16/18 Unknown Rx Carvedilol [Coreg] 25 mg PO BID #60 tablet 09/04/17 03/16/18 Unknown Rx Furosemide [Lasix TAB] 20 mg PO QDAY PRN #30 tablet 09/04/17 03/16/18 Unknown Rx Insulin NPH/Regular [NovoLIN 70/30] 15 unit SQ QPM #100 units 09/04/17 03/16/18 Unknown Rx Insulin NPH/Regular [NovoLIN 70/30] 15 unit SUB-Q QAM #100 units 09/04/17 Unknown Rx Sodium Bicarbonate 650 mg PO BID #60 tablet 09/04/17 03/16/18 Unknown Rx Triamcinolone 0.1% [Kenalog 0.1% 1 applic TP TID tube 09/04/17 03/16/18 Unknown Rx CREAM] amLODIPine [Norvasc] 10 mg PO DAILY #30 tablet 09/04/17 03/16/18 Unknown Rx cloNIDine [Catapres] 0.1 mg PO TID 03/16/18 03/16/18 Unknown History ED Physical Exam - General Limitations: No Limitations General appearance: alert, in no apparent distress - Head Head exam: Present: atraumatic, normocephalic - Eye Eye exam: Present: normal appearance - ENT ENT exam: Present: mucous membranes moist - Neck Neck exam: Present: normal inspection - Respiratory Respiratory exam: Present: normal lung sounds bilaterally. Absent: respiratory distress - Cardiovascular Cardiovascular Exam: Present: regular rate, normal rhythm. Absent: systolic murmur, diastolic murmur, rubs, gallop - GI/Abdominal GI/Abdominal exam: Present: soft, normal bowel sounds - Extremities Exam Extremities exam: Present: normal inspection - Back Exam Back exam: Present: normal inspection - Neurological Exam Neurological exam: Present: alert, oriented X3 - Psychiatric Psychiatric exam: Present: normal affect, normal mood - Skin Skin exam: Present: warm, dry, intact, normal color. Absent: rash ED Course Vital Signs 03/16/18 03/16/18 15:12 17:50 Temperature 97.9 F Pulse Rate 68 74 Respiratory 18 16 Rate Blood Pressure 124/79 Blood Pressure 136/67 [Left] O2 Sat by Pulse 100 96 Oximetry - Consultations Consultation #1: 03/16/18 18:[address] Peguero he recommends 150 mEq of D5 water with bicarbonate 120 mils per hour. He states that he will see the patient and to make the patient nothing by mouth by midnight in case the patient gets hemodialysis tomorrow. - EJ/Peripheral Line Neck R Time Out Performed: Yes Indications: nurses unable to establis Skin Cleansed in Sterile Fashion: Yes Size: 18 Dressing Placed: Tegaderm Patient Tolerated Procedure: well ED Medical Decision Making - Lab Data Result diagrams: 03/16/18 15:26 03/16/18 15:26 Lab Results 03/16/18 03/16/18 03/16/18 Range/Units 15:26 15:26 15:43 WBC 6.6 (4.5-11.0) K/mm3 RBC 3.65 (3.65-5.03) M/mm3 Hgb 10.3 (10.1-14.3) gm/dl Hct 33.1 (30.3-42.9) % MCV 91 (79-97) fl MCH 28 (28-32) pg MCHC 31 (30-34) % RDW 18.7 H (13.2-15.2) % Plt Count 151 (140-440) K/mm3 PT 16.1 H (12.2-14.9) Sec. INR 1.22 H (0.87-1.13) APTT 26.9 (24.2-36.6) Sec. Sodium 129 L (137-145) mmol/L Potassium 6.5 H* (3.6-5.0) mmol/L Chloride 101.4 (98-107) mmol/L Carbon Dioxide 12 L (22-30) mmol/L Anion Gap 22 mmol/L BUN 102 H (7-17) mg/dL Creatinine 5.9 H (0.7-1.2) mg/dL Estimated GFR 9 ml/min BUN/Creatinine Ratio 17 % Glucose 333 H (65-100) mg/dL POC Glucose (70-105) Calcium 7.9 L (8.4-10.2) mg/dL Magnesium (1.7-2.3) mg/dL Total Bilirubin 0.20 (0.1-1.2) mg/dL AST 15 (5-40) units/L ALT 28 (7-56) units/L Alkaline Phosphatase 61 (35-129) units/L Total Protein 8.2 (6.3-8.2) g/dL Albumin 4.3 (3.9-5) g/dL Albumin/Globulin Ratio 1.1 % 03/16/18 03/16/18 Range/Units 15:43 18:10 WBC (4.5-11.0) K/mm3 RBC (3.65-5.03) M/mm3 Hgb (10.1-14.3) gm/dl Hct (30.3-42.9) % MCV (79-97) fl MCH (28-32) pg MCHC (30-34) % RDW (13.2-15.2) % Plt Count (140-440) K/mm3 PT (12.2-14.9) Sec. INR (0.87-1.13) APTT (24.2-36.6) Sec. Sodium (137-145) mmol/L Potassium (3.6-5.0) mmol/L Chloride (98-107) mmol/L Carbon Dioxide (22-30) mmol/L Anion Gap mmol/L BUN (7-17) mg/dL Creatinine (0.7-1.2) mg/dL Estimated GFR ml/min BUN/Creatinine Ratio % Glucose (65-100) mg/dL POC Glucose 304 H (70-105) Calcium (8.4-10.2) mg/dL Magnesium 2.70 H (1.7-2.3) mg/dL Total Bilirubin (0.1-1.2) mg/dL AST (5-40) units/L ALT (7-56) units/L Alkaline Phosphatase (35-129) units/L Total Protein (6.3-8.2) g/dL Albumin (3.9-5) g/dL Albumin/Globulin Ratio % - EKG Data -: EKG Interpreted by Pa - EKG Data 03/16/18 18:40 History shows sinus rhythm right axis deviation no ST segment elevation or T- wave inversion. - Radiology Data Radiology results: report reviewed Chest x-ray: Shows bilateral interstitial densities concerning for CHF. - Medical Decision Making Chief medical diagnosis: Hyperkalemia Differential medical diagnosis: Pulmonary edema, uremia I will get CBC, BMP, EKG, chest x-ray, IV insulin, albuterol Due to patient's elevated potassium A she will need to be admitted to the hospital discussed plan with Dr. Peguero I will admit the patient to the hospitalist service. Discussed plan with patient patient agrees with plan. Critical Care Time: Yes (60) Critical care time in (mins) excluding proc time.: 60 Critical care attestation.: If time is entered above; I have spent that time in minutes in the direct care of this critically ill patient, excluding procedure time. Critical care time spent at patient's bedside 30 minutes Critical care time spent with consultants 10 minutes Critical care time spent with patient's family 10 minutes Critical care time spent laboratory findings 10 minutes. ED Disposition Clinical Impression: Hyperkalemia Chronic kidney disease Qualifiers: Chronic kidney disease stage: stage 4 (severe) Qualified Code(s): N18.4 - Chronic kidney disease, stage 4 (severe) Disposition: DC-09 OP ADMIT IP TO THIS HOSP Is pt being admited?: Yes Does the pt Need Aspirin: No Condition: Stable Referrals: PRIMARY CARE, [Primary Care Provider] - 3-5 Days
--- NOTE | 2018-03-16 18:30 | XRay Report ---
FINAL REPORT EXAM: XR CHEST 1V AP HISTORY: cough TECHNIQUE: Frontal portable view of the chest Comparison: None FINDINGS: There is bilateral hypoinflation. There is prominence of the interstitial markings in both lungs which may represent changes of interstitial edema. There appear to be patchy areas of pulmonary consolidation in both lung bases. Atelectasis versus infiltrates. There is no evidence of pneumothorax or pleural fluid collection. The cardiac silhouette is enlarged. There is prominence of the pulmonary venous vasculature suggestive of pulmonary venous congestion. The bony structures are notable for the appearance of degenerative change of the shoulder joints bilaterally. Visualization detail of the thoracic spine is limited. IMPRESSION: 1. Hypoinflation. 2. Bilateral interstitial and airspace process. Infectious and noninfectious etiologies, to include CHF, need to be considered. 3. Enlarged cardiac silhouette. 4. Evidence of pulmonary venous congestion. 5. Degenerative change shoulder joints bilaterally.
[2018-03-16] MEDS ORDERED: SODIUM BICARBONATE 150 MEQ in D5W 1,000 ML IV ONE (19:00)
[2018-03-16] MEDS ORDERED: KIONEX PO ONE (21:58)
[2018-03-16] MEDS ORDERED: CALCIUM CHLORIDE IVP ONE (21:59)
[2018-03-16] MEDS ORDERED: CALCIUM CHLORIDE 1,000 MG in NACL 0.9% 100 ML IV ONE (22:00)
--- NOTE | 2018-03-16 22:08 | Event Note ---
Patient was sent to the emergency room Labs were reviewed I have ordered for calcium She needs to get albuterol nebulized Patient has received D50 and insulin Will also give Kayexalate Patient needs to be admitted to the hospital medicine I have written the communication order
[2018-03-16] MEDS ORDERED: D50W (25GM) Syringe IV PRN (22:09)
[2018-03-16] MEDS ORDERED: ZOFRAN IV PRN (22:15)
[2018-03-16] MEDS ORDERED: PROVENTIL IH PRN (22:17)
[2018-03-16] MEDS ORDERED: LASIX PO PRN (22:18)
[2018-03-16 23:18] LABS: Calcium 7.8 mg/dL (8.4-10.2)
[2018-03-17] MEDS: TYLENOL PO PRN ×2 (00:47→19:43)
--- NOTE | 2018-03-17 05:34 | History and Physical Report ---
CHIEF COMPLAINT: Elevated potassium level and worsening chronic kidney disease. HISTORY OF PRESENT ILLNESS: The patient is a 63-year-old female who has chronic kidney disease and has been doing blood work and being followed by the medical office receptionist assistant and the patient did some blood work that showed elevated potassium level and worsening chronic kidney disease. The patient was asked by the Production Cost Estimator, Dr. Peguero to go to the Emergency Room for further evaluation. There is no history of shortness of breath. No history of nausea or vomiting. No history of skin rashes or itching, and also no history of chest pain; however, the patient complained of low back pain, which is chronic. The patient was seen in the Emergency Room. PAST MEDICAL HISTORY: Pertinent for hypertension, diabetes mellitus, chronic kidney disease, and glaucoma. PAST SURGICAL HISTORY: Pertinent for cholecystectomy. FAMILY HISTORY: Noncontributory. SOCIAL HISTORY: The patient does not smoke, does not drink alcohol, and does not use illicit drugs. MEDICATIONS: The patient is on aspirin 81 mg daily, Lipitor 20 mg by mouth at bedtime, Coreg 25 mg by mouth twice daily, Lasix 20 mg by mouth daily, insulin 70/30, 15 units in the evening, and 15 units in the morning, bicarbonate 15 mg by mouth twice daily, Kenalog 0.1% cream one application three times daily, Norvasc 10 mg by mouth daily, Catapres 0.1 mg by mouth 3 times daily. ALLERGIES: The patient is allergic to STRAWBERRY. REVIEW OF SYSTEMS: CONSTITUTIONAL: There is no fever, no chills, no diaphoresis. HEENT: There is no headache or sore throat. CARDIOVASCULAR SYSTEM: There is no chest pain or orthopnea. RESPIRATORY: There is no shortness of breath or cough. GASTROINTESTINAL SYSTEM: There is no nausea, no vomiting, no abdominal pain, diarrhea or constipation. NEUROLOGICAL SYSTEM: There is no numbness, no dizziness, no altered mental status. MUSCULOSKELETAL SYSTEM: Low back pain noted, no joint swelling. DERMATOLOGICAL SYSTEM: There is no skin rash or itching. GENITOURINARY SYSTEM: There is no dysuria, hematuria or flank pain. Rest of system review is normal. PHYSICAL EXAMINATION: GENERAL: At the time of exam, the patient was found to be alert and oriented x 3, not in acute distress. VITAL SIGNS: At the initial time of presentation shows temperature of 97.9 degrees Fahrenheit, pulse of 68, respiration 18, blood pressure 124/79, O2 sat of 100% on room air. HEENT: Exam show pupils to be equal, round, and reactive to light and accommodation. Extraocular muscles are intact. NECK: Supple with no JVD or carotid bruit. CARDIOVASCULAR SYSTEM: Show normal first and second heart sounds with no gallops or murmurs. RESPIRATORY SYSTEM: Show good air entry on both sides of the lungs with no abnormal breath sounds. GASTROINTESTINAL SYSTEM: Show abdomen to be full, soft, nontender with no organomegaly or rigidity. NEUROLOGICAL: Shows no focal deficit. MUSCULOSKELETAL SYSTEM: Show no joint swelling or tenderness. DERMATOLOGICAL SYSTEM: Show no skin rash. GENITOURINARY SYSTEM: Showing no costovertebral angle tenderness. PERTINENT LABORATORY DATA AND IMAGING STUDIES: The patient had chest x-ray done that shows hypo-inflation with bilateral interstitial and airspace process and Radiology said that infections are infectious in etiology to include CHF need to be considered. There is next finding of enlarged cardiac silhouette and evidence of pulmonary venous congestion and also there is finding of degenerative changes in the shoulder joints on both sides. Lab results: The patient had CBC done that shows normal white count, normal hemoglobin, and normal hematocrit. Coagulation studies were unremarkable. The patient's chemistry showed low sodium of 129 with elevated potassium level of 6.5, and elevated BUN of 102, elevated creatinine of 5.9, and high blood glucose of 333. The patient's calcium level is low with a value of 7.9 and magnesium level is high with a value of 2.7. DIAGNOSES: 1. Chronic kidney Disease. 2. Hyperkalemia. CARE OF PLAN: 1. The patient will be admitted to telemetry. 2. The patient will continue in Nephrology consult with Dr. Sudhir Sullivan. 3. The patient's diet will be consistent carbohydrate, low sodium diet. 4. The patient will have basic metabolic panel checked in the morning of 03/17/2018. 5. The patient will have calcium chloride as ordered by the medical office receptionist assistant and has already received treatment for D50, one amp and regular insulin intravenous and also the patient will have Kayexalate 60 g by mouth as ordered by the Production Cost Estimator. The patient will be on intravenous Zofran 4 mg every 8 hours as needed for nausea and vomiting, and has already received albuterol nebulizer for the treatment of hyperkalemia and will be on albuterol nebulizer 2.5 mg every 6 hours as needed for shortness of breath. 5. The patient will be on heparin 5000 units subcutaneous every 12 hours for deep venous thrombosis prophylaxis and will be on home medication as shown in the medication reconciliation section. The patient will be on Accu-Chek before noon and at bedtime followed by low dose sliding scale using regular insulin coverage. JOB# [id number] [facility]
[2018-03-17 06:11] LABS: Calcium 7.9 mg/dL (8.4-10.2)
[2018-03-17] MEDS: HumuLIN R SUB-Q SCH ×4 (07:30→22:00)
[2018-03-17] MEDS: KENALOG TP SCH ×2 (08:00→14:00)
--- NOTE | 2018-03-17 08:57 | Consultation ---
History of Present Illness - History of Present Illness Thank you for the consultation patient was evaluated today. Source of information; History of presenting illness; Patient is a pleasant 64-year-old -Slovak female who presented to our office yesterday with shortness of breath worsening renal failure recently was treated with steroid, for possible COPD flare, patient was noted to be markedly acidotic and she was carrying the oxygen tank with her, her overall health has been declining fairly rapidly. She was sent to the emergency room where she was noted to have persistent acidosis, and severe hyperkalemia for which she was treated medically, and was admitted to initiate renal replacement therapy. Patient is currently established in our clinic and lives in [facility] and she chooses to follow up with our group, and has shown interest in going to [place] [facility] for continuity of care Past medical history significant for: Chronic kidney disease Hypertension Hyperkalemia Metabolic acidosis Diabetes mellitus type 2 current allergies: Weikert medications: Reviewed Social history: History of any alcohol drug tobacco use Family history: Noncontributory paranoid and bizarre Review of system: Positive for progressive fatigue poor appetite feeling cold tired Shortness of breath which has been progressive in nature currently oxygen dependent patient was markedly acidotic Leg swelling some no worse No chest pain pressure Overall gradual decline in health over the last several months All other review of system negative Labs and x-rays: Were reviewed from the current chart Physical examination General: No acute distress HEENT: Oral mucosa moist no pharyngeal erythema pallor present patient has uremic odor Neck: Supple no evidence of any thyromegaly trachea midline no JVD Chest: Clear to auscultation no crackles are also wheezes anteriorly Heart: Regular rate and rhythm S1-S2 heard no S3-S4 Abdomen: Soft nontender no renal bruit no CVA tenderness no suprapubic fullness no organomegaly Extremity: 1+ edema dry skin no peripheral cyanosis pulses palpable Neurological: Alert awake follows command grossly nonfocal examination Back: Nontender thoracolumbar spine Musculoskeletal: No joint effusion noted Skin: No petechial rash/noted Assessment and plan End-stage renal disease: Patient is in need for immediate renal replacement therapy due to hyperkalemia severe acidosis shortness of breath some peripheral edema she presented to the clinic with these symptoms and was treated with steroidal outpatient setting currently is also oxygen dependent I believe most of her shortness of breath is resulting from severe acidosis Moderately severe hyperkalemia medically treated medically. Patient is in need for immediate renal replacement therapy which will be initiated with a central venous catheter today patient needs to have a fistula created during this admission, she will be high risk for bacteremia and line sepsis Anemia in end-stage renal disease: To monitor and follow erythropoietin as needed Secondary hyperparathyroidism: Check phosphorus PTH and vitamin D level Shortness of breath most likely resulting from acidosis, patient will also need an echocardiogram as well as a pulmonary evaluation Dialysis status: Patient needs to be in high protein diet and dietary consultation is requested Nature and severity of renal-related issues were discussed with patient, all questions were answered and simple Nauruan Patient does have good understanding about renal-related issues. Counseled and educated to get further education from [employer] and related links, and upon discharge to make a follow-up appointment in the office We'll continue to follow and make recommendations from renal standpoint. If you have any questions please feel free to contact me at [phone] Thank you for the consultation. Medications and Allergies Allergies Allergy/AdvReac Type Severity Reaction Status Date / Time strawberry AdvReac Rash Verified 09/01/17 15:06 Home Medications Medication Instructions Recorded Confirmed Last Taken Type Aspirin [Aspirin BABY CHEW TAB] 81 mg PO QDAY #30 tab.chew 09/04/17 03/16/18 Unknown Rx AtorvaSTATin [Lipitor] 20 mg PO QHS #30 tablet 09/04/17 03/16/18 Unknown Rx Carvedilol [Coreg] 25 mg PO BID tablet 09/04/17 03/16/18 Unknown Rx Carvedilol [Coreg] 25 mg PO BID #60 tablet 09/04/17 03/16/18 Unknown Rx Furosemide [Lasix TAB] 20 mg PO QDAY PRN #30 tablet 09/04/17 03/16/18 Unknown Rx Insulin NPH/Regular [NovoLIN 70/30] 15 unit SQ QPM #100 units 09/04/17 03/16/18 Unknown Rx Insulin NPH/Regular [NovoLIN 70/30] 15 unit SUB-Q QAM #100 units 09/04/17 Unknown Rx Sodium Bicarbonate 650 mg PO BID #60 tablet 09/04/17 03/16/18 Unknown Rx Triamcinolone 0.1% [Kenalog 0.1% 1 applic TP TID tube 09/04/17 03/16/18 Unknown Rx CREAM] amLODIPine [Norvasc] 10 mg PO DAILY #30 tablet 09/04/17 03/16/18 Unknown Rx cloNIDine [Catapres] 0.1 mg PO TID 03/16/18 03/16/18 Unknown History Active Meds: Active Medications Acetaminophen (Tylenol) 650 mg PO Q4H PRN PRN Reason: Fever >101 Last Admin: 03/17/18 00:47 Dose: 650 mg Albuterol (Proventil) 2.5 mg IH Q6H PRN PRN Reason: Shortness Of Breath Amlodipine Besylate (Norvasc) 10 mg PO DAILY [facility] Aspirin (Baby Aspirin) 81 mg PO QDAY TARSHA Atorvastatin Calcium (Lipitor) 20 mg PO QHS TARSHA Carvedilol (Coreg) 25 mg PO BID TARSHA Clonidine HCl (Catapres) 0.1 mg PO TID [facility] Dextrose (D50w (25gm) Syringe) 50 ml IV PRN PRN PRN Reason: Hypoglycemia Furosemide (Lasix) 20 mg PO QDAY PRN PRN Reason: Swelling Heparin Sodium (Porcine) (Heparin) 5,000 unit SUB-Q Q12HR [facility] Insulin Human Regular (Humulin R) 0 units SUB-Q AC TARSHA; Protocol Insulin Human Regular (Humulin R) 0 units SUB-Q QHS TARSHA; Protocol Ondansetron HCl (Zofran) 4 mg IV Q8H PRN PRN Reason: Nausea And Vomiting Triamcinolone Acetonide (Kenalog) 1 applic TP TID [facility] Exam - Vital Signs Vital signs: Vital Signs Temp Pulse Resp BP Pulse Ox 97.9 F 68 18 124/79 100 03/16/18 15:12 03/16/18 15:12 03/16/18 15:12 03/16/18 15:12 03/16/18 15:12 Results - Lab Results 03/16/18 15:26 03/17/18 05:12 Most recent lab results Calcium 7.9 mg/dL (8.4-10.2) L 03/17/18 05:12 Magnesium 2.70 mg/dL (1.7-2.3) H 03/16/18 15:43
[2018-03-17] MEDS ORDERED: NACL 0.9% 100 ML IV PRN (09:00)
[2018-03-17] MEDS: CATAPRES PO SCH ×3 (09:00→21:57)
[2018-03-17] MEDS ORDERED: COREG PO SCH (10:00)
[2018-03-17] MEDS: COREG PO SCH ×2 (10:00→21:56)
[2018-03-17] MEDS: HEPARIN SUB-Q SCH ×2 (10:00→22:00)
[2018-03-17] MEDS: NORVASC PO SCH (10:00)
[2018-03-17] MEDS: BABY ASPIRIN PO SCH (10:00)
[2018-03-17] MEDS ORDERED: HEPARIN/NS 5000 UNIT/500ML(CATH LAB) 500 ML IR ONE (10:33)
[2018-03-17] MEDS ORDERED: XYLOCAINE 1%/ EPI 1:100,000 INFILTRATI ONE (10:34)
[2018-03-17] MEDS ORDERED: NACL 0.9% 250ML 250 ML ONE (10:34)
--- NOTE | 2018-03-17 10:40 | Progress Note ---
Assessment and Plan Assessment and plan: 63-year-old woman with past medical history of chronic kidney disease, she was sent by her supervisor process testing and her blood work showed that her creatinine was trending upward that she have hyperkalemia Past medical history includes hypertension, diabetes, COPD and glaucoma. Hyperkalemia Has been medically treated, nephrology consult appreciated Chronic kidney disease with acute injury/htn nephropathy IV fluids, avoid nephrotoxins, further care per Nephrology planned for HD Hypertension, continue blood pressure meds, Diabetes or hypoglycemia Optimize insulin transportation History Interval history: Review of systems Constitutional: No fevers, no malaise, no joint pains CVS: No chest pain, no orthopnea, no dyspnea on exertion, no pedal edema GI: No abdominal pain, no diarrhea, no vomiting, no constipation Respiratory: No shortness of breath, no wheezing, no coughing Hospitalist Physical - Physical exam Narrative exam: General.: Appears well, no distress, nontoxic HEENT: Moist mucous membranes, extraocular muscles intact, no lymphadenopathy Neck: supple Cardiac: S1-S2 heard Lungs: clear to auscultation bilaterally Abdomen: soft , nontender, nondistended, bowel sounds positive Extremities: no edema clubbing or cyanosis Skin: no rash or lesions Neurologic: no gross focal deficits Psych: appropriate behavior, appropriate mood, corporative, judgment intact - Constitutional Vitals: Temp Pulse Resp BP Pulse Ox 97.8 F 75 16 156/78 97 03/17/18 07:22 03/17/18 07:22 03/17/18 07:22 03/17/18 07:22 03/17/18 07:22 Results - Labs CBC & Chem 7: 03/18/18 09:25 03/18/18 09:25 Labs: Laboratory Last Values WBC 6.6 K/mm3 (4.5-11.0) 03/16/18 15:26 RBC 3.65 M/mm3 (3.65-5.03) 03/16/18 15:26 Hgb 10.3 gm/dl (10.1-14.3) 03/16/18 15:26 Hct 33.1 % (30.3-42.9) 03/16/18 15:26 MCV 91 fl (79-97) 03/16/18 15:26 MCH 28 pg (28-32) 03/16/18 15:26 MCHC 31 % (30-34) 03/16/18 15:26 RDW 18.7 % (13.2-15.2) H 03/16/18 15:26 Plt Count 151 K/mm3 (140-440) 03/16/18 15:26 PT 16.1 Sec. (12.2-14.9) H 03/16/18 15:43 INR 1.22 (0.87-1.13) H 03/16/18 15:43 APTT 26.9 Sec. (24.2-36.6) 03/16/18 15:43 Sodium 135 mmol/L (137-145) L 03/17/18 05:12 Potassium 5.6 mmol/L (3.6-5.0) H 03/17/18 05:12 Chloride 104.4 mmol/L (98-107) 03/17/18 05:12 Carbon Dioxide 13 mmol/L (22-30) L 03/17/18 05:12 Anion Gap 23 mmol/L 03/17/18 05:12 BUN 104 mg/dL (7-17) H 03/17/18 05:12 Creatinine 6.0 mg/dL (0.7-1.2) H 03/17/18 05:12 Estimated GFR 9 ml/min 03/17/18 05:12 BUN/Creatinine Ratio 17 % 03/17/18 05:12 Glucose 319 mg/dL (65-100) H 03/17/18 05:12 POC Glucose 341 (70-105) H 03/17/18 05:42 Calcium 7.9 mg/dL (8.4-10.2) L 03/17/18 05:12 Magnesium 2.70 mg/dL (1.7-2.3) H 03/16/18 15:43 Total Bilirubin 0.20 mg/dL (0.1-1.2) 03/16/18 15:26 AST 15 units/L (5-40) 03/16/18 15:26 ALT 28 units/L (7-56) 03/16/18 15:26 Alkaline Phosphatase 61 units/L (35-129) 03/16/18 15:26 Total Protein 8.2 g/dL (6.3-8.2) 03/16/18 15:26 Albumin 4.3 g/dL (3.9-5) 03/16/18 15:26 Albumin/Globulin Ratio 1.1 % 03/16/18 15:26
[2018-03-17] MEDS ORDERED: SUBLIMAZE ONE (10:48)
[2018-03-17] MEDS ORDERED: VERSED ONE (10:48)
[2018-03-17] MEDS: HEPARIN 10,000 UNITS/10 ML ONE ×2 (11:50→11:51)
[2018-03-17] MEDS ORDERED: AFLURIA QUAD 2018-2019 SYRINGE IM ONE (12:00)
--- NOTE | 2018-03-17 12:24 | Operative Report ---
Operative Report Operative Report: Date of procedure: 03/17/2018 Pre-operative diagnosis: Acute on Chronic Renal Failure Post-operative diagnosis: Same Procedure(s): 1. Ultrasound-Guided Access Right Internal Vein 2. Placement of 23 cm GlidePath Permacath 3. Radiologic Supervision with Interpretation Surgeon: Harsh Fisher MD Data Science [employer] Iot Manager: None Anesthesia: Local EBL: Minimal Counts: Correct Complications: None Condition: Stable Findings: Successful placement of right IJ permacath. Specimen: None Indication: The patient is a 63-year-old female presented to the hospital with acute on chronic renal failure with hyperkalemia and shortness of breath. She is in need of permacath placement for urgent dialysis. She was given the risk, benefits, and alternative procedures and consented to the procedure. Description of Procedure: The patient was brought to the electrical laboratory technician and laid in supine position and his right neck and chest were prepped and draped in normal sterile fashion. Ultrasound was used to identify the right internal jugular vein and the overlying skin and soft tissue was anesthetized with lidocaine. A small stab incision was made and then the access needle was used ultrasound guidance in the right internal jugular vein. An 035 J-wire was advanced to the central venous system under fluoroscopic guidance. The tract was serially dilated up to a 16 Eritrean peel-away safety sheath and the inner cannula and wire removed. An exit site on the chest was then chosen and the presumed tunnel was anesthetized with lidocaine. A small stab incision was made on the chest and then the permacath was connected to the tunneler and pulled antegrade through the tunnel. The catheter was inserted into the safe sheath and safety sheath was pulled away. The catheter was positioned under fluoroscopy. Once in adequate position both ports were aspirated and flushed and then primed with the appropriate amount heparin. The neck incision was then closed with 4-0 Monocryl in interrupted subcuticular fashion and dressed with Surgicel. The catheters was dressed sterilely. Final fluoroscopy demonstrated the catheter was in excellent position without any evidence of pneumothorax. The patient tolerated the procedure well, all sponge needle and instrument counts were correct, the patient was taken to recovery in stable condition.
[2018-03-17 17:01] LABS: Hepatitis A Antibody IgM Non-Reactive (NonReactive); Hepatitis B Core IgM Non-Reactive (NonReactive); Hepatitis B Surface Antigen Non-Reactive (Negative); Hepatitis C Virus Antibody Non-Reactive (NonReactive)
[2018-03-18] MEDS: KENALOG TP SCH ×3 (06:31→22:22)
[2018-03-18] MEDS: HumuLIN R SUB-Q SCH ×3 (07:30→22:14)
[2018-03-18] MEDS: CATAPRES PO SCH ×2 (09:00→22:14)
--- NOTE | 2018-03-18 09:14 | Progress Note ---
Subjective Interval history: Patient was seen today for follow-up on multiple renal related issues Events of this hospitalization noted Has had central venous catheter placement She will need dialysis today Blood pressure is still elevated Patient denies having any chest pain pressure or shortness of breath Vitals labs intake output medications were reviewed Social history: Reviewed Allergies: Reviewed Family history: Reviewed Physical examination HEENT: Oral mucosa moist no pallor or icterus Neck: Supple no JVD Chest: Clear to auscultation anteriorly CVS: Regular rate and rhythm S1 and S2 heard Abdomen: Soft nontender no suprapubic masses no organomegaly appreciable Extremity: Dry skin less than 1+ peripheral edema Musculoskeletal: No joint effusion noted in knees and ankle Neurological: Alert awake Dermatology: No petechial rashes Psychiatry: No evidence of any agitation and aggression noted Assessment and plan End-stage renal disease: Patient will receive second dialysis treatment today, and possibly tomorrow Hyperkalemia: Needs to be monitored closely, change Lasix to 80 mg once a day on nondialysis days Patient will need follow-up labs today Will order Hypertension: We will introduce losartan at 50 mg once a day, discontinue clonidine continue with carvedilol as well as amlodipine for now I believe patient should respond well to losartan as well as hemodialysis ultrafiltration etc. Dyspnea: Currently doing much better, patient does need to have cardiology as well as pulmonary evaluation this admission as she was markedly short of breath in the outpatient setting and was given oxygen dependent Some of this was also resulting from severe metabolic acidosis that she had, for which she was seen by her primary care physician Dr. Flaherty and was given Sterapred for possible COPD flare Secondary hyperparathyroidism: Check phosphorus PTH level periodically High risk for malnutrition patient needs to be in high protein diet please consider nutritional consultation Outpatient dialysis clinic will be established at [facility] Patient was adequately counseled and educated regarding multiple renal related issues Pertinent lab findings were discussed with patient, patient does exhibit good understanding of renal issues We'll continue to follow and make recommendation from renal standpoint Objective - Vital Signs Vital signs: Vital Signs - 12hr 03/17/18 03/17/18 03/17/18 21:22 21:43 22:49 Temperature 98.3 F Pulse Rate 87 85 Respiratory 18 18 Rate Blood Pressure 180/80 [Left] O2 Sat by Pulse 89 Oximetry 03/18/18 08:00 Temperature 98.6 F Pulse Rate 85 Respiratory 18 Rate Blood Pressure 148/76 [Left] O2 Sat by Pulse 95 Oximetry - Lab 03/16/18 15:26 03/17/18 05:12 Most recent lab results Calcium 7.9 mg/dL (8.4-10.2) L 03/17/18 05:12 Magnesium 2.70 mg/dL (1.7-2.3) H 03/16/18 15:43
[2018-03-18] MEDS: COREG PO SCH ×2 (10:00→22:14)
[2018-03-18] MEDS: HEPARIN SUB-Q SCH ×2 (10:00→22:13)
[2018-03-18] MEDS: BABY ASPIRIN PO SCH (10:00)
[2018-03-18] MEDS: NORVASC PO SCH (10:00)
[2018-03-18 10:22] LABS: Basophils % (Auto) 0.2 % (0.0-1.8); Eosinophils # (Auto) 0.1 K/mm3 (0.0-0.4); Hematocrit 31.9 % (30.3-42.9); Hemoglobin 10.5 gm/dl (10.1-14.3); Lymphocytes # (Auto) 0.8 K/mm3 (1.2-5.4); Mean Corpuscular HGB Conc 33 % (30-34); Mean Corpuscular Hemoglobin 28 pg (28-32); Mean Corpuscular Volume 85 fl (79-97); Monocytes % (Auto) 12.3 % (0.0-7.3); Platelet Count 150 K/mm3 (140-440); Red Blood Count 3.73 M/mm3 (3.65-5.03); Red Cell Distribution Width 17.6 % (13.2-15.2)
[2018-03-18 10:50] LABS: Albumin 3.6 g/dL (3.9-5); Calcium 7.6 mg/dL (8.4-10.2)
[2018-03-18] MEDS ORDERED: PROCRIT SUB-Q ONE (11:00)
[2018-03-18] MEDS ORDERED: LASIX PO PRN (11:00)
[2018-03-18] MEDS ORDERED: NACL 0.9% 100 ML IV PRN (11:00)
[2018-03-18] MEDS ORDERED: COZAAR PO SCH (11:00)
[2018-03-18] MEDS ORDERED: NACL 0.9 (PRIMING MACHINE ONLY DIALYSIS) MC ONE (11:29)
[2018-03-18] MEDS: TYLENOL PO PRN (17:08)
--- NOTE | 2018-03-18 17:51 | Progress Note ---
Assessment and Plan Assessment and plan: 63-year-old woman with past medical history of chronic kidney disease, she was sent by her cloth layer and her blood work showed that her creatinine was trending upward that she have hyperkalemia Past medical history includes hypertension, diabetes, COPD and glaucoma. Hyperkalemia Has been medically treated, nephrology consult appreciated Chronic kidney disease with acute injury/htn nephropathy IV fluids, avoid nephrotoxins, further care per Nephrology sp Permacath, continue HD, needs outpatient HD Hypertension, continue blood pressure meds, Diabetes or hypoglycemia Optimize insulin transportation Severe glaucoma poor vision, continue supportive care History Interval history: Review of systems Constitutional: No fevers, no malaise, no joint pains CVS: No chest pain, no orthopnea, no dyspnea on exertion, no pedal edema GI: No abdominal pain, no diarrhea, no vomiting, no constipation Respiratory: No shortness of breath, no wheezing, no coughing Hospitalist Physical - Physical exam Narrative exam: General.: Appears well, no distress, nontoxic HEENT: Moist mucous membranes, extraocular muscles intact, no lymphadenopathy, impaired vision Neck: supple Cardiac: S1-S2 heard Lungs: clear to auscultation bilaterally Abdomen: soft , nontender, nondistended, bowel sounds positive Extremities: no edema clubbing or cyanosis Skin: no rash or lesions Neurologic: no gross focal deficits Psych: appropriate behavior, appropriate mood, corporative, judgment intact - Constitutional Vitals: Temp Pulse Resp BP Pulse Ox 99.0 F 86 18 162/77 93 03/18/18 13:32 03/18/18 13:32 03/18/18 13:32 03/18/18 13:32 03/18/18 13:32 Results - Labs CBC & Chem 7: 03/18/18 09:25 03/18/18 09:25 Labs: Laboratory Last Values WBC 8.4 K/mm3 (4.5-11.0) 03/18/18 09:25 RBC 3.73 M/mm3 (3.65-5.03) 03/18/18 09:25 Hgb 10.5 gm/dl (10.1-14.3) 03/18/18 09:25 Hct 31.9 % (30.3-42.9) 03/18/18 09:25 MCV 85 fl (79-97) 03/18/18 09:25 MCH 28 pg (28-32) 03/18/18 09:25 MCHC 33 % (30-34) 03/18/18 09:25 RDW 17.6 % (13.2-15.2) H 03/18/18 09:25 Plt Count 150 K/mm3 (140-440) 03/18/18 09:25 Lymph % (Auto) 9.0 % (13.4-35.0) L 03/18/18 09:25 [place] % (Auto) 12.3 % (0.0-7.3) H 03/18/18 09:25 Eos % (Auto) 1.0 % (0.0-4.3) 03/18/18 09:25 Baso % (Auto) 0.2 % (0.0-1.8) 03/18/18 09:25 Lymph # 0.8 K/mm3 (1.2-5.4) L 03/18/18 09:25 [place] # 1.0 K/mm3 (0.0-0.8) H 03/18/18 09:25 Eos # 0.1 K/mm3 (0.0-0.4) 03/18/18 09:25 Baso # 0.0 K/mm3 (0.0-0.1) 03/18/18 09:25 Seg Neutrophils % 77.5 % (40.0-70.0) H 03/18/18 09:25 Seg Neutrophils # 6.5 K/mm3 (1.8-7.7) 03/18/18 09:25 PT 16.1 Sec. (12.2-14.9) H 03/16/18 15:43 INR 1.22 (0.87-1.13) H 03/16/18 15:43 APTT 26.9 Sec. (24.2-36.6) 03/16/18 15:43 Sodium 139 mmol/L (137-145) 03/18/18 09:25 Potassium 3.7 mmol/L (3.6-5.0) D 03/18/18 09:25 Chloride 105.5 mmol/L (98-107) 03/18/18 09:25 Carbon Dioxide 18 mmol/L (22-30) L 03/18/18 09:25 Anion Gap 19 mmol/L 03/18/18 09:25 BUN 68 mg/dL (7-17) H 03/18/18 09:25 Creatinine 4.4 mg/dL (0.7-1.2) H 03/18/18 09:25 Estimated GFR 12 ml/min 03/18/18 09:25 BUN/Creatinine Ratio 15 % 03/18/18 09:25 Glucose 116 mg/dL (65-100) H 03/18/18 09:25 POC Glucose 199 (70-105) H 03/18/18 13:32 Calcium 7.6 mg/dL (8.4-10.2) L 03/18/18 09:25 Phosphorus 3.80 mg/dL (2.5-4.5) 03/18/18 09:25 Magnesium 2.70 mg/dL (1.7-2.3) H 03/16/18 15:43 Total Bilirubin 0.40 mg/dL (0.1-1.2) 03/18/18 09:25 AST 14 units/L (5-40) 03/18/18 09:25 ALT 20 units/L (7-56) 03/18/18 09:25 Alkaline Phosphatase 58 units/L (35-129) 03/18/18 09:25 Total Protein 6.9 g/dL (6.3-8.2) 03/18/18 09:25 Albumin 3.6 g/dL (3.9-5) L 03/18/18 09:25 Albumin/Globulin Ratio 1.1 % 03/18/18 09:25 PTH Intact 406.0 pg/mL (15-65) H 03/18/18 09:25 Hepatitis A IgM Ab Non-reactive (NonReactive) 03/17/1858 Hep Bs Antigen Non-reactive (Negative) 03/17/1858 Hep B Core IgM Ab Non-reactive (NonReactive) 03/17/1858 Hepatitis C Antibody Non-reactive (NonReactive) 03/17/1858
[2018-03-19] MEDS: HumuLIN R SUB-Q SCH ×5 (08:51→22:42)
[2018-03-19] MEDS ORDERED: NACL 0.9% 100 ML IV PRN (09:14)
--- NOTE | 2018-03-19 09:14 | Progress Note ---
Subjective Interval history: Patient was seen today for follow-up on multiple renal related issues Events of this hospitalization noted Has had central venous catheter placement She will need dialysis today Blood pressure is still elevated Patient denies having any chest pain pressure or shortness of breath Vitals labs intake output medications were reviewed Social history: Reviewed Allergies: Reviewed Family history: Reviewed Physical examination HEENT: Oral mucosa moist no pallor or icterus Neck: Supple no JVD Chest: Clear to auscultation anteriorly CVS: Regular rate and rhythm S1 and S2 heard Abdomen: Soft nontender no suprapubic masses no organomegaly appreciable Extremity: Dry skin less than 1+ peripheral edema Musculoskeletal: No joint effusion noted in knees and ankle Neurological: Alert awake Dermatology: No petechial rashes Psychiatry: No evidence of any agitation and aggression noted Assessment and plan ESRD: Patient is new start was symptomatic with uremia metabolic acidosis was also noted to have severe hyperkalemia Will order for hemodialysis treatment today, patient is staying here through the weekend will need hemodialysis on Friday Patient has been initiated on renal replacement therapy with a central venous catheter fistula can be considered later date when her health is better in the outpatient setting out like to discuss with patient Phosphorus and PTH normal, calcium on the low side Will start the patient on vitamin D We will keep her on a 3.0 calcium bath Hypertension: Continue to monitor for now patient has been started on losartan, just other medications as needed Shortness of breath respiratory failure with oxygen-dependent some of this was also resulting from severe metabolic acidosis bicarbonate was 11 in outpatient setting patient does need to see pulmonary as well as cardiology service Anemia in end-stage renal disease: To monitor and follow secondary hyperparathyroidism: Check phosphorus and PTH level outpatient dialysis clinic chair time is currently being secured at [facility] but as of today we do not have a chair time possibly will happen next week discussed with Naren Adequately counseled and educated about diet in end-stage renal disease Patient has had a low-grade fever of 100.1 on 1017 currently afebrile she is feeling much better, she does not have any pericardial rub, chest is clear catheter site is unremarkable Will increase losartan to 100 mg once a day and discontinue clonidine for now and see how she responds Pertinent lab findings were discussed with patient, patient does exhibit good understanding of renal issues We'll continue to follow and make recommendation from renal standpoint Objective - Vital Signs Vital signs: Vital Signs - 12hr 03/18/18 03/18/18 03/18/18 22:00 22:03 23:52 Temperature 100.1 F H 99.9 F H Pulse Rate 89 79 Respiratory 16 20 Rate Blood Pressure 137/75 Blood Pressure 144/74 [Left] O2 Sat by Pulse 96 96 97 Oximetry 03/18/18 03/19/18 23:53 06:31 Temperature 99.6 F 98.3 F Pulse Rate 77 76 Respiratory 20 20 Rate Blood Pressure 149/76 Blood Pressure [Left] O2 Sat by Pulse 98 94 Oximetry - Lab 03/18/18 09:25 03/18/18 09:25 Most recent lab results Calcium 7.6 mg/dL (8.4-10.2) L 03/18/18 09:25 Phosphorus 3.80 mg/dL (2.5-4.5) 03/18/18 09:25 Magnesium 2.70 mg/dL (1.7-2.3) H 03/16/18 15:43
[2018-03-19] MEDS: KENALOG TP SCH ×3 (09:26→22:41)
[2018-03-19] MEDS: HEPARIN SUB-Q SCH ×2 (09:27→22:41)
[2018-03-19] MEDS ORDERED: VITAMIN D2 PO SCH (10:00)
[2018-03-19] MEDS: VITAMIN D3 PO SCH (14:06)
[2018-03-19] MEDS: NORVASC PO SCH (14:07)
[2018-03-19] MEDS: BABY ASPIRIN PO SCH (14:08)
[2018-03-19] MEDS: COREG PO SCH ×2 (14:09→22:39)
[2018-03-19] MEDS: COZAAR PO SCH (14:09)
--- NOTE | 2018-03-19 17:06 | Progress Note ---
Assessment and Plan Assessment and plan: 63-year-old woman with past medical history of chronic kidney disease, she was sent by her spine supervisor and her blood work showed that her creatinine was trending upward that she have hyperkalemia Past medical history includes hypertension, diabetes, COPD and glaucoma. Hyperkalemia Has been medically treated, nephrology consult appreciated Chronic kidney disease with acute injury/htn nephropathy IV fluids, avoid nephrotoxins, further care per Nephrology sp Permacath, continue HD, needs outpatient HD Hypertension, continue blood pressure meds, Diabetes or hypoglycemia Optimize insulin transportation Severe glaucoma poor vision, continue supportive care History Interval history: Review of systems Constitutional: No fevers, no malaise, no joint pains CVS: No chest pain, no orthopnea, no dyspnea on exertion, no pedal edema GI: No abdominal pain, no diarrhea, no vomiting, no constipation Respiratory: No shortness of breath, no wheezing, no coughing Hospitalist Physical - Physical exam Narrative exam: General.: Appears well, no distress, nontoxic HEENT: Moist mucous membranes, extraocular muscles intact, no lymphadenopathy, impaired vision Neck: supple Cardiac: S1-S2 heard Lungs: clear to auscultation bilaterally Abdomen: soft , nontender, nondistended, bowel sounds positive Extremities: no edema clubbing or cyanosis Skin: no rash or lesions Neurologic: no gross focal deficits Psych: appropriate behavior, appropriate mood, corporative, judgment intact - Constitutional Vitals: Temp Pulse Resp BP Pulse Ox 98.5 F 86 20 171/81 93 03/19/18 13:48 03/19/18 14:07 03/19/18 13:48 03/19/18 14:07 03/19/18 13:48 Results - Labs CBC & Chem 7: 03/18/18 09:25 03/18/18 09:25 Labs: Laboratory Last Values WBC 8.4 K/mm3 (4.5-11.0) 03/18/18 09:25 RBC 3.73 M/mm3 (3.65-5.03) 03/18/18 09:25 Hgb 10.5 gm/dl (10.1-14.3) 03/18/18 09:25 Hct 31.9 % (30.3-42.9) 03/18/18 09:25 MCV 85 fl (79-97) 03/18/18 09:25 MCH 28 pg (28-32) 03/18/18 09:25 MCHC 33 % (30-34) 03/18/18 09:25 RDW 17.6 % (13.2-15.2) H 03/18/18 09:25 Plt Count 150 K/mm3 (140-440) 03/18/18 09:25 Lymph % (Auto) 9.0 % (13.4-35.0) L 03/18/18 09:25 [place] % (Auto) 12.3 % (0.0-7.3) H 03/18/18 09:25 Eos % (Auto) 1.0 % (0.0-4.3) 03/18/18 09:25 Baso % (Auto) 0.2 % (0.0-1.8) 03/18/18 09:25 Lymph # 0.8 K/mm3 (1.2-5.4) L 03/18/18 09:25 [place] # 1.0 K/mm3 (0.0-0.8) H 03/18/18 09:25 Eos # 0.1 K/mm3 (0.0-0.4) 03/18/18 09:25 Baso # 0.0 K/mm3 (0.0-0.1) 03/18/18 09:25 Seg Neutrophils % 77.5 % (40.0-70.0) H 03/18/18 09:25 Seg Neutrophils # 6.5 K/mm3 (1.8-7.7) 03/18/18 09:25 PT 16.1 Sec. (12.2-14.9) H 03/16/18 15:43 INR 1.22 (0.87-1.13) H 03/16/18 15:43 APTT 26.9 Sec. (24.2-36.6) 03/16/18 15:43 Sodium 139 mmol/L (137-145) 03/18/18 09:25 Potassium 3.7 mmol/L (3.6-5.0) D 03/18/18 09:25 Chloride 105.5 mmol/L (98-107) 03/18/18 09:25 Carbon Dioxide 18 mmol/L (22-30) L 03/18/18 09:25 Anion Gap 19 mmol/L 03/18/18 09:25 BUN 68 mg/dL (7-17) H 03/18/18 09:25 Creatinine 4.4 mg/dL (0.7-1.2) H 03/18/18 09:25 Estimated GFR 12 ml/min 03/18/18 09:25 BUN/Creatinine Ratio 15 % 03/18/18 09:25 Glucose 116 mg/dL (65-100) H 03/18/18 09:25 POC Glucose 286 (70-105) H 03/19/18 16:09 Calcium 7.6 mg/dL (8.4-10.2) L 03/18/18 09:25 Phosphorus 3.80 mg/dL (2.5-4.5) 03/18/18 09:25 Magnesium 2.70 mg/dL (1.7-2.3) H 03/16/18 15:43 Total Bilirubin 0.40 mg/dL (0.1-1.2) 03/18/18 09:25 AST 14 units/L (5-40) 03/18/18 09:25 ALT 20 units/L (7-56) 03/18/18 09:25 Alkaline Phosphatase 58 units/L (35-129) 03/18/18 09:25 Total Protein 6.9 g/dL (6.3-8.2) 03/18/18 09:25 Albumin 3.6 g/dL (3.9-5) L 03/18/18 09:25 Albumin/Globulin Ratio 1.1 % 03/18/18 09:25 PTH Intact 406.0 pg/mL (15-65) H 03/18/18 09:25 Hepatitis A IgM Ab Non-reactive (NonReactive) 03/17/1858 Hep Bs Antigen Non-reactive (Negative) 03/17/18 Hep B Core IgM Ab Non-reactive (NonReactive) 03/17/1858 Hepatitis C Antibody Non-reactive (NonReactive) 03/17/1858
[2018-03-20] MEDS: HumuLIN R SUB-Q SCH ×4 (08:01→22:06)
[2018-03-20] MEDS: KENALOG TP SCH ×3 (08:02→21:05)
--- NOTE | 2018-03-20 09:10 | Progress Note ---
Assessment and Plan Assessment and plan: 63-year-old woman with past medical history of chronic kidney disease, she was sent by her dye stand loader and her blood work showed that her creatinine was trending upward that she have hyperkalemia Past medical history includes hypertension, diabetes, COPD and glaucoma. Hyperkalemia Has been medically treated, nephrology consult appreciated ESRD sp Permacath, continue HD, needs outpatient HD awaiting chair time Hypertension, continue blood pressure meds, Diabetes or hypoglycemia Optimize insulin transportation Severe glaucoma poor vision, continue supportive care History Interval history: Review of systems Constitutional: No fevers, no malaise, no joint pains CVS: No chest pain, no orthopnea, no dyspnea on exertion, no pedal edema GI: No abdominal pain, no diarrhea, no vomiting, no constipation Respiratory: No shortness of breath, no wheezing, no coughing Hospitalist Physical - Physical exam Narrative exam: General.: Appears well, no distress, nontoxic HEENT: Moist mucous membranes, extraocular muscles intact, no lymphadenopathy, impaired vision Neck: supple Cardiac: S1-S2 heard Lungs: clear to auscultation bilaterally Abdomen: soft , nontender, nondistended, bowel sounds positive Extremities: no edema clubbing or cyanosis Skin: no rash or lesions Neurologic: no gross focal deficits Psych: appropriate behavior, appropriate mood, corporative, judgment intact - Constitutional Vitals: Temp Pulse Resp BP Pulse Ox 98.6 F 71 16 142/71 95 03/20/18 05:08 03/20/18 05:08 03/20/18 08:04 03/20/18 05:08 03/20/18 05:08 Results - Labs CBC & Chem 7: 03/18/18 09:25 03/18/18 09:25 Labs: Laboratory Last Values WBC 8.4 K/mm3 (4.5-11.0) 03/18/18 09:25 RBC 3.73 M/mm3 (3.65-5.03) 03/18/18 09:25 Hgb 10.5 gm/dl (10.1-14.3) 03/18/18 09:25 Hct 31.9 % (30.3-42.9) 03/18/18 09:25 MCV 85 fl (79-97) 03/18/18 09:25 MCH 28 pg (28-32) 03/18/18 09:25 MCHC 33 % (30-34) 03/18/18 09:25 RDW 17.6 % (13.2-15.2) H 03/18/18 09:25 Plt Count 150 K/mm3 (140-440) 03/18/18 09:25 Lymph % (Auto) 9.0 % (13.4-35.0) L 03/18/18 09:25 [place] % (Auto) 12.3 % (0.0-7.3) H 03/18/18 09:25 Eos % (Auto) 1.0 % (0.0-4.3) 03/18/18 09:25 Baso % (Auto) 0.2 % (0.0-1.8) 03/18/18 09:25 Lymph # 0.8 K/mm3 (1.2-5.4) L 03/18/18 09:25 [place] # 1.0 K/mm3 (0.0-0.8) H 03/18/18 09:25 Eos # 0.1 K/mm3 (0.0-0.4) 03/18/18 09:25 Baso # 0.0 K/mm3 (0.0-0.1) 03/18/18 09:25 Seg Neutrophils % 77.5 % (40.0-70.0) H 03/18/18 09:25 Seg Neutrophils # 6.5 K/mm3 (1.8-7.7) 03/18/18 09:25 PT 16.1 Sec. (12.2-14.9) H 03/16/18 15:43 INR 1.22 (0.87-1.13) H 03/16/18 15:43 APTT 26.9 Sec. (24.2-36.6) 03/16/18 15:43 Sodium 139 mmol/L (137-145) 03/18/18 09:25 Potassium 3.7 mmol/L (3.6-5.0) D 03/18/18 09:25 Chloride 105.5 mmol/L (98-107) 03/18/18 09:25 Carbon Dioxide 18 mmol/L (22-30) L 03/18/18 09:25 Anion Gap 19 mmol/L 03/18/18 09:25 BUN 68 mg/dL (7-17) H 03/18/18 09:25 Creatinine 4.4 mg/dL (0.7-1.2) H 03/18/18 09:25 Estimated GFR 12 ml/min 03/18/18 09:25 BUN/Creatinine Ratio 15 % 03/18/18 09:25 Glucose 116 mg/dL (65-100) H 03/18/18 09:25 POC Glucose 149 (70-105) H 03/20/18 07:45 Calcium 7.6 mg/dL (8.4-10.2) L 03/18/18 09:25 Phosphorus 3.80 mg/dL (2.5-4.5) 03/18/18 09:25 Magnesium 2.70 mg/dL (1.7-2.3) H 03/16/18 15:43 Total Bilirubin 0.40 mg/dL (0.1-1.2) 03/18/18 09:25 AST 14 units/L (5-40) 03/18/18 09:25 ALT 20 units/L (7-56) 03/18/18 09:25 Alkaline Phosphatase 58 units/L (35-129) 03/18/18 09:25 Total Protein 6.9 g/dL (6.3-8.2) 03/18/18 09:25 Albumin 3.6 g/dL (3.9-5) L 03/18/18 09:25 Albumin/Globulin Ratio 1.1 % 03/18/18 09:25 PTH Intact 406.0 pg/mL (15-65) H 03/18/18 09:25 Hepatitis A IgM Ab Non-reactive (NonReactive) 03/17/18 15:58 Hep Bs Antigen Non-reactive (Negative) 03/17/18 15:58 Hep B Core IgM Ab Non-reactive (NonReactive) 03/17/18 15:58 Hepatitis C Antibody Non-reactive (NonReactive) 03/17/18 15:58
[2018-03-20] MEDS: VITAMIN D3 PO SCH (10:38)
[2018-03-20] MEDS: BABY ASPIRIN PO SCH (10:39)
[2018-03-20] MEDS: HEPARIN SUB-Q SCH ×2 (10:39→21:06)
--- NOTE | 2018-03-20 12:08 | Progress Note ---
Assessment and Plan impression * End-stage renal disease * Uremia * , hypertension * Anemia secondary to ESRD * Shortness of breath Recommendations * Patient had uneventful hemodialysis yesterday * Schedule patient for dialysis for tomorrow. * continue dialysis on TTS schedule for now * outpatient dialysis being arranged at [facility] * Procrit with Dialysis * Binders with diet * avoid nephrotoxins * her blood pressure is under better control today. Subjective Date of service: 03/20/18 Interval history: Patient is doing well. Denies any shortness of breath. No nausea or vomiting. Objective - Vital Signs Vital signs: Vital Signs - 12hr 03/20/18 03/20/18 03/20/18 00:09 05:08 08:04 Temperature 98.8 F 98.6 F Pulse Rate 74 71 Respiratory 18 18 16 Rate Blood Pressure 136/70 142/71 O2 Sat by Pulse 96 95 Oximetry - General Appearance General appearance: well-developed, well-nourished, appears stated age EENT: ATNC Neck: no JVD, no thyromegaly, no carotid bruit, supple, other (right IJ PermCath in place) Respiratory: Present: Clear to Ascultation Cardiology: regular, normal heart rate, S1S2, no murmurs Gastrointestinal: normal, normoactive bowel sounds Integumentary: no rash, other (no edema) - Lab 03/18/18 09:25 03/18/18 09:25 Most recent lab results Calcium 7.6 mg/dL (8.4-10.2) L 03/18/18 09:25 Phosphorus 3.80 mg/dL (2.5-4.5) 03/18/18 09:25 Magnesium 2.70 mg/dL (1.7-2.3) H 03/16/18 15:43
[2018-03-20] MEDS: NORVASC PO SCH (15:58)
[2018-03-20] MEDS: CATAPRES PO PRN (15:59)
[2018-03-20] MEDS: COREG PO SCH ×2 (15:59→21:06)
[2018-03-20] MEDS: COZAAR PO SCH (17:21)
[2018-03-20] MEDS ORDERED: NACL 0.9% 100 ML IV PRN (17:46)
[2018-03-21] MEDS: BENADRYL PO PRN ×2 (02:02→21:01)
[2018-03-21] MEDS: KENALOG TP SCH ×3 (08:00→19:50)
[2018-03-21] MEDS: HumuLIN R SUB-Q SCH ×4 (08:36→21:48)
[2018-03-21] MEDS: COREG PO SCH ×2 (10:00→21:01)
[2018-03-21] MEDS: HEPARIN SUB-Q SCH ×2 (10:00→21:01)
--- NOTE | 2018-03-21 11:56 | Progress Note ---
Assessment and Plan impression * End-stage renal disease * Uremia * , hypertension * Anemia secondary to ESRD * Shortness of breath Recommendations * Patient is being initiated on dialysis now * continue dialysis on TTS schedule for now * outpatient dialysis being arranged at [facility] * Procrit with Dialysis * Binders with diet * avoid nephrotoxins * her blood pressure is under better control today. Subjective Date of service: 03/21/18 Interval history: Patient seen in the dialysis room. Dialysis is being initiated. She does feel better today. Denies any nausea or vomiting. Objective - Vital Signs Vital signs: Vital Signs - 12hr 03/21/18 03/21/18 03/21/18 05:09 09:00 11:00 Temperature 97.5 F L 98.0 F Pulse Rate 70 70 Respiratory 18 18 Rate Blood Pressure 141/67 134/71 O2 Sat by Pulse 100 95 Oximetry 03/21/18 11:15 Temperature Pulse Rate 67 Respiratory Rate Blood Pressure 144/69 O2 Sat by Pulse Oximetry - General Appearance General appearance: well-developed, well-nourished, appears stated age EENT: PERRL, mucous membranes moist Neck: no JVD, no thyromegaly, no carotid bruit, supple, other (right IJ PermCath in place) Respiratory: Present: Clear to Ascultation Cardiology: regular, normal heart rate, S1S2, no murmurs Gastrointestinal: normal, normoactive bowel sounds Integumentary: other (no edema) - Lab 03/18/18 09:25 03/18/18 09:25 Most recent lab results Calcium 7.6 mg/dL (8.4-10.2) L 03/18/18 09:25 Phosphorus 3.80 mg/dL (2.5-4.5) 03/18/18 09:25 Magnesium 2.70 mg/dL (1.7-2.3) H 03/16/18 15:43
--- NOTE | 2018-03-21 12:26 | Progress Note ---
Assessment and Plan Assessment and plan: 63-year-old woman with past medical history of chronic kidney disease, she was sent by her glass engraver and her blood work showed that her creatinine was trending upward that she have hyperkalemia Past medical history includes hypertension, diabetes, COPD and glaucoma. Hyperkalemia Has been medically treated, nephrology consult appreciated ESRD sp Permacath, continue HD, needs outpatient HD awaiting chair time Hypertension, continue blood pressure meds, Diabetes or hypoglycemia Optimize insulins Severe glaucoma poor vision, continue supportive care History Interval history: Review of systems Constitutional: No fevers, no malaise, no joint pains CVS: No chest pain, no orthopnea, no dyspnea on exertion, no pedal edema GI: No abdominal pain, no diarrhea, no vomiting, no constipation Respiratory: No shortness of breath, no wheezing, no coughing Hospitalist Physical - Physical exam Narrative exam: General.: Appears well, no distress, nontoxic HEENT: Moist mucous membranes, extraocular muscles intact, no lymphadenopathy, impaired vision Neck: supple Cardiac: S1-S2 heard Lungs: clear to auscultation bilaterally Abdomen: soft , nontender, nondistended, bowel sounds positive Extremities: no edema clubbing or cyanosis Skin: no rash or lesions Neurologic: no gross focal deficits, impared vision Psych: appropriate behavior, appropriate mood, corporative, judgment intact - Constitutional Vitals: Temp Pulse Resp BP Pulse Ox 98.0 F 67 18 144/69 95 03/21/18 11:00 03/21/18 11:15 03/21/18 11:00 03/21/18 11:15 03/21/18 09:00 Results - Labs CBC & Chem 7: 03/18/18 09:25 03/18/18 09:25 Labs: Laboratory Last Values WBC 8.4 K/mm3 (4.5-11.0) 03/18/18 09:25 RBC 3.73 M/mm3 (3.65-5.03) 03/18/18 09:25 Hgb 10.5 gm/dl (10.1-14.3) 03/18/18 09:25 Hct 31.9 % (30.3-42.9) 03/18/18 09:25 MCV 85 fl (79-97) 03/18/18 09:25 MCH 28 pg (28-32) 03/18/18 09:25 MCHC 33 % (30-34) 03/18/18 09:25 RDW 17.6 % (13.2-15.2) H 03/18/18 09:25 Plt Count 150 K/mm3 (140-440) 03/18/18 09:25 Lymph % (Auto) 9.0 % (13.4-35.0) L 03/18/18 09:25 [place] % (Auto) 12.3 % (0.0-7.3) H 03/18/18 09:25 Eos % (Auto) 1.0 % (0.0-4.3) 03/18/18 09:25 Baso % (Auto) 0.2 % (0.0-1.8) 03/18/18 09:25 Lymph # 0.8 K/mm3 (1.2-5.4) L 03/18/18 09:25 [place] # 1.0 K/mm3 (0.0-0.8) H 03/18/18 09:25 Eos # 0.1 K/mm3 (0.0-0.4) 03/18/18 09:25 Baso # 0.0 K/mm3 (0.0-0.1) 03/18/18 09:25 Seg Neutrophils % 77.5 % (40.0-70.0) H 03/18/18 09:25 Seg Neutrophils # 6.5 K/mm3 (1.8-7.7) 03/18/18 09:25 PT 16.1 Sec. (12.2-14.9) H 03/16/18 15:43 INR 1.22 (0.87-1.13) H 03/16/18 15:43 APTT 26.9 Sec. (24.2-36.6) 03/16/18 15:43 Sodium 139 mmol/L (137-145) 03/18/18 09:25 Potassium 3.7 mmol/L (3.6-5.0) D 03/18/18 09:25 Chloride 105.5 mmol/L (98-107) 03/18/18 09:25 Carbon Dioxide 18 mmol/L (22-30) L 03/18/18 09:25 Anion Gap 19 mmol/L 03/18/18 09:25 BUN 68 mg/dL (7-17) H 03/18/18 09:25 Creatinine 4.4 mg/dL (0.7-1.2) H 03/18/18 09:25 Estimated GFR 12 ml/min 03/18/18 09:25 BUN/Creatinine Ratio 15 % 03/18/18 09:25 Glucose 116 mg/dL (65-100) H 03/18/18 09:25 POC Glucose 151 (70-105) H 03/21/18 07:33 Calcium 7.6 mg/dL (8.4-10.2) L 03/18/18 09:25 Phosphorus 3.80 mg/dL (2.5-4.5) 03/18/18 09:25 Magnesium 2.70 mg/dL (1.7-2.3) H 03/16/18 15:43 Total Bilirubin 0.40 mg/dL (0.1-1.2) 03/18/18 09:25 AST 14 units/L (5-40) 03/18/18 09:25 ALT 20 units/L (7-56) 03/18/18 09:25 Alkaline Phosphatase 58 units/L (35-129) 03/18/18 09:25 Total Protein 6.9 g/dL (6.3-8.2) 03/18/18 09:25 Albumin 3.6 g/dL (3.9-5) L 03/18/18 09:25 Albumin/Globulin Ratio 1.1 % 03/18/18 09:25 PTH Intact 406.0 pg/mL (15-65) H 03/18/18 09:25 Hepatitis A IgM Ab Non-reactive (NonReactive) 03/17/18 15:58 Hep Bs Antigen Non-reactive (Negative) 03/17/18 15:58 Hep B Core IgM Ab Non-reactive (NonReactive) 03/17/18 15:58 Hepatitis C Antibody Non-reactive (NonReactive) 03/17/18 15:58
[2018-03-21] MEDS ORDERED: NACL 0.9 (PRIMING MACHINE ONLY DIALYSIS) MC ONE (15:37)
[2018-03-21] MEDS: NORVASC PO SCH (17:03)
[2018-03-21] MEDS: COZAAR PO SCH (17:03)
[2018-03-21] MEDS: VITAMIN D3 PO SCH (17:05)
[2018-03-21] MEDS: BABY ASPIRIN PO SCH (17:05)
[2018-03-21] MEDS: CATAPRES PO PRN (17:05)
[2018-03-22] MEDS: HumuLIN R SUB-Q SCH ×4 (07:30→22:09)
[2018-03-22] MEDS: KENALOG TP SCH ×4 (08:00→21:01)
[2018-03-22] MEDS: HEPARIN SUB-Q SCH ×2 (10:44→21:01)
[2018-03-22] MEDS: VITAMIN D3 PO SCH (10:44)
[2018-03-22] MEDS: COZAAR PO SCH (10:44)
[2018-03-22] MEDS: BABY ASPIRIN PO SCH (10:45)
--- NOTE | 2018-03-22 10:45 | Progress Note ---
Assessment and Plan impression * End-stage renal disease * Uremia * , hypertension * Anemia secondary to ESRD * Shortness of breath Recommendations * Uneventful hemodialysis yesterday * continue dialysis on TTS schedule for now * outpatient dialysis being arranged at [facility] * Procrit with Dialysis * Binders with diet * avoid nephrotoxins * her blood pressure is under better control today. Subjective Date of service: 03/22/18 Interval history: Patient is comfortable today. Denies any shortness of breath. No nausea or vomiting Objective - Vital Signs Vital signs: Vital Signs - 12hr 03/22/18 03/22/18 03/22/18 00:11 05:59 07:48 Temperature 98.8 F 98.9 F Pulse Rate 73 74 Respiratory 20 20 Rate Blood Pressure 143/65 143/69 O2 Sat by Pulse 98 98 98 Oximetry - General Appearance General appearance: well-developed, well-nourished, appears stated age EENT: PERRL, mucous membranes moist Neck: no JVD, no thyromegaly, no carotid bruit, supple, other (right IJ PermCath in place) Respiratory: Present: Clear to Ascultation Cardiology: regular, normal heart rate, S1S2, no murmurs Gastrointestinal: normal, normoactive bowel sounds Integumentary: no rash, other (no edema) - Lab 03/18/18 09:25 03/18/18 09:25 Most recent lab results Calcium 7.6 mg/dL (8.4-10.2) L 03/18/18 09:25 Phosphorus 3.80 mg/dL (2.5-4.5) 03/18/18 09:25 Magnesium 2.70 mg/dL (1.7-2.3) H 03/16/18 15:43
[2018-03-22] MEDS: NORVASC PO SCH (10:46)
[2018-03-22] MEDS: COREG PO SCH ×2 (10:46→21:01)
--- NOTE | 2018-03-22 11:02 | Progress Note ---
Assessment and Plan Assessment and plan: 63-year-old woman with past medical history of chronic kidney disease, she was sent by her horseradish maker and her blood work showed that her creatinine was trending upward that she have hyperkalemia Past medical history includes hypertension, diabetes, COPD and glaucoma. Hyperkalemia Has been medically treated, nephrology consult appreciated ESRD sp Permacath, continue HD, needs outpatient HD awaiting chair time Hypertension, continue blood pressure meds, Diabetes or hypoglycemia Optimize insulins Severe glaucoma poor vision, continue supportive care History Interval history: Review of systems Constitutional: No fevers, no malaise, no joint pains CVS: No chest pain, no orthopnea, no dyspnea on exertion, no pedal edema GI: No abdominal pain, no diarrhea, no vomiting, no constipation Respiratory: No shortness of breath, no wheezing, no coughing Hospitalist Physical - Physical exam Narrative exam: General.: Appears well, no distress, nontoxic HEENT: Moist mucous membranes, extraocular muscles intact, no lymphadenopathy, impaired vision Neck: supple Cardiac: S1-S2 heard Lungs: clear to auscultation bilaterally Abdomen: soft , nontender, nondistended, bowel sounds positive Extremities: no edema clubbing or cyanosis Skin: no rash or lesions Neurologic: no gross focal deficits, impared vision Psych: appropriate behavior, appropriate mood, corporative, judgment intact - Constitutional Vitals: Temp Pulse Resp BP Pulse Ox 98.9 F 79 20 159/70 98 03/22/18 05:59 03/22/18 10:44 03/22/18 05:59 03/22/18 10:44 03/22/18 07:48 Results - Labs CBC & Chem 7: 03/18/18 09:25 03/18/18 09:25 Labs: Laboratory Last Values WBC 8.4 K/mm3 (4.5-11.0) 03/18/18 09:25 RBC 3.73 M/mm3 (3.65-5.03) 03/18/18 09:25 Hgb 10.5 gm/dl (10.1-14.3) 03/18/18 09:25 Hct 31.9 % (30.3-42.9) 03/18/18 09:25 MCV 85 fl (79-97) 03/18/18 09:25 MCH 28 pg (28-32) 03/18/18 09:25 MCHC 33 % (30-34) 03/18/18 09:25 RDW 17.6 % (13.2-15.2) H 03/18/18 09:25 Plt Count 150 K/mm3 (140-440) 03/18/18 09:25 Lymph % (Auto) 9.0 % (13.4-35.0) L 03/18/18 09:25 [place] % (Auto) 12.3 % (0.0-7.3) H 03/18/18 09:25 Eos % (Auto) 1.0 % (0.0-4.3) 03/18/18 09:25 Baso % (Auto) 0.2 % (0.0-1.8) 03/18/18 09:25 Lymph # 0.8 K/mm3 (1.2-5.4) L 03/18/18 09:25 [place] # 1.0 K/mm3 (0.0-0.8) H 03/18/18 09:25 Eos # 0.1 K/mm3 (0.0-0.4) 03/18/18 09:25 Baso # 0.0 K/mm3 (0.0-0.1) 03/18/18 09:25 Seg Neutrophils % 77.5 % (40.0-70.0) H 03/18/18 09:25 Seg Neutrophils # 6.5 K/mm3 (1.8-7.7) 03/18/18 09:25 PT 16.1 Sec. (12.2-14.9) H 03/16/18 15:43 INR 1.22 (0.87-1.13) H 03/16/18 15:43 APTT 26.9 Sec. (24.2-36.6) 03/16/18 15:43 Sodium 139 mmol/L (137-145) 03/18/18 09:25 Potassium 3.7 mmol/L (3.6-5.0) D 03/18/18 09:25 Chloride 105.5 mmol/L (98-107) 03/18/18 09:25 Carbon Dioxide 18 mmol/L (22-30) L 03/18/18 09:25 Anion Gap 19 mmol/L 03/18/18 09:25 BUN 68 mg/dL (7-17) H 03/18/18 09:25 Creatinine 4.4 mg/dL (0.7-1.2) H 03/18/18 09:25 Estimated GFR 12 ml/min 03/18/18 09:25 BUN/Creatinine Ratio 15 % 03/18/18 09:25 Glucose 116 mg/dL (65-100) H 03/18/18 09:25 POC Glucose 167 (70-105) H 03/22/18 07:49 Calcium 7.6 mg/dL (8.4-10.2) L 03/18/18 09:25 Phosphorus 3.80 mg/dL (2.5-4.5) 03/18/18 09:25 Magnesium 2.70 mg/dL (1.7-2.3) H 03/16/18 15:43 Total Bilirubin 0.40 mg/dL (0.1-1.2) 03/18/18 09:25 AST 14 units/L (5-40) 03/18/18 09:25 ALT 20 units/L (7-56) 03/18/18 09:25 Alkaline Phosphatase 58 units/L (35-129) 03/18/18 09:25 Total Protein 6.9 g/dL (6.3-8.2) 03/18/18 09:25 Albumin 3.6 g/dL (3.9-5) L 03/18/18 09:25 Albumin/Globulin Ratio 1.1 % 03/18/18 09:25 PTH Intact 406.0 pg/mL (15-65) H 03/18/18 09:25 Hepatitis A IgM Ab Non-reactive (NonReactive) 03/17/18 15:58 Hep Bs Antigen Non-reactive (Negative) 03/17/18 15:58 Hep B Core IgM Ab Non-reactive (NonReactive) 03/17/18 15:58 Hepatitis C Antibody Non-reactive (NonReactive) 03/17/18 15:58
[2018-03-23] MEDS: HumuLIN R SUB-Q SCH ×4 (08:28→21:50)
[2018-03-23] MEDS: KENALOG TP SCH ×3 (10:08→21:49)
[2018-03-23] MEDS: BABY ASPIRIN PO SCH (10:08)
[2018-03-23] MEDS: HEPARIN SUB-Q SCH ×2 (10:09→21:48)
--- NOTE | 2018-03-23 10:29 | Progress Note ---
Assessment and Plan Assessment and plan: 63-year-old woman with past medical history of chronic kidney disease, she was sent by her communications agent and her blood work showed that her creatinine was trending upward that she have hyperkalemia Past medical history includes hypertension, diabetes, COPD and glaucoma. Hyperkalemia Has been medically treated, nephrology consult appreciated ESRD sp Permacath, continue HD, needs outpatient HD awaiting chair time Hypertension, continue blood pressure meds, Diabetes or hypoglycemia Optimize insulins Severe glaucoma poor vision, continue supportive care dvt ppx; chemical Dispo; tentative dc tomorrow after she has HD chair time History Interval history: Review of systems Constitutional: No fevers, no malaise, no joint pains CVS: No chest pain, no orthopnea, no dyspnea on exertion, no pedal edema GI: No abdominal pain, no diarrhea, no vomiting, no constipation Respiratory: No shortness of breath, no wheezing, no coughing Hospitalist Physical - Physical exam Narrative exam: General.: Appears well, no distress, nontoxic HEENT: Moist mucous membranes, extraocular muscles intact, no lymphadenopathy, impaired vision Neck: supple Cardiac: S1-S2 heard Lungs: clear to auscultation bilaterally Abdomen: soft , nontender, nondistended, bowel sounds positive Extremities: no edema clubbing or cyanosis Skin: no rash or lesions Neurologic: no gross focal deficits, impared vision Psych: appropriate behavior, appropriate mood, corporative, judgment intact - Constitutional Vitals: Temp Pulse Resp BP Pulse Ox 99.0 F 80 20 153/72 99 03/23/18 05:43 03/23/18 05:43 03/23/18 05:43 03/23/18 05:43 03/23/18 05:43 Results - Labs CBC & Chem 7: 03/23/18 12:02 03/23/18 14:49 Labs: Laboratory Last Values WBC 8.4 K/mm3 (4.5-11.0) 03/18/18 09:25 RBC 3.73 M/mm3 (3.65-5.03) 03/18/18 09:25 Hgb 10.5 gm/dl (10.1-14.3) 03/18/18 09:25 Hct 31.9 % (30.3-42.9) 03/18/18 09:25 MCV 85 fl (79-97) 03/18/18 09:25 MCH 28 pg (28-32) 03/18/18 09:25 MCHC 33 % (30-34) 03/18/18 09:25 RDW 17.6 % (13.2-15.2) H 03/18/18 09:25 Plt Count 150 K/mm3 (140-440) 03/18/18 09:25 Lymph % (Auto) 9.0 % (13.4-35.0) L 03/18/18 09:25 Dickey % (Auto) 12.3 % (0.0-7.3) H 03/18/18 09:25 Eos % (Auto) 1.0 % (0.0-4.3) 03/18/18 09:25 Baso % (Auto) 0.2 % (0.0-1.8) 03/18/18 09:25 Lymph # 0.8 K/mm3 (1.2-5.4) L 03/18/18 09:25 Dickey # 1.0 K/mm3 (0.0-0.8) H 03/18/18 09:25 Eos # 0.1 K/mm3 (0.0-0.4) 03/18/18 09:25 Baso # 0.0 K/mm3 (0.0-0.1) 03/18/18 09:25 Seg Neutrophils % 77.5 % (40.0-70.0) H 03/18/18 09:25 Seg Neutrophils # 6.5 K/mm3 (1.8-7.7) 03/18/18 09:25 PT 16.1 Sec. (12.2-14.9) H 03/16/18 15:43 INR 1.22 (0.87-1.13) H 03/16/18 15:43 APTT 26.9 Sec. (24.2-36.6) 03/16/18 15:43 Sodium 139 mmol/L (137-145) 03/18/18 09:25 Potassium 3.7 mmol/L (3.6-5.0) D 03/18/18 09:25 Chloride 105.5 mmol/L (98-107) 03/18/18 09:25 Carbon Dioxide 18 mmol/L (22-30) L 03/18/18 09:25 Anion Gap 19 mmol/L 03/18/18 09:25 BUN 68 mg/dL (7-17) H 03/18/18 09:25 Creatinine 4.4 mg/dL (0.7-1.2) H 03/18/18 09:25 Estimated GFR 12 ml/min 03/18/18 09:25 BUN/Creatinine Ratio 15 % 03/18/18 09:25 Glucose 116 mg/dL (65-100) H 03/18/18 09:25 POC Glucose 179 (70-105) H 03/23/18 07:47 Calcium 7.6 mg/dL (8.4-10.2) L 03/18/18 09:25 Phosphorus 3.80 mg/dL (2.5-4.5) 03/18/18 09:25 Magnesium 2.70 mg/dL (1.7-2.3) H 03/16/18 15:43 Total Bilirubin 0.40 mg/dL (0.1-1.2) 03/18/18 09:25 AST 14 units/L (5-40) 03/18/18 09:25 ALT 20 units/L (7-56) 03/18/18 09:25 Alkaline Phosphatase 58 units/L (35-129) 03/18/18 09:25 Total Protein 6.9 g/dL (6.3-8.2) 03/18/18 09:25 Albumin 3.6 g/dL (3.9-5) L 03/18/18 09:25 Albumin/Globulin Ratio 1.1 % 03/18/18 09:25 PTH Intact 406.0 pg/mL (15-65) H 03/18/18 09:25 Hepatitis A IgM Ab Non-reactive (NonReactive) 03/17/18 15:58 Hep Bs Antigen Non-reactive (Negative) 03/17/18:58 Hep B Core IgM Ab Non-reactive (NonReactive) 03/17/18 15:58 Hepatitis C Antibody Non-reactive (NonReactive) 03/17/18 15:58
--- NOTE | 2018-03-23 10:31 | Progress Note ---
Assessment and Plan Impression * End-stage renal disease * Uremia * , hypertension * Anemia secondary to ESRD * Shortness of breath Recommendations * continue dialysis on TTS schedule for now * outpatient dialysis being arranged at [facility] * Procrit with Dialysis * Binders with diet * avoid nephrotoxins * her blood pressure is under better control today. Subjective Date of service: 03/23/18 Principal diagnosis: esrd Interval history: resting in bed today Objective - Exam Narrative Exam: General appearance: well-developed, well-nourished, appears stated age EENT: PERRL, mucous membranes moist Neck: no JVD, no thyromegaly, no carotid bruit, supple, other (right IJ PermCath in place) Respiratory: Present: Clear to Ascultation Cardiology: regular, normal heart rate, S1S2, no murmurs Gastrointestinal: normal, normoactive bowel sounds Integumentary: no rash, other (no edema) - Vital Signs Vital signs: Vital Signs - 12hr 03/22/18 03/23/18 23:17 05:43 Temperature 99.4 F 99.0 F Pulse Rate 86 80 Respiratory 22 20 Rate Blood Pressure 146/69 153/72 O2 Sat by Pulse 98 99 Oximetry - Lab 03/18/18 09:25 03/18/18 09:25 Most recent lab results Calcium 7.6 mg/dL (8.4-10.2) L 03/18/18 09:25 Phosphorus 3.80 mg/dL (2.5-4.5) 03/18/18 09:25 Magnesium 2.70 mg/dL (1.7-2.3) H 03/16/18 15:43
[2018-03-23] MEDS: VITAMIN D3 PO SCH (11:07)
[2018-03-23] MEDS: COZAAR PO SCH (11:34)
[2018-03-23] MEDS: NORVASC PO SCH (11:35)
[2018-03-23] MEDS: COREG PO SCH ×2 (11:35→21:48)
[2018-03-23 13:15] LABS: Hematocrit 29.1 % (30.3-42.9); Hemoglobin 9.3 gm/dl (10.1-14.3); Mean Corpuscular HGB Conc 32 % (30-34); Mean Corpuscular Hemoglobin 28 pg (28-32); Mean Corpuscular Volume 88 fl (79-97); Platelet Count 156 K/mm3 (140-440); Red Blood Count 3.32 M/mm3 (3.65-5.03)
[2018-03-23 13:56] LABS: Basophils % (Manual) 0 % (0.0-1.8); Schistocytes Few; Total Cells Counted 100
[2018-03-23 13:57] LABS: Hypochromasia 1+; Platelet Estimate Consistent w Auto
[2018-03-23 16:07] LABS: Calcium 8.6 mg/dL (8.4-10.2)
[2018-03-24] MEDS: HumuLIN R SUB-Q SCH ×4 (08:48→21:18)
[2018-03-24] MEDS: KENALOG TP SCH ×3 (08:50→21:01)
--- NOTE | 2018-03-24 09:55 | Progress Note ---
Assessment and Plan Impression * End-stage renal disease * Uremia * hypertension * Anemia secondary to ESRD * Shortness of breath Recommendations * continue dialysis on TTS schedule for now * outpatient dialysis being arranged at [facility] * Procrit with Dialysis * Binders with diet * avoid nephrotoxins * her blood pressure is under better control today. Subjective Date of service: 03/24/18 Principal diagnosis: esrd Interval history: resting in bed today Objective - Exam Narrative Exam: General appearance: well-developed, well-nourished, appears stated age EENT: PERRL, mucous membranes moist Neck: no JVD, no thyromegaly, no carotid bruit, supple, other (right IJ PermCath in place) Respiratory: Present: Clear to Ascultation Cardiology: regular, normal heart rate, S1S2, no murmurs Gastrointestinal: normal, normoactive bowel sounds Integumentary: no rash, other (no edema) - Vital Signs Vital signs: Vital Signs - 12hr 03/23/18 03/24/18 03/24/18 23:36 05:55 07:05 Temperature 99.1 F 98.8 F Pulse Rate 83 75 Respiratory 20 18 16 Rate Blood Pressure 126/61 156/73 O2 Sat by Pulse 94 96 Oximetry 03/24/18 08:52 Temperature Pulse Rate Respiratory Rate Blood Pressure O2 Sat by Pulse 86 Oximetry - Lab 03/23/18 12:02 03/23/18 14:49 Most recent lab results Calcium 8.6 mg/dL (8.4-10.2) 03/23/18 14:49 Phosphorus 3.80 mg/dL (2.5-4.5) 03/18/18 09:25 Magnesium 2.70 mg/dL (1.7-2.3) H 03/16/18 15:43
--- NOTE | 2018-03-24 12:07 | Progress Note ---
Assessment and Plan Assessment and plan: Patient is a 63-year-old woman with history of hypertension, COPD, glaucoma, DM type 2 and chronic kidney disease who pw worsening renal function which progressed to ESRD. She was started on hemodialysis. ESRD sp Permacath, continue HD, needs outpatient HD: awaiting chair time Hyperkalemia: Has been medically treated, nephrology consult appreciated Hypertension, continue blood pressure meds, Diabetes Mellitus type 2: treat with SSI Severe glaucoma: poor vision, continue supportive care, recommended outpatient Weight Checker DVT ppx reviewed Dispo: tentative dc tomorrow after she has HD chair time History Interval history: Patient was seen and examined. Follow-up on current diagnosis renal failure. Overnight uneventful. Patient denies any chest pain, shortness breath, nausea/ vomiting or severe headaches. Imaging, nursing note, chart, labs and old chart reviewed. Discussed with patient. Hospitalist Physical - Physical exam Narrative exam: GEN: WDWN, NAD, Awake, Alert, Orientated HEENT: NCAT, EOMI, PERRL, OP Clear NECK: supple, no adenopathy, no thyromegaly, no JVD CVS/HEART: RRR, normal S1S2, pulses present bilaterally CHEST/LUNGS: CTA B, Symmetrical chest expansion, good air entry bilaterally GI/Abdomen: soft, NTND, good bowel sounds, no guarding or rebound /Bladder: no suprapubic tenderness, no CVA or paraspinal tenderness EXT/Skin: no c/c/e, no obvious rash MSK: FROM x 4 Neuro: CN 2-12 grossly intact, no new focal deficits Psych: calm - Constitutional Vitals: Temp Pulse Resp BP Pulse Ox 98.8 F 77 18 171/76 86 03/24/18 09:30 03/24/18 11:30 03/24/18 09:30 03/24/18 11:30 03/24/18 08:52 Results - Labs CBC & Chem 7: 03/23/18 12:02 03/23/18 14:49 Labs: Laboratory Last Values WBC 5.8 K/mm3 (4.5-11.0) 03/23/18 12:02 RBC 3.32 M/mm3 (3.65-5.03) L 03/23/18 12:02 Hgb 9.3 gm/dl (10.1-14.3) L 03/23/18 12:02 Hct 29.1 % (30.3-42.9) L 03/23/18 12:02 MCV 88 fl (79-97) 03/23/18 12:02 MCH 28 pg (28-32) 03/23/18 12:02 MCHC 32 % (30-34) 03/23/18 12:02 RDW 18.0 % (13.2-15.2) H 03/23/18 12:02 Plt Count 156 K/mm3 (140-440) 03/23/18 12:02 Lymph % (Auto) 9.0 % (13.4-35.0) L 03/18/18 09:25 Carver % (Auto) 12.3 % (0.0-7.3) H 03/18/18 09:25 Eos % (Auto) 1.0 % (0.0-4.3) 03/18/18 09:25 Baso % (Auto) 0.2 % (0.0-1.8) 03/18/18 09:25 Lymph # 0.8 K/mm3 (1.2-5.4) L 03/18/18 09:25 Carver # 1.0 K/mm3 (0.0-0.8) H 03/18/18 09:25 Eos # 0.1 K/mm3 (0.0-0.4) 03/18/18 09:25 Baso # 0.0 K/mm3 (0.0-0.1) 03/18/18 09:25 Add Manual Diff Complete 03/23/18 12:02 Total Counted 100 03/23/18 12:02 Seg Neutrophils % 77.5 % (40.0-70.0) H 03/18/18 09:25 Seg Neuts % (Manual) 68.0 % (40.0-70.0) 03/23/18 12:02 Band Neutrophils % 0 % 03/23/18 12:02 Lymphocytes % (Manual) 15.0 % (13.4-35.0) 03/23/18 12:02 Reactive Lymphs % (Man) 0 % 03/23/18 12:02 Monocytes % (Manual) 14.0 % (0.0-7.3) H 03/23/18 12:02 Eosinophils % (Manual) 3.0 % (0.0-4.3) 03/23/18 12:02 Basophils % (Manual) 0 % (0.0-1.8) 03/23/18 12:02 Metamyelocytes % 0 % 03/23/18 12:02 Myelocytes % 0 % 03/23/18 12:02 Promyelocytes % 0 % 03/23/18 12:02 Blast Cells % 0 % 03/23/18 12:02 Nucleated RBC % Not Reportable 03/23/18 12:02 Seg Neutrophils # 6.5 K/mm3 (1.8-7.7) 03/18/18 09:25 Seg Neutrophils # Man 3.9 K/mm3 (1.8-7.7) 03/23/18 12:02 Band Neutrophils # 0.0 K/mm3 03/23/18 12:02 Lymphocytes # (Manual) 0.9 K/mm3 (1.2-5.4) L 03/23/18 12:02 Abs React Lymphs (Man) 0.0 K/mm3 03/23/18 12:02 Monocytes # (Manual) 0.8 K/mm3 (0.0-0.8) 03/23/18 12:02 Eosinophils # (Manual) 0.2 K/mm3 (0.0-0.4) 03/23/18 12:02 Basophils # (Manual) 0.0 K/mm3 (0.0-0.1) 03/23/18 12:02 Metamyelocytes # 0.0 K/mm3 03/23/18 12:02 Myelocytes # 0.0 K/mm3 03/23/18 12:02 Promyelocytes # 0.0 K/mm3 03/23/18 12:02 Blast Cells # 0.0 K/mm3 03/23/18 12:02 WBC Morphology Not Reportable 03/23/18 12:02 Hypersegmented Neuts Not Reportable 03/23/18 12:02 Hyposegmented Neuts Not Reportable 03/23/18 12:02 Hypogranular Neuts Not Reportable 03/23/18 12:02 Smudge Cells Not Reportable 03/23/18 12:02 Toxic Granulation Not Reportable 03/23/18 12:02 Toxic Vacuolation Not Reportable 03/23/18 12:02 Dohle Bodies Not Reportable 03/23/18 12:02 Pelger-Huet Anomaly Not Reportable 03/23/18 12:02 Gwen Rods Not Reportable 03/23/18 12:02 Platelet Estimate Consistent w auto 03/23/18 12:02 Clumped Platelets Not Reportable 03/23/18 12:02 Plt Clumps, EDTA Not Reportable 03/23/18 12:02 Large Platelets Not Reportable 03/23/18 12:02 Giant Platelets Not Reportable 03/23/18 12:02 Platelet Satelliting Not Reportable 03/23/18 12:02 Plt Morphology Comment Not Reportable 03/23/18 12:02 RBC Morphology Not Reportable 03/23/18 12:02 Dimorphic RBCs Not Reportable 03/23/18 12:02 Polychromasia Few 03/23/18 12:02 Hypochromasia 1+ 03/23/18 12:02 Poikilocytosis Not Reportable 03/23/18 12:02 Anisocytosis Not Reportable 03/23/18 12:02 Microcytosis Not Reportable 03/23/18 12:02 Macrocytosis Not Reportable 03/23/18 12:02 Spherocytes Not Reportable 03/23/18 12:02 Pappenheimer Bodies Not Reportable 03/23/18 12:02 Sickle Cells Not Reportable 03/23/18 12:02 Target Cells Not Reportable 03/23/18 12:02 Tear Drop Cells Not Reportable 03/23/18 12:02 Ovalocytes Not Reportable 03/23/18 12:02 Helmet Cells Not Reportable 03/23/18 12:02 Coleman-[place] Bodies Not Reportable 03/23/18 12:02 [place] Rings Not Reportable 03/23/18 12:02 Izabela Cells Not Reportable 03/23/18 12:02 Bite Cells Not Reportable 03/23/18 12:02 Crenated Cell Not Reportable 03/23/18 12:02 Elliptocytes Not Reportable 03/23/18 12:02 Acanthocytes (Spur) Not Reportable 03/23/18 12:02 Rouleaux Not Reportable 03/23/18 12:02 Hemoglobin C Crystals Not Reportable 03/23/18 12:02 Schistocytes Few 03/23/18 12:02 Malaria parasites Not Reportable 03/23/18 12:02 Zach Bodies Not Reportable 03/23/18 12:02 Hem Pathologist Commnt No 03/23/18 12:02 PT 16.1 Sec. (12.2-14.9) H 03/16/18 15:43 INR 1.22 (0.87-1.13) H 03/16/18 15:43 APTT 26.9 Sec. (24.2-36.6) 03/16/18 15:43 Sodium 140 mmol/L (137-145) 03/23/18 14:49 Potassium 4.2 mmol/L (3.6-5.0) 03/23/18 14:49 Chloride 103.4 mmol/L (98-107) 03/23/18 14:49 Carbon Dioxide 22 mmol/L (22-30) 03/23/18 14:49 Anion Gap 19 mmol/L 03/23/18 14:49 BUN 29 mg/dL (7-17) H 03/23/18 14:49 Creatinine 4.2 mg/dL (0.7-1.2) H 03/23/18 14:49 Estimated GFR 13 ml/min 03/23/18 14:49 BUN/Creatinine Ratio 7 % 03/23/18 14:49 Glucose 214 mg/dL (65-100) H 03/23/18 14:49 POC Glucose 190 (70-105) H 03/24/18 07:48 Calcium 8.6 mg/dL (8.4-10.2) 03/23/18 14:49 Phosphorus 3.80 mg/dL (2.5-4.5) 03/18/18 09:25 Magnesium 2.70 mg/dL (1.7-2.3) H 03/16/18 15:43 Total Bilirubin 0.40 mg/dL (0.1-1.2) 03/18/18 09:25 AST 14 units/L (5-40) 03/18/18 09:25 ALT 20 units/L (7-56) 03/18/18 09:25 Alkaline Phosphatase 58 units/L (35-129) 03/18/18 09:25 Total Protein 6.9 g/dL (6.3-8.2) 03/18/18 09:25 Albumin 3.6 g/dL (3.9-5) L 03/18/18 09:25 Albumin/Globulin Ratio 1.1 % 03/18/18 09:25 PTH Intact 406.0 pg/mL (15-65) H 03/18/18 09:25 Hepatitis A IgM Ab Non-reactive (NonReactive) 03/17/18 15:58 Hep Bs Antigen Non-reactive (Negative) 03/17/18 15:58 Hep B Core IgM Ab Non-reactive (NonReactive) 03/17/18 15:58 Hepatitis C Antibody Non-reactive (NonReactive) 03/17/18 15:58
[2018-03-24] MEDS ORDERED: NACL 0.9 (PRIMING MACHINE ONLY DIALYSIS) MC ONE (12:45)
[2018-03-24] MEDS: VITAMIN D3 PO SCH (14:20)
[2018-03-24] MEDS: COREG PO SCH ×2 (14:20→21:02)
[2018-03-24] MEDS: BABY ASPIRIN PO SCH (14:20)
[2018-03-24] MEDS: COZAAR PO SCH (14:21)
[2018-03-24] MEDS: HEPARIN SUB-Q SCH ×2 (14:21→21:02)
[2018-03-24] MEDS: CATAPRES PO PRN (14:21)
[2018-03-24] MEDS: NORVASC PO SCH (14:21)
[2018-03-24] MEDS: TYLENOL PO PRN (15:03)
[2018-03-25] MEDS: HumuLIN R SUB-Q SCH ×3 (08:07→16:51)
[2018-03-25] MEDS: KENALOG TP SCH (09:00)
--- NOTE | 2018-03-25 10:07 | Progress Note ---
Assessment and Plan Impression * End-stage renal disease * Uremia * hypertension * Anemia secondary to ESRD * Shortness of breath Recommendations * continue dialysis on TTS schedule for now * outpatient dialysis being arranged at [facility] * tthsat--11am * Procrit with Dialysis * Binders with diet * avoid nephrotoxins * her blood pressure is under better control today. * ok to dc home from renal standpoint Subjective Date of service: 03/25/18 Principal diagnosis: esrd Interval history: resting in bed today Objective - Exam Narrative Exam: General appearance: well-developed, well-nourished, appears stated age EENT: PERRL, mucous membranes moist Neck: no JVD, no thyromegaly, no carotid bruit, supple, other (right IJ PermCath in place) Respiratory: Present: Clear to Ascultation Cardiology: regular, normal heart rate, S1S2, no murmurs Gastrointestinal: normal, normoactive bowel sounds Integumentary: no rash, other (no edema) - Vital Signs Vital signs: Vital Signs - 12hr 03/24/18 03/25/18 23:30 04:24 Temperature 98.4 F 98.4 F Pulse Rate 71 69 Respiratory 18 18 Rate Blood Pressure 142/70 134/66 O2 Sat by Pulse 99 98 Oximetry - Lab 03/23/18 12:02 03/23/18 14:49 Most recent lab results Calcium 8.6 mg/dL (8.4-10.2) 03/23/18 14:49 Phosphorus 3.80 mg/dL (2.5-4.5) 03/18/18 09:25 Magnesium 2.70 mg/dL (1.7-2.3) H 03/16/18 15:43
[2018-03-25] MEDS: COREG PO SCH (11:12)
[2018-03-25] MEDS: VITAMIN D3 PO SCH (11:12)
[2018-03-25] MEDS: NORVASC PO SCH (11:12)
[2018-03-25] MEDS: BABY ASPIRIN PO SCH (11:12)
[2018-03-25] MEDS: COZAAR PO SCH (11:13)
[2018-03-25 11:18] VITALS: BP 142/66
[2018-03-25] MEDS: HEPARIN SUB-Q SCH (11:20)
--- NOTE | 2018-03-25 12:45 | Discharge Summary ---
Providers - Providers Date of Admission: 03/16/18 22:03 Date of discharge: 03/25/18 Attending physician: VINCENZO REN 03/16/18 22:11 Consult to Physician [CONS] Routine Comment: Consulting Provider: NEHEMIAS AGUILERA Physician Instructions: Reason For Exam: CKD AND HYPERKALEMIA 03/17/18 09:00 Consult to Interventional Radiology [CONS] Urgent Consulting Provider: STEVEN BRAVO Reason For Exam: permacath tonja Notified:: yes Primary care physician: CNC PROGRAMMER Hospitalization Condition: Stable Hospital course: Patient is a 63-year-old woman with history of hypertension, COPD, glaucoma, DM type 2 and chronic kidney disease who pw worsening renal function which progressed to ESRD. She was started on hemodialysis. ESRD sp Permacath, continue HD, needs outpatient HD Hyperkalemia: Has been medically treated, nephrology consult appreciated Hypertension, continue blood pressure meds, Diabetes Mellitus type 2: treat with SSI Severe glaucoma: poor vision, continue supportive care, recommended outpatient Change Room Attendant DVT ppx reviewed Dispo: d/c today as Jeannette the case briefer said that patient does have a chair time today Disposition: DC-01 TO HOME OR SELFCARE Time spent for discharge: 33 min Core Measure Documentation - Palliative Care Palliative Care/ Comfort Measures: Not Applicable - Core Measures Any of the following diagnoses?: none - VTE Discharge Requirements Deep Vein Thrombosis/Pulmonary Embolism Present on Admission: No Has pt received <5 days of overlap therapy or INR<2.0: No Anticoagulant overlap therapy prescribed at discharge: No Contraindication No Overlap Therapy order at DC: Not Indicated Exam - Physical Exam Narrative exam: GEN: WDWN, NAD, Awake, Alert, Orientated HEENT: NCAT, EOMI, PERRL, OP Clear NECK: supple, no adenopathy, no thyromegaly, no JVD CVS/HEART: RRR, normal S1S2, pulses present bilaterally CHEST/LUNGS: CTA B, Symmetrical chest expansion, good air entry bilaterally GI/Abdomen: soft, NTND, good bowel sounds, no guarding or rebound /Bladder: no suprapubic tenderness, no CVA or paraspinal tenderness EXT/Skin: no c/c/e, no obvious rash MSK: FROM x 4 Neuro: CN 2-12 grossly intact, no new focal deficits Psych: calm - Constitutional Vitals: Temp Pulse Resp BP Pulse Ox 98.4 F 69 18 142/66 99 03/25/18 04:24 03/25/18 04:24 03/25/18 04:24 03/25/18 11:12 03/25/18 09:25 Plan Activity: other (no strenous activity unless cleared by PCP) Diet: diabetic, renal Special Instructions: record daily BP diary, record blood sugar diary Follow up with: PRIMARY CARE, [Primary Care Provider] - 3-5 Days Prescriptions: Cholecalciferol Vit D3 [Vitamin D3] 5,000 unit PO DAILY #30 tablet Losartan [Cozaar] 100 mg PO QDAY #60 tablet
[2018-03-25] MEDS ORDERED: AFLURIA QUAD 2018-2019 SYRINGE IM ONE (13:00)
== END 2018-03-25 17:30 | disposition home or self-care (01) | DRG 674 ==
LOC: ED 15:05 → 4A 22:03 → 3A 03-18 15:41
PROVIDERS: ADMIT Internal Medicine; ATTEND Internal Medicine
PROC: 0JH63XZ Insertion of Tunneled Vascular Access Device into Chest Subcutaneous Tissue and Fascia, Percutaneous Approach (ICD-10-PCS; principal; 2018-03-17)
PROC: 05HM33Z Insertion of Infusion Device into Right Internal Jugular Vein, Percutaneous Approach (ICD-10-PCS; 2018-03-17)
PROC: B5131ZA Fluoroscopy of Right Jugular Veins using Low Osmolar Contrast, Guidance (ICD-10-PCS; 2018-03-17)
PROC: B543ZZA Ultrasonography of Right Jugular Veins, Guidance (ICD-10-PCS; 2018-03-17)
PROC: 5A1D70Z Performance of Urinary Filtration, Intermittent, Less than 6 Hours Per Day (ICD-10-PCS; 2018-03-17)
PROC: 5A1D70Z Performance of Urinary Filtration, Intermittent, Less than 6 Hours Per Day (ICD-10-PCS; 2018-03-18)
PROC: 5A1D70Z Performance of Urinary Filtration, Intermittent, Less than 6 Hours Per Day (ICD-10-PCS; 2018-03-19)
PROC: 5A1D70Z Performance of Urinary Filtration, Intermittent, Less than 6 Hours Per Day (ICD-10-PCS; 2018-03-21)
PROC: 5A1D70Z Performance of Urinary Filtration, Intermittent, Less than 6 Hours Per Day (ICD-10-PCS; 2018-03-24)
DX: N17.9 Acute kidney failure, unspecified (principal); I12.0 Hypertensive chronic kidney disease with stage 5 chronic kidney disease or end stage renal disease; E87.5 Hyperkalemia; N18.6 End stage renal disease; N25.81 Secondary hyperparathyroidism of renal origin; E11.22 Type 2 diabetes mellitus with diabetic chronic kidney disease; J44.9 Chronic obstructive pulmonary disease, unspecified; D63.1 Anemia in chronic kidney disease; H40.9 Unspecified glaucoma; Z99.2 Dependence on renal dialysis; Z91.018 Allergy to other foods
CPT/HCPCS: 36415; 36558; 71045; 76937; 77001; 80048; 80053; 80074; 82962; 83735; 83970; 84100; 85007; 85025; 85027; 85610; 85730; 90686; 93005; 93010; 94640; 94760; 96365; 96375; A9270-GY; C1750; C1769; J0885; J1644; J1815; J2250; J2405; J3010; J7030; J7050; J7070

== ENCOUNTER 2021-04-16 13:08 | Emergency (ER) | payer MEDICARE ==
[2021-04-16] MEDS ORDERED: ONDANSETRON 4 MG ODT TAB PO ONE (13:52)
--- NOTE | 2021-04-16 13:52 | Emergency Department Report ---
ED N/V/D HPI - General Chief complaint: Abdominal Pain Stated complaint: SENT BY PCP Time Seen by Provider: 04/16/21 13:47 Source: patient Mode of arrival: Ambulatory Limitations: No Limitations - History of Present Illness Initial comments: Patient presents with a couple day history of nausea, vomiting, and diarrhea. She has had mild abdominal cramping associate with this. She is a dialysis patient. She is post to be dialyzed tomorrow. Her doctor told her to come here today to be evaluated for a potassium level. Patient is not sure if her pota ssium is off or not. Patient states that she ate something that tasted funny. She believes that she had food poisoning. Symptoms started several days ago. They seem to improve and then worsened again. For the last 2 days, she has had ongoing vomiting and diarrhea. She has tried Imodium without symptomatic improvement. There is no hematemesis or coffee-ground emesis. She has no melanotic stool. There is no fevers or chills. She has had no sick contacts. She has not been on antibiotics lately. - Related Data Home Medications Medication Instructions Recorded Confirmed Last Taken cloNIDine [Catapres] 0.1 mg PO TID 03/16/18 03/16/18 Unknown Previous Rx's Medication Instructions Recorded Last Taken Type Aspirin [Aspirin BABY CHEW TAB] 81 mg PO QDAY #30 tab.chew 09/04/17 Unknown Rx AtorvaSTATin [Lipitor] 20 mg PO QHS #30 tablet 09/04/17 Unknown Rx Furosemide [Lasix TAB] 20 mg PO QDAY PRN #30 tablet 09/04/17 Unknown Rx Triamcinolone 0.1% [Kenalog 0.1% 1 applic TP TID tube 09/04/17 Unknown Rx CREAM] amLODIPine 10 mg PO DAILY #30 tablet 09/04/17 Unknown Rx carvediloL [Coreg] 25 mg PO BID tablet 09/04/17 Unknown Rx Cholecalciferol Vit D3 [Vitamin D3 5,000 unit PO DAILY #30 tablet 03/23/18 Unknown Rx 1,000 UNIT TAB] Losartan [Cozaar] 100 mg PO QDAY #60 tablet 03/23/18 Unknown Rx Allergies Allergy/AdvReac Type Severity Reaction Status Date / Time strawberry AdvReac Rash Verified 04/16/21 13:40 ED Review of Systems ROS: Stated complaint: SENT BY PCP Other details as noted in HPI Comment: All other systems reviewed and negative Constitutional: denies: fever Eyes: denies: eye pain ENT: denies: throat pain Respiratory: denies: cough Cardiovascular: denies: chest pain Endocrine: denies: unexplained weight loss Gastrointestinal: as per HPI Musculoskeletal: denies: back pain Skin: denies: rash Neurological: denies: headache Hematological/Lymphatic: denies: easy bruising ED Past Medical Hx - Past Medical History Hx Hypertension: Yes Hx Heart Attack/AMI: No Hx Congestive Heart Failure: Yes (home O2L) Hx Diabetes: Yes Hx Deep Vein Thrombosis: No Hx Liver Disease: No Hx Renal Disease: Yes Hx Kidney Stones: Yes Hx Asthma: No Hx COPD: No Additional medical history: Glaucoma - Surgical History Hx Coronary Stent: No Hx Pacemaker: No Hx Internal Defibrillator: No Hx Cholecystectomy: Yes - Family History Family history: hypertension - Social History Smoking Status: Never Smoker - Medications Home Medications: Home Medications Medication Instructions Recorded Confirmed Last Taken Type Aspirin [Aspirin BABY CHEW TAB] 81 mg PO QDAY #30 tab.chew 09/04/17 03/16/18 Unknown Rx AtorvaSTATin [Lipitor] 20 mg PO QHS #30 tablet 09/04/17 03/16/18 Unknown Rx Furosemide [Lasix TAB] 20 mg PO QDAY PRN #30 tablet 09/04/17 03/16/18 Unknown Rx Triamcinolone 0.1% [Kenalog 0.1% 1 applic TP TID tube 09/04/17 03/16/18 Unknown Rx CREAM] amLODIPine 10 mg PO DAILY #30 tablet 09/04/17 03/16/18 Unknown Rx carvediloL [Coreg] 25 mg PO BID tablet 09/04/17 03/16/18 Unknown Rx cloNIDine [Catapres] 0.1 mg PO TID 03/16/18 03/16/18 Unknown History Cholecalciferol Vit D3 [Vitamin D3 5,000 unit PO DAILY #30 tablet 03/23/18 Unknown Rx 1,000 UNIT TAB] Losartan [Cozaar] 100 mg PO QDAY #60 tablet 03/23/18 Unknown Rx ED Physical Exam - General Limitations: No Limitations, Other (Pulse ox is noted and normal) General appearance: alert, in no apparent distress - Head Head exam: Present: atraumatic, normocephalic, normal inspection - Eye Eye exam: Present: normal appearance, EOMI. Absent: scleral icterus - ENT ENT exam: Present: normal exam, normal orophraynx, normal external ear exam - Neck Neck exam: Present: normal inspection. Absent: meningismus - Respiratory Respiratory exam: Present: normal lung sounds bilaterally. Absent: respiratory distress - Cardiovascular Cardiovascular Exam: Present: regular rate, normal rhythm - GI/Abdominal GI/Abdominal exam: Present: soft. Absent: distended, tenderness - Extremities Exam Extremities exam: Present: normal capillary refill - Back Exam Back exam: Absent: CVA tenderness (R), CVA tenderness (L) - Neurological Exam Neurological exam: Present: alert, CN II-XII intact, normal gait, reflexes normal. Absent: motor sensory deficit - Psychiatric Psychiatric exam: Present: normal affect, normal mood - Skin Skin exam: Present: warm, dry ED Course Vital Signs 04/16/21 13:33 Temperature 99.0 F Pulse Rate 74 Respiratory 14 Rate Blood Pressure 156/84 [Left] O2 Sat by Pulse 95 Oximetry - Reevaluation(s) Reevaluation #1: 04/16/21 13:52 Labs were ordered. Old records reviewed. Reevaluation #2: 04/16/21 16:31 Labs are noted and the patient was discharged ED Medical Decision Making - Lab Data Result diagrams: 04/16/21 14:20 - Medical Decision Making Patient presents secondary to nausea, vomiting, and diarrhea. She concerns for electrolyte problems. She was known to have renal disease. She does not have any electrolyte derangement that would require admission. She does not have significant calcium changes. Renal function can be managed as an outpatient. She is due for dialysis tomorrow. She does not have intractable vomiting. She is had no vomiting here. There has been no diarrhea here. We discussed food choices to help her symptoms. Critical Care Time: No Critical care attestation.: If time is entered above; I have spent that time in minutes in the direct care of this critically ill patient, excluding procedure time. ED Disposition Clinical Impression: Nausea vomiting and diarrhea, Referred by health child caregiver private home Disposition: HOME / SELF CARE / HOMELESS Is pt being admited?: No Condition: Stable Instructions: Food Choices to Help Relieve Diarrhea, Adult, Nausea and Vomiting, Adult, Abdominal Pain (ED) Additional Instructions: Follow-up with your regular doctor. Drink water. Return for problems. Continue taking calcium at home. Keep your appointment with your kidney doctor. Referrals: PRIMARY CARE, [Referring] - 3-5 Days
[2021-04-16 15:14] LABS: Calcium 9.1 mg/dL (8.4-10.2)
[2021-04-16 16:33] VITALS: BP 119/57
== END 2021-04-16 16:20 | disposition home or self-care (01) ==
LOC: ED 13:08
DX: R11.2 Nausea with vomiting, unspecified (principal); R19.7 Diarrhea, unspecified; I11.0 Hypertensive heart disease with heart failure; I50.9 Heart failure, unspecified; E11.9 Type 2 diabetes mellitus without complications; Z87.891 Personal history of nicotine dependence; Z91.018 Allergy to other foods; Z79.899 Other long term (current) drug therapy
CPT/HCPCS: 36415; 80048; 83735; 99283; J3490; Q0162

== ENCOUNTER 2021-05-08 14:52 | Emergency (ER) | payer MEDICARE ==
[2021-05-08] MEDS ORDERED: ONDANSETRON 4 MG/2 ML INJ IV ONE (16:06)
--- NOTE | 2021-05-08 16:11 | Emergency Department Report ---
ED General Adult HPI - General Chief complaint: Weakness Stated complaint: NAUSEA, DIZZY Time Seen by Provider: 05/08/21 16:01 Source: patient Mode of arrival: Ambulatory Limitations: No Limitations - History of Present Illness Initial comments: Patient is 66 years old female end-stage renal disease on hemodialysis. Patient presented to the ER accompanied by her daughter for evaluation of dizziness. Patient stated that dizziness started after she checked out from her dialysis center. She also reported nausea and vomiting. Patient denied any chest pain or shortness of breath. She also denied any headache, focal weakness numbness or tingling sensation. - Related Data Home Medications Medication Instructions Recorded Confirmed Last Taken cloNIDine [Catapres] 0.1 mg PO TID 03/16/18 03/16/18 Unknown Previous Rx's Medication Instructions Recorded Last Taken Type Aspirin [Aspirin BABY CHEW TAB] 81 mg PO QDAY #30 tab.chew 09/04/17 Unknown Rx AtorvaSTATin [Lipitor] 20 mg PO QHS #30 tablet 09/04/17 Unknown Rx Furosemide [Lasix TAB] 20 mg PO QDAY PRN #30 tablet 09/04/17 Unknown Rx Triamcinolone 0.1% [Kenalog 0.1% 1 applic TP TID tube 09/04/17 Unknown Rx CREAM] amLODIPine 10 mg PO DAILY #30 tablet 09/04/17 Unknown Rx carvediloL [Coreg] 25 mg PO BID tablet 09/04/17 Unknown Rx Cholecalciferol Vit D3 [Vitamin D3 5,000 unit PO DAILY #30 tablet 03/23/18 Unknown Rx 1,000 UNIT TAB] Losartan [Cozaar] 100 mg PO QDAY #60 tablet 03/23/18 Unknown Rx Allergies Allergy/AdvReac Type Severity Reaction Status Date / Time strawberry AdvReac Rash Verified 04/16/21 13:40 ED Review of Systems ROS: Stated complaint: NAUSEA, DIZZY Other details as noted in HPI Comment: All other systems reviewed and negative Constitutional: denies: chills, fever Respiratory: denies: cough, shortness of breath, SOB with exertion, SOB at rest, wheezing Cardiovascular: denies: chest pain, palpitations, dyspnea on exertion Gastrointestinal: nausea, vomiting. denies: abdominal pain, diarrhea, constipation, hematemesis, melena, hematochezia Musculoskeletal: denies: back pain Neurological: vertigo. denies: headache, weakness, numbness, paresthesias, confusion, abnormal gait ED Past Medical Hx - Past Medical History Hx Hypertension: Yes Hx Heart Attack/AMI: No Hx Congestive Heart Failure: Yes (home O2L) Hx Diabetes: Yes Hx Deep Vein Thrombosis: No Hx Liver Disease: No Hx Renal Disease: Yes Hx Kidney Stones: Yes Hx Asthma: No Hx COPD: No Additional medical history: Glaucoma - Surgical History Hx Coronary Stent: No Hx Pacemaker: No Hx Internal Defibrillator: No Hx Cholecystectomy: Yes - Social History Smoking Status: Never Smoker - Medications Home Medications: Home Medications Medication Instructions Recorded Confirmed Last Taken Type Aspirin [Aspirin BABY CHEW TAB] 81 mg PO QDAY #30 tab.chew 09/04/17 03/16/18 Unknown Rx AtorvaSTATin [Lipitor] 20 mg PO QHS #30 tablet 09/04/17 03/16/18 Unknown Rx Furosemide [Lasix TAB] 20 mg PO QDAY PRN #30 tablet 09/04/17 03/16/18 Unknown Rx Triamcinolone 0.1% [Kenalog 0.1% 1 applic TP TID tube 09/04/17 03/16/18 Unknown Rx CREAM] amLODIPine 10 mg PO DAILY #30 tablet 09/04/17 03/16/18 Unknown Rx carvediloL [Coreg] 25 mg PO BID tablet 09/04/17 03/16/18 Unknown Rx cloNIDine [Catapres] 0.1 mg PO TID 03/16/18 03/16/18 Unknown History Cholecalciferol Vit D3 [Vitamin D3 5,000 unit PO DAILY #30 tablet 03/23/18 Unknown Rx 1,000 UNIT TAB] Losartan [Cozaar] 100 mg PO QDAY #60 tablet 03/23/18 Unknown Rx ED Physical Exam - General Limitations: No Limitations General appearance: alert, in no apparent distress - Head Head exam: Present: atraumatic, normocephalic, normal inspection - Eye Eye exam: Present: normal appearance, PERRL - ENT ENT exam: Present: normal exam, normal orophraynx, mucous membranes moist - Neck Neck exam: Present: normal inspection, full ROM. Absent: tenderness, meningismus - Respiratory Respiratory exam: Present: normal lung sounds bilaterally - Cardiovascular Cardiovascular Exam: Present: regular rate, normal rhythm, normal heart sounds - GI/Abdominal GI/Abdominal exam: Present: soft, normal bowel sounds. Absent: distended, tenderness, guarding, rebound, rigid, organomegaly, mass, bruit, pulsatile mass, hernia - Extremities Exam Extremities exam: Present: normal inspection, full ROM, normal capillary refill - Back Exam Back exam: Present: normal inspection, full ROM. Absent: CVA tenderness (R), CVA tenderness (L) - Neurological Exam Neurological exam: Present: alert, oriented X3, CN II-XII intact. Absent: motor sensory deficit - Psychiatric Psychiatric exam: Present: normal mood - Skin Skin exam: Present: warm, intact, normal color ED Course Vital Signs 05/08/21 14:59 Temperature 97.5 F L Pulse Rate 84 Respiratory 16 Rate Blood Pressure 194/84 [Right] O2 Sat by Pulse 99 Oximetry ED Medical Decision Making - Lab Data Result diagrams: 05/08/21 16:19 05/08/21 16:19 - EKG Data -: EKG Interpreted by Ri EKG shows normal: sinus rhythm Rate: normal - EKG Data Interpretation: no acute changes - Radiology Data Radiology results: report reviewed - Medical Decision Making Patient is 66 years old female end-stage renal disease on hemodialysis. Patient presented to the ER accompanied by her daughter for evaluation of dizziness. Patient stated that dizziness started after she checked out from her dialysis center. She also reported nausea and vomiting. Patient denied any chest pain or shortness of breath. She also denied any headache, focal weakness numbness or tingling sensation. Labs reviewed and is unremarkable except for chronic elevation of her kidney function. CT brain is unremarkable. Patient given Zofran and stated that she is feeling much better. Patient advised to follow-up with her primary doctor in the next 2 to 3 days and to return to the ER if she develop any symptoms. Critical care attestation.: If time is entered above; I have spent that time in minutes in the direct care of this critically ill patient, excluding procedure time. ED Disposition Clinical Impression: Dizziness Disposition: 01 HOME / SELF CARE / HOMELESS Is pt being admited?: No Condition: Stable Instructions: Dizziness, [id number] Referrals: PRIMARY CARE, [Primary Care Provider] - 3-5 Days
[2021-05-08 16:48] LABS: Basophils % (Auto) 0.2 % (0.0-1.8); Eosinophils # (Auto) 0.2 K/mm3 (0.0-0.4); Eosinophils % (Auto) 2.5 % (0.0-4.3); Hematocrit 39.5 % (30.3-42.9); Hemoglobin 12.7 gm/dl (10.1-14.3); Lymphocytes # (Auto) 0.7 K/mm3 (1.2-5.4); Lymphocytes % (Auto) 10.2 % (13.4-35.0); Mean Corpuscular HGB Conc 32 % (30-34); Mean Corpuscular Volume 95 fl (79-97); Monocytes # (Auto) 0.4 K/mm3 (0.0-0.8); Monocytes % (Auto) 5.5 % (0.0-7.3); Platelet Count 254 K/mm3 (140-440); Red Blood Count 4.15 M/mm3 (3.65-5.03); Red Cell Distribution Width 16.5 % (13.2-15.2)
[2021-05-08 16:57] LABS: Calcium 9.4 mg/dL (8.4-10.2)
--- NOTE | 2021-05-08 17:00 | Cat Scan Report ---
CT HEAD WITHOUT CONTRAST INDICATION / CLINICAL INFORMATION: Syncope. TECHNIQUE: All CT scans at this location are performed using CT dose reduction for ALARA by means of automated exposure control. COMPARISON: None available. FINDINGS: HEMORRHAGE: None. EXTRA-AXIAL SPACES: Normal in size and morphology for the patient's age. VENTRICULAR SYSTEM: Normal in size and morphology for the patient's age. CEREBRAL PARENCHYMA: No significant abnormality. No acute territorial infarct. MIDLINE SHIFT / HERNIATION: None. CEREBELLUM / BRAINSTEM: No significant abnormality. ORBITS: Normal as visualized. SOFT TISSUES: No significant abnormality. SKULL: No significant abnormality. PARANASAL SINUSES / MASTOID AIR CELLS: Normal as visualized. ADDITIONAL FINDINGS: None. IMPRESSION: 1. No acute intracranial abnormality. Signer Name: Taras Duran MD Signed: 05/08/2021 4:56 PM Workstation Name: [id number]
[2021-05-08 19:25] VITALS: BP 146/76
== END 2021-05-08 19:26 | disposition home or self-care (01) ==
LOC: ED 14:52
DX: R42 Dizziness and giddiness (principal); I13.2 Hypertensive heart and chronic kidney disease with heart failure and with stage 5 chronic kidney disease, or end stage renal disease; N18.6 End stage renal disease; I50.9 Heart failure, unspecified; Z99.2 Dependence on renal dialysis; E11.8 Type 2 diabetes mellitus with unspecified complications; Z90.49 Acquired absence of other specified parts of digestive tract; Z91.018 Allergy to other foods
CPT/HCPCS: 36415; 70450; 80048; 85025; 96374; 99284; J2405